=== PATIENT | male | born 1940 | race Caucasian/White ===

== ENCOUNTER 2021-08-15 10:55 | Inpatient (IN) | payer MEDICARE ==
[~2021-08-15] VITALS: Ht 182.9 cm; Wt 92.5 kg
[2021-08-15] MEDS ORDERED: MULT-1136 PO (12:47)
[2021-08-15] MEDS ORDERED: BISA10SU8 RC (12:47)
[2021-08-15] MEDS ORDERED: ACET325C7 PO (12:47)
[2021-08-15] MEDS ORDERED: AMIO200T6 PO (12:47)
[2021-08-15] MEDS ORDERED: FLUT9.9S NSEACH (12:47)
[2021-08-15] MEDS ORDERED: PANT20TA18 PO (12:47)
[2021-08-15] MEDS ORDERED: FERR324T4 PO (12:47)
[2021-08-15] MEDS ORDERED: MAGN400O7 PO (12:47)
[2021-08-15] MEDS ORDERED: GABA300C PO (12:47)
[2021-08-15] MEDS ORDERED: AMLO-250 PO (12:47)
[2021-08-15] MEDS ORDERED: MORP4VIA INJ (12:47)
[2021-08-15] MEDS ORDERED: FURO40TA4 PO (12:47)
[2021-08-15] MEDS ORDERED: ASPI-1238 PO (12:47)
[2021-08-15] MEDS ORDERED: ROSU10TA28 PO (12:47)
[2021-08-15] MEDS ORDERED: DOCU100T2 PO (12:47)
[2021-08-15] MEDS ORDERED: DICL20GE TP (12:47)
[2021-08-15] MEDS ORDERED: ONDA4TAB11 PO (12:47)
[2021-08-15] MEDS ORDERED: POLY17PO6 PO (12:47)
[2021-08-15] MEDS ORDERED: BISA5TAB8 PO (12:47)
[2021-08-15] MEDS ORDERED: OXYC15TA56 PO (12:47)
[2021-08-15] MEDS ORDERED: FINA5TAB6 PO (12:47)
[2021-08-15] MEDS ORDERED: LOSA50TA63 PO (12:47)
[2021-08-15] MEDS ORDERED: NALO0.4D3 IJ (12:47)
[2021-08-15] MEDS ORDERED: DOXA8TAB73 PO (12:47)
[2021-08-15] MEDS ORDERED: TRZ50T PO (12:48)
[2021-08-15] MEDS ORDERED: ASCO100024 PO (12:48)
[2021-08-15] MEDS ORDERED: CHOL10007 PO (12:48)
[2021-08-15] MEDS ORDERED: SPIR25TA5 PO (12:48)
[2021-08-15] MEDS ORDERED: guaiFENesin/CODEINE (ROBITUSSIN AC) 10ML UDC PO PRN (14:30)
[2021-08-15] MEDS ORDERED: MELATONIN 3 MG TABLET PO PRN (14:30)
[2021-08-15] MEDS ORDERED: CALCIUM CARBONATE 500 MG (TUMS) TAB.CHEW PO PRN (14:30)
[2021-08-15] MEDS ORDERED: LACTULOSE SYRUP 10GM/15ML (ENULOSE) 30ML UDC PO PRN (14:30)
[2021-08-15] MEDS ORDERED: LOPERAMIDE 2 MG (IMODIUM) TABLET PO PRN (14:30)
[2021-08-15] MEDS ORDERED: DOCUSATE SODIUM 100 MG (COLACE) CAP PO PRN (14:30)
[2021-08-15] MEDS ORDERED: ALPRAZolam 0.25 MG (XANAX) TAB PO PRN (14:30)
[2021-08-15] MEDS ORDERED: FLEET ENEMA ADULT 1 EA BTL PR PRN (14:30)
[2021-08-15] MEDS ORDERED: diphenhydrAMINE 25 MG TAB (BENADRYL) PO PRN (14:30)
[2021-08-15] MEDS ORDERED: ONDANSETRON 4 MG (ZOFRAN) ORAL DISSOLVE TAB PO PRN ×2 (14:30→15:00)
[2021-08-15] MEDS ORDERED: BISACODYL 10 MG SUPP (DULCOLAX) PR PRN (14:30)
[2021-08-15] MEDS ORDERED: MILK OF MAGNESIA 400 MG/5 ML 30 ML UDC PO PRN (15:00)
[2021-08-15] MEDS ORDERED: PROMETHAZINE INJ 25 MG/ML (PHENERGAN) AMP IM PRN (15:00)
[2021-08-15] MEDS ORDERED: BISACODYL 10 MG SUPP (DULCOLAX) RC PRN (15:00)
[2021-08-15] MEDS ORDERED: PANTOPRAZOLE 20 MG TABLET (PROTONIX) PO PRN (15:00)
[2021-08-15] MEDS ORDERED: traZODone 50 MG (DESYREL) TAB PO PRN (15:00)
[2021-08-15] MEDS ORDERED: polyethylene glycoL POWDER 17 GM (MIRALAX) PACK PO SCH (15:00)
[2021-08-15] MEDS ORDERED: BISACODYL 5 MG (DULCOLAX) TABLET PO PRN (15:00)
[2021-08-15] MEDS ORDERED: OXYCODONE HCL 15 MG PO PRN (15:00)
[2021-08-15] MEDS ORDERED: morphine INJ 10 MG/ML 1ML (SYR OR VIAL) IVP PRN (15:00)
[2021-08-15] MEDS ORDERED: ONDANSETRON 4 MG/2 ML (SDV) Z0FRAN IVP PRN (15:00)
[2021-08-15] MEDS ORDERED: NON-FORMULARY MEDICATION 1 EA EA (Acetaminophen (Tylenol) 650 MG) PO PRN (15:00)
--- NOTE | 2021-08-15 15:00 | PM&R Post Admission Assessment ---
PM&R HP Date of Visit: Aug 15, 2021 Time of Visit: 15:00 History of Present Illness CC: Debility from lumbar spine surgery per Dr Hoang HPI: This is an 80-year-old white male patient of Dr. Pruitt in [place], Dr. Crum Cardiology, and Dr. Ramos oncology who has a past medical history of hepatocellular carcinoma on immunomodulators who presented to inpatient rehab due to slow recovery and severe nausea and vomiting with urinary retention in need of aggressive structured physical therapy in order to return home to independent living. Dr. Londono will be consulted. CC: Nausea and imbalance HPI: 80 yo frail man presents with nausea and imbalance following back surgery on Thursday (08/13) to address a slipped disk (attained in Sep 2020) performed by Dr. Hoang at [facility]. Pt's nausea started 2 days ago. Pt has had one bowel movement since surgery (yesterday). Pt only able to eat jello yesterday, on clear liquid diet now. Pt reports abdominal pain is 4.5-5/10. PMH: Heart attack (1988), AFib (dx 2019), hepatocellular carcinoma (dx Dec 2020), CAD, PAF (once), HTN, HLD, GERD, Carotid dx (40% stenosed) PSH: Appendectomy (1958), CABG (2011), R shoulder replaced (2013), L elbow nerve relocated (2014), cataract removed (2015), eyelid reduction (2016), back surgery for slipped disk (2020) ALL: fenofibrate Home Meds: Active Reported Vitamin D3 (Cholecalciferol (Vitamin D3)) 25 Mcg Capsule 25 Mcg PO DAILY Vitamin C (Ascorbic Acid) 1,000 Mg Tablet 1,000 Mg PO DAILY Trazodone HCl 50 Mg Tablet 50 Mg PO HS PRN Spironolactone 25 Mg Tablet 25 Mg PO DAILY Rosuvastatin Calcium 10 Mg Tablet 10 Mg PO HS Pantoprazole Sodium 20 Mg Tablet.dr 20 Mg PO DAILY PRN Roxicodone (Oxycodone HCl) 15 Mg Tablet 15 Mg PO Q6H PRN Multivitamin 1 Each Tablet 1 Each PO DAILY Losartan Potassium 50 Mg Tablet 50 Mg PO DAILY Neurontin (Gabapentin) 300 Mg Capsule 300 Mg PO TID Furosemide 40 Mg Tablet 40 Mg PO DAILY Flonase Allergy Relief (Fluticasone Propionate) 9.9 Ml [place].susp 2 [place] NSEACH DAILY Finasteride 5 Mg Tablet 5 Mg PO HS Ferrous Sulfate 324 Mg Tablet. 324 Mg PO DAILY Doxazosin Mesylate 8 Mg Tablet 8 Mg PO HS Voltaren Arthritis Pain (Diclofenac Sodium) 20 Gm Gel..gram. 1 Applic TP QID Aspirin EC (Aspirin) 81 Mg Tablet. 81 Mg PO DAILY Amlodipine Besylate 5 Mg Tablet 5 Mg PO DAILY Amiodarone HCl 200 Mg Tablet 200 Mg PO DAILY Miralax (Polyethylene Glycol 3350) 17 Gm Powd.pack 17 Gm PO Q12H Ondansetron Odt (Ondansetron) 4 Mg Tab.rapdis 4 Mg PO Q6H PRN Naloxone HCl 0.4 Mg/1 Ml Syringe 0.25 Ml IJ UD PRN Morphine Sulfate 4 Mg/1 Ml Vial 0.5 Ml INJ Q4H PRN Milk of Magnesia (Magnesium Hydroxide) 400 Mg/5 Ml Oral.susp 30 Ml PO DAILY PRN Docusate Sodium 100 Mg Tablet 100 Mg PO BID Bisacodyl 10 Mg Supp.rect 10 Mg RC DAILY PRN Bisacodyl 5 Mg Tablet.dr 10 Mg PO Q12H PRN Tylenol (Acetaminophen) 325 Mg Capsule 650 Mg PO Q6H PRN SH: Stopped cigarette smoking in 1974 No ETOH use No recretional drug use Lives with , has entirely handicapped home 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, 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) FH: Mother from "heart dx" in her 40's Father from "heart dx" at 92 ROS: No heart palpitations No SOB [place] feverish yesterday Feels cold Nausea and abdominal pain present Exam: Hyperactive bowel sounds Heart-RRR Lungs- wheezy Cap refill <3 sec Post tibial pulse (2/4) bilat No pedal edema Incision site healing well; TAE drain in place with slightly bloody discharge PT/OT had been in for eval Pt identified as being very heavy and difficult to move by his nurse, indicating inability to support himself Imaging: Acute abdominal series- limited view due to brace; gaseous distention small and large bowel diffusely; "nonspecific bowel gas pattern could suggest ileus" Labs: N/A Assessment: Possible ileus Nausea HTN Debility following surgery CAD Hepatocellular carcinoma Hx PAF HLD Hx GERD Plan: Consult surgery for possible ileus Address abdominal pain medically Get labs (CBC w/ diff, CMP) Start scopolamine patch Start IV Reglan 5mg q6, Phenergen IM Clear liquid diet Get an EKG Continue immunosuppressive trt for HCC PAPI RENTERIA Past Pkpbulf-Igounj-Uvlcfo Hx Past Med/Social Hx: Reviewed Nursing Past Med/Soc Hx, Reviewed and Corrections made Patient Social History Marrital Status: Employed/Student: retired Alcohol Use: Denies Use Smoking Status: Never a Smoker Past Medical History Surgeries: Orthopedic Cardiac: Atrial Fibrillation, Coronary Artery Disease, High Cholesterol, Hypertension Gastrointestinal: Gastroesophageal Reflux Musculoskeletal: Chronic Back Pain Cancer: Liver Did You Recieve Any Treatments: Yes What Type of Treatment Did You: Other (immunomodulator) PM&R Allergy/Meds/Data Review Allergies Coded Allergies: fenofibrate (Verified Allergy, Unknown, 08/15/21) Home Medications Scheduled Amiodarone HCl (Amiodarone HCl), 200 MG PO DAILY, (Reported) Amlodipine Besylate (Amlodipine Besylate), 5 MG PO DAILY, (Reported) Ascorbic Acid (Vitamin C), 1,000 MG PO DAILY, (Reported) Aspirin (Aspirin EC), 81 MG PO DAILY, (Reported) Cholecalciferol (Vitamin D3) (Vitamin D3), 25 MCG PO DAILY, (Reported) Diclofenac Sodium (Voltaren Arthritis Pain), 1 APPLIC TP QID, (Reported) Docusate Sodium (Docusate Sodium), 100 MG PO BID, (Reported) Doxazosin Mesylate (Doxazosin Mesylate), 8 MG PO HS, (Reported) Ferrous Sulfate (Ferrous Sulfate), 324 MG PO DAILY, (Reported) Finasteride (Finasteride), 5 MG PO HS, (Reported) Fluticasone Propionate (Flonase Allergy Relief), 2 SPRAY NSEACH DAILY, (Reported) Furosemide (Furosemide), 40 MG PO DAILY, (Reported) Gabapentin (Neurontin), 300 MG PO TID, (Reported) Losartan Potassium (Losartan Potassium), 50 MG PO DAILY, (Reported) Multivitamin (Multivitamin), 1 EACH PO DAILY, (Reported) Polyethylene Glycol 3350 (Miralax), 17 GM PO Q12H, (Reported) Rosuvastatin Calcium (Rosuvastatin Calcium), 10 MG PO HS, (Reported) Spironolactone (Spironolactone), 25 MG PO DAILY, (Reported) Scheduled PRN Acetaminophen (Tylenol), 650 MG PO Q6H PRN for PAIN-MILD (1-4), (Reported) Bisacodyl (Bisacodyl), 10 MG PO Q12H PRN for CONSTIPATION-4TH LINE, (Reported) Bisacodyl (Bisacodyl), 10 MG RC DAILY PRN for CONSTIPATION-4TH LINE, (Reported) Magnesium Hydroxide (Milk of Magnesia), 30 ML PO DAILY PRN for CONSTIPATION-7TH LINE, (Reported) Morphine Sulfate (Morphine Sulfate), 0.5 ML INJ Q4H PRN for PAIN-SEVERE (8-10), (Reported) Naloxone HCl (Naloxone HCl), 0.25 ML IJ UD PRN for NARCOTIC SEDATION/OVERDOSE, (Reported) Ondansetron (Ondansetron Odt), 4 MG PO Q6H PRN for NAUSEA/VOMITING-1ST LINE, (Reported) Oxycodone HCl (Roxicodone), 15 MG PO Q6H PRN for PAIN-SEVERE (8-10), (Reported) Pantoprazole Sodium (Pantoprazole Sodium), 20 MG PO DAILY PRN for HEARTBURN, (Reported) Trazodone HCl (Trazodone HCl), 50 MG PO HS PRN for SLEEP, (Reported) Current Medications Current Medications Reviewed Review of Systems Constitutional: see HPI, malaise, weakness EENTM: no symptoms reported Respiratory: no symptoms reported Cardiovascular: no symptoms reported Gastrointestinal: loss of appetite, nausea, vomiting Genitourinary: other (retention) Musculoskeletal: back pain Skin: no symptoms reported Psychiatric/Neurological: No Symptoms Reported All Other Systems Reviewed Negative Unless Noted: Yes Physical Exam Physical Exam Vital Signs Capillary Refill : Height, Weight, BMI Height: '" Weight: lbs. oz. kg; BMI Method: General Appearance: No Apparent Distress, WD/WN, Chronically ill, Obese, Other (pale) Eyes: Bilateral Eye Normal Inspection, Bilateral Eye PERRL HEENT: PERRL/EOMI, Normal ENT Inspection, Pharynx Normal Neck: Full Range of Motion, Normal Inspection, Non Tender, Supple, Carotid Bruit Respiratory: Chest Non Tender, Lungs Clear, No Accessory Muscle Use, No Res piratory Distress, Decreased Breath Sounds Cardiovascular: Regular Rate, Rhythm, No Edema, No Gallop, No JVD, No Murmur, Normal Peripheral Pulses Gastrointestinal: Normal Bowel Sounds, No Organomegaly, No Pulsatile Mass, Non Tender, Soft Back: Normal Inspection, No CVA Tenderness, No Vertebral Tenderness Extremity: Normal Capillary Refill, Normal Inspection, Normal Range of Motion (limited lower extremities), Non Tender, No Calf Tenderness, No Pedal Edema Neurologic/Psychiatric: Alert, Oriented x3, No Motor/Sensory Deficits, track greaser II- XII Norm as Tested, Abnormal Gait, Depressed Affect, Motor Weakness (lower legs) Skin: Normal Color, Warm/Dry Lymphatic: No Adenopathy PM&R Medical Assessment & Plan REHAB/MEDICAL ASSESSMENT AND PLAN: REHAB IMPAIRMENT GROUP: Lumbar stenosis ETIOLOGIC DIAGNOSIS: Lumbar stenosis The comorbidities that impact the patients function and/or functional outcome by: Hepatocellular carcinoma on immunomodulator, severe postoperative nausea and vomiting, urinary retention, severe debility REHAB PLAN: The patient is being admitted to our comprehensive inpatient rehabilitation facility and can tolerate the intensity of service consisting of at least: 180 minutes of therapy a day, 5 out of 7 days a week Rehab treatment will consist of: PT and OT will focus on regaining function well nausea and vomiting subsides in order to use assistive devices to increase independence in ADLs to return back home with The patient/family has a good understanding of our discharge process and will benefit from an interdisciplinary inpatient rehabilitation program. The patient has potential to make improvement and is in need of at least two of the following multidisciplinary therapies including but not limited to physical, occupational, speech, and prosthetics and orthotics. Additionally the patient will need services from respiratory, nutritional services, wound care, psychology, etc. (Customize this to each patient). Given the patients complex condition and risk of further medical complications, rehabilitation services cannot be safely or effectively provided at a lower level of care such as a care home facility. BARRIERS TO DISCHARGE: Severe debility with nausea and vomiting ESTIMATED LOS: 10 days DISPOSITION: Home RELEVANT CHANGES SINCE PREADMISSION SCREENING: I have compared the patients medical and functional status at the time of the preadmission screening and there are: No changes PROGNOSIS: Fair REHABILITATION GOALS: 1. PT and OT will focus on regaining function well nausea and vomiting subsides in order to use assistive devices to increase independence in ADLs to return back home with All the above goals were reviewed with the patient and he/she is in agreement. By signing this document, I acknowledge that I have personally performed a full physical examination on this patient within 24 hours of admission to this inpatient rehabilitation facility and have determined the patient to be able to tolerate the above course of treatment at an intensive level for a reasonable period of time. I will be completing a detailed individualized Plan of Care for this patient by day #4 of the patients stay based upon the Preadmission Screen, the Post-Admission Evaluation, and the therapy evaluations. Admission Dx/Comorbidities: (1) Spinal stenosis ICD Codes: M48.00 - Spinal stenosis, site unspecified (2) Hepatocellular carcinoma ICD Codes: C22.0 - Liver cell carcinoma (3) Encounter for monitoring immunomodulating therapy ICD Codes: Z51.81 - Encounter for therapeutic drug level monitoring; Z79.899 - Other terminal system operator (current) drug therapy (4) Nausea and vomiting ICD Codes: R11.2 - Nausea with vomiting, unspecified (5) Urinary retention ICD Codes: R33.9 - Retention of urine, unspecified Assessment/Plan Assessment and Plan Assess & Plan/Chief Complaint Assessment: Status post spinal stenosis surgery by Dr. HOANG Hepatocellular carcinoma on immune modulator for Dr. Ramos Severe nausea and vomiting postoperatively Mccormick cath in place Urinary retention Atrial fibrillation CAD Plan: Inpatient rehab protocol Supportive care Gentle IV fluid WARREN FARAH DO Aug 15, 2021 15:00
[2021-08-15] MEDS ORDERED: morphine INJ 4 MG/ML 1 ML (VIAL/SYRINGE) IV PRN (15:30)
[2021-08-15] MEDS ORDERED: SCOPOLAMINE 1.5 MG (TRANSDERM-SCOP) PATCH TD NR (15:30)
--- NOTE | 2021-08-15 15:33 | Consultation-Cardiology ---
HPI-Cardiology Cardiology Consultation: Date of Consultation 08/15/21 Time Seen by a Provider: 15:30 Date of Admission 08-15-21 Attending Physician Pina Arreola DO Admitting Physician Arnold James MD Consulting Physician Mariano Londono MD HPI: Chief Complaint: Cardiac management Mr. Reddy is an 80 yr old male admitted to [facility] from [facility] following back surgery on 08-13-[address] Hoang. He reports his primary computer systems hardware analyst is Dr. Crum whom he sees in [place], [place]. He denies any c/o CP, SOB, palpitations, syncope, near syncope or LE swelling. He is reporting nausea. Review of Systems-Cardiology Review of Systems Constitutional: No chills, No fever, No lightheadedness Eyes: No vision change Ears/Nose/Throat: No epistaxis, No recent hearing loss Respiratory: As described under HPI Cardiovascular: As described under HPI Gastrointestinal: No constipation, No diarrhea; nausea, vomiting Genitourinary: other (urinary catheter in place) Skin: No rash on exposed areas, No ulcerations on exposed areas Psychiatric/Neurological: No anxiety, No depression, No syncope Hematologic: No bleeding abnormalities NBC-Rrfitb-Ucnwft Hx Past Medical History PMH As described under Assessment. Family Medical History Family Medical History: No reported family h/o CAD Allergies and Home Medications Allergies Coded Allergies: fenofibrate (Verified Allergy, Unknown, 08/15/21) Patient Home Medication List Acetaminophen (Tylenol) 325 Mg Capsule, 650 MG PO Q6H PRN for PAIN-MILD (1-4), (Reported) Entered as Reported by: SARAH MONIQUE on 08/15/211246 Last Action: Converted Amiodarone HCl (Amiodarone HCl) 200 Mg Tablet, 200 MG PO DAILY, (Reported) Entered as Reported by: SARAH MONIQUE on 08/15/211246 Last Action: Continued Amlodipine Besylate (Amlodipine Besylate) 5 Mg Tablet, 5 MG PO DAILY, (Reported) Entered as Reported by: SARAH MONIQUE on 08/15/211246 Last Action: Continued Ascorbic Acid (Vitamin C) 1,000 Mg Tablet, 1,000 MG PO DAILY, (Reported) Entered as Reported by: SARAH MONIQUE on 08/15/21 124 Last Action: Held Aspirin (Aspirin EC) 81 Mg Tablet.dr, 81 MG PO DAILY, (Reported) Entered as Reported by: SARAH MONIQUE on 08/15/211246 Last Action: Continued Bisacodyl (Bisacodyl) 5 Mg Tablet.dr, 10 MG PO Q12H PRN for CONSTIPATION-4TH LINE, (Reported) Entered as Reported by: SARAH MONIQUE on 08/15/211246 Last Action: Continued Bisacodyl (Bisacodyl) 10 Mg Supp.rect, 10 MG RC DAILY PRN for CONSTIPATION-4TH LINE, (Reported) Entered as Reported by: SARAH MONIQUE on 08/15/211246 Last Action: Continued Cholecalciferol (Vitamin D3) (Vitamin D3) 25 Mcg Capsule, 25 MCG PO DAILY, (Reported) Entered as Reported by: SARAH MONIQUE on 08/15/211247 Last Action: Held Diclofenac Sodium (Voltaren Arthritis Pain) 20 Gm Gel..gram., 1 APPLIC TP QID, (Reported) Entered as Reported by: SARAH MONIQUE on 08/15/211246 Last Action: Continued Docusate Sodium (Docusate Sodium) 100 Mg Tablet, 100 MG PO BID, (Reported) Entered as Reported by: SARAH MONIQUE on 08/15/211246 Last Action: Held Doxazosin Mesylate (Doxazosin Mesylate) 8 Mg Tablet, 8 MG PO HS, (Reported) Entered as Reported by: SARAH MONIQUE on 08/15/211246 Last Action: Converted Ferrous Sulfate (Ferrous Sulfate) 324 Mg Tablet.dr, 324 MG PO DAILY, (Reported) Entered as Reported by: SARAH MONIQUE on 08/15/211246 Last Action: Held Finasteride (Finasteride) 5 Mg Tablet, 5 MG PO HS, (Reported) Entered as Reported by: SARAH MONIQUE on 08/15/211246 Last Action: Continued Fluticasone Propionate (Flonase Allergy Relief) 9.9 Ml [place].susp, 2 SPRAY NSEACH DAILY, (Reported) Entered as Reported by: SARAH MONIQUE on 08/15/211246 Last Action: Converted Furosemide (Furosemide) 40 Mg Tablet, 40 MG PO DAILY, (Reported) Entered as Reported by: SARAH MONIQUE on 08/15/211246 Last Action: Held Gabapentin (Neurontin) 300 Mg Capsule, 300 MG PO TID, (Reported) Entered as Reported by: SARAH MONIQUE on 08/15/211246 Last Action: Continued Losartan Potassium (Losartan Potassium) 50 Mg Tablet, 50 MG PO DAILY, (Reported) Entered as Reported by: SARAH MONIQUE on 08/15/211246 Last Action: Continued Magnesium Hydroxide (Milk of Magnesia) 400 Mg/5 Ml Oral.susp, 30 ML PO DAILY PRN for CONSTIPATION-7TH LINE, (Reported) Entered as Reported by: SARAH MONIQUE on 08/15/211246 Last Action: Continued Morphine Sulfate (Morphine Sulfate) 4 Mg/1 Ml Vial, 0.5 ML INJ Q4H PRN for PAIN- SEVERE (8-10), (Reported) Entered as Reported by: SARAH MONIQUE on 08/15/211246 Last Action: Held Multivitamin (Multivitamin) 1 Each Tablet, 1 EACH PO DAILY, (Reported) Entered as Reported by: SARAH MONIQUE on 08/15/211246 Last Action: Held Naloxone HCl (Naloxone HCl) 0.4 Mg/1 Ml Syringe, 0.25 ML IJ UD PRN for NARCOTIC SEDATION/OVERDOSE, (Reported) Entered as Reported by: SARAH MONIQUE on 08/15/211246 Last Action: Held Ondansetron (Ondansetron Odt) 4 Mg Tab.rapdis, 4 MG PO Q6H PRN for NAUSEA/VOMITING-1ST LINE, (Reported) Entered as Reported by: SARAH MONIQUE on 08/15/211246 Last Action: Continued Oxycodone HCl (Roxicodone) 15 Mg Tablet, 15 MG PO Q6H PRN for PAIN-SEVERE (8- 10), (Reported) Entered as Reported by: SARAH MONIQUE on 08/15/211246 Last Action: Converted Pantoprazole Sodium (Pantoprazole Sodium) 20 Mg Tablet.dr, 20 MG PO DAILY PRN for HEARTBURN, (Reported) Entered as Reported by: SARAH MONIQUE on 08/15/211246 Last Action: Continued Polyethylene Glycol 3350 (Miralax) 17 Gm Powd.pack, 17 GM PO Q12H, (Reported) Entered as Reported by: SARAH MONIQUE on 08/15/211246 Last Action: Continued Rosuvastatin Calcium (Rosuvastatin Calcium) 10 Mg Tablet, 10 MG PO HS, (Reported) Entered as Reported by: SARAH MONIQUE on 08/15/211246 Last Action: Continued Spironolactone (Spironolactone) 25 Mg Tablet, 25 MG PO DAILY, (Reported) Entered as Reported by: SARAH MONIQUE on 08/15/211247 Last Action: Held Trazodone HCl (Trazodone HCl) 50 Mg Tablet, 50 MG PO HS PRN for SLEEP, (Reported) Entered as Reported by: SARAH MONIQUE on 08/15/211247 Last Action: Continued Physical Exam-Cardiology Physical Exam Vital Signs/I&O 08/16/21 07:49 Temp 37.0 Pulse 74 Resp 24 B/P (MAP) 157/67 (97) Pulse Ox 96 O2 Delivery Nasal Cannula O2 Flow Rate 1.00 Capillary Refill : Constitutional: AAO x 3, well-developed, well-nourished HEENT: PERRL, hearing is well preserved Neck: carotid bruit, carotid pulses are 2 + bilaterally Respiratory: No accessory muscle use, No respiratory distress; chest expansion is symmetric, chest is bilaterally symmetric, lungs clear to auscultation Cardiovascular: regular rate-rhythm, S1 and S2 Gastrointestinal: No tender; soft, hernia (umbilical), audible bowel sounds Genital/Rectal: other (urinary catheter in place) Extremities: no lower extremity edema bilateral Neurologic/Psychiatric: grossly intact (moves all extremities) Skin: jaundice Other comments Dressing in place to back; did not remove; TAE drain in place with sanguineous drainage Data Review Labs Laboratory Tests 08/16/21 05:40: White Blood Count 4.8, Red Blood Count 2.78L, Hemoglobin 8.4L, Hematocrit 25L, Mean Corpuscular Volume 90, Mean Corpuscular Hemoglobin 30, Mean Corpuscular Hemoglobin Concent 34, Red Cell Distribution Width 13.5, Platelet Count 94L, Mean Platelet Volume 8.6L, Immature Granulocyte % (Auto) 1, Neutrophils (%) (Auto) 75, Lymphocytes (%) (Auto) 9L, Monocytes (%) (Auto) 15H, Eosinophils (%) (Auto) 0, Basophils (%) (Auto) 0, Neutrophils # (Auto) 3.7, Lymphocytes # (Auto) 0.4L, Monocytes # (Auto) 0.7, Eosinophils # (Auto) 0.0, Basophils # (Auto) 0.0, Immature Granulocyte # (Auto) 0.0, Percent Immature Platelet Fraction 1.4, Sodium Level 128L, Potassium Level 4.0, Chloride Level 98, Carbon Dioxide Level 23, Anion Gap 7, Blood Urea Nitrogen 15, Creatinine 0.64, Estimat Glomerular Filtration Rate 120, BUN/Creatinine Ratio 23, Glucose Level 109H, Calcium Level 7.8L, Corrected Calcium 8.4L, Total Bilirubin 1.3H, Aspartate Amino Transf (AST/SGOT) 30, Alanine Aminotransferase (ALT/SGPT) 21, Alkaline Phosphatase 43, Total Protein 5.4L, Albumin 3.2 A/P-Cardiology Assessment/Admission Diagnosis Recent back surgery at [facility] in [place], [place] by Dr. [place] on 08-13-21 CAD - H/O coronary stent placement x1 in Oct 2011 at [facility] - H/O CABG at [facility] in Dec 2011 - exact details unknown H/O PAF - reports one episode in 2019 - maintained on Amiodarone and ASA - reports no reoccurrence - managed by Dr. Crum Carotid dz - reports 40% blockage - unsure of exact details HTN - controlled HLD - statin tx - followed by Dr. Guzman Oncology - Liver cancer for which he is receiving immunosuppressive tx - dx in Dec 2020 GERD Nausea - undetermined etiology - management per medical services Discussion and Recomendations Records from [facility] reviewed in depth Continue current medication regimen Request records from Dr. Crum at [facility] Management of nausea per medical services Monitor lab from time to time Further recs will be based on his course We would like to thank Dr. Arreola for this consult RACHEL DAY Aug 15, 2021 15:33
[2021-08-15] MEDS: NS IV 1000 ML 1,000 ML IV SCH (15:58)
[2021-08-15] MEDS: METOCLOPRAMIDE INJ 10 MG/2 ML (REGLAN) IVP SCH ×2 (15:59→21:36)
--- NOTE | 2021-08-15 15:59 | Physical Therapy Evaluation ---
PT Evaluation-General Medical Diagnosis Admission Date Aug 15, 2021 at 14:30 Medical Diagnosis: Lumbar laminectomy Onset Date: Aug 13, 2021 Therapy Diagnosis Therapy Diagnosis: impaired mobility, strength, endurance Precautions Precautions/Isolations: Fall Prevention, Standard Precautions Referral Physician: Pina Arreola DO Reason for Referral: Evaluation/Treatment Medical History Pertinent Medical History: Atrial Fib, CABG, HTN, [place] Reviewed History: Yes Social History Home: Single Level Current Living Status: Spouse Entry Into Home: Level Entry Prior Prior Level of Function SCALE: Activities may be completed with or without assistive devices. 8-Erqaxxbcio-zhhautl completes the activity by him/herself with no assistance from a helper. 5-Set-up or Clean-up Assistance-helper sets up or cleans up; patient completes activity. [place] assists only prior to or following the activity. 4-Supervision or Touching Assistance-helper provides verbal cues and/or touching/steadying and/or contact guard assistance as patient completes activity. Assistance may be provided throughout the activity or intermittently. 3-Partial/Moderate Assistance-helper does LESS THAN HALF the effort. [place] lifts, holds or supports trunk or limbs, but provides less than half the effort. 2-Substantial/Maximal Assistance-helper does MORE THAN HALF the effort. [place] lifts or holds trunk or limbs and provides more than half the effort. 6-Elntrxrgm-sajywt does ALL the effort. Patient does none of the effort to complete the activity. Or, the assistance of 2 or more helpers is required for the patient to complete the activity. If activity was not attempted, code reason: 7-Patient Refused. 9-Not Applicable-not attempted and the patient did not perform the activity before the current illness, exacerbation or injury. 10-Not Attempted due to Environmental Limitations-(lack of equipment, weather restraints, etc.). 88-Not Attempted due to Medical Conditions or Safety Concerns. Bed Mobility: 6 Transfers (B,C,W/C): 6 Gait: 6 Indoor Mobility (Ambulation): Independent SPC PT Evaluation-Current Subjective Patient in bed pre tx, agrees to PT, has 3/10 pain in back. Will be co-treating with OT due to poor patient mobility, strength, endurance, increased pain with activity, coordinate UE and LE with activity, safety and reduce risk of falls. Pt/Family Goals to be independent at home Objective Patient Orientation: Person, Place, Situation back brace ROM/Strength ROM Lower Extremities WNL Strength Lower Extremities LLE (hip flexion 3-/5, knee flexion 3+/5, knee extension 3+/5, dorsiflexion 3+/5), RLE (hip flexion 3-/5, knee flexion 3+/5, knee extension 3+/5, dorsiflexion 3+/5) Sensory Hearing: Functional Sensation Right Lower Extremit: Intact Sensation Left Lower Extremity: Impaired (patient has some numbness on his left foot) Transfers Roll Left & Right (QC): 3 Sit to Lying (QC): 1 Lying to Sitting/Side of Bed(Q: 1 Sit to Stand (QC): 3 Chair/Fgt-yo-Axsvj Xfer(QC): 3 Toilet Transfer (QC): 3 Car Transfer (QC): 88 Patient performs bed mobility with mod assist, supine <-> sit dependent (assist of 2), sit <-> stand mod assist, transfers min assist. Patient is not safe to perform a car transfer at this time due to unsteadiness and pain. Patient needs cues for hand placement and safety. Gait Does the Patient Walk?: Yes Mode of Locomotion: Walk Anticipated Mode of Locomotion: Walk Walk 10 feet (QC): 3 Walk 50 ft with 2 Turns(QC): 88 Walk 150 ft (QC): 88 Walking 10ft/uneven surface-QC: 88 Distance: 10'x3 Gait Assistive Device: FWW Comments/Gait Description Patient can ambulate 10' with a rolling walker with min assist. Patient needs assist with balance, is very unsteady, lists to the left, knees act like they are going to buckle. Wheelchair Training Does the Pt Use a Wheelchair?: Yes Distance: 100'x2 Wheel 50 ft with 2 turns (QC): 3 Wheel 150 ft (QC): 88 Type of Wheelchair: Manual Stairs 1 Step (curb) (QC): 88 4 Steps (QC): 88 12 Steps (QC): 88 Balance Sitting Static: Fair Sitting Dynamic: Fair Standing Static: Poor Standing Dynamic: Poor Picking up an Object (QC): 88 Treatment PT performed bed mobility and transfers, ambulation, WC mobility, standing and positioning during dressing and bathing, OT performed dressing and bathing, brace don/doff training, UE positioning and safety during activity. Assessment/Needs Patient in bed post tx with nurse call, phone, tray, all needs met. Patient has impaired mobility, strength, endurance. Patient needs assist especially during ambulation due to possible knee buckling. Rehab Potential: Fair PT Short Term Goals Short Term Goals Time Frame: Aug 22, 2021 Roll Left & Right: 4 Sit to lyin Lying to sitting on side of be: 3 Sit to stand: 4 Chair/gfd-cs-didso transfer: 4 Walk 10 feet: 4 Walk 50 feet with two turns: 4 PT Nursing Home Goals Labor Relations Analyst Goals PT Labor Relations Analyst Goals Time Frame: Sep 05, 2021 Roll Left & Right (QC): 4 Sit to Lying (QC): 4 Lying-Sitting on Side/Bed(QC): 4 Sit to Stand (QC): 4 Chair/Ipm-sq-Hnare Xfer(QC): 4 Toilet Transfer (QC): 4 Car Transfer (QC): 4 Does the Patient Walk: Yes Walk 10 feet (QC): 4 Walk 50ft with 2 Turns (QC): 4 Walk 150 ft (QC): 4 Walking 10ft on Uneven Surface: 4 1 Step (curb) (QC): 4 4 Steps (QC): 4 12 Steps (QC): 88 Picking up an Object (QC): 88 Wheel 50 feet with 2 turns (QC: 9 Wheel 150 feet: 9 PT Plan Problem List Problem List: Activity Tolerance, Functional Strength, Safety, Balance, Gait, Transfer, Bed Mobility, ROM Treatment/Plan Treatment Plan: Continue Plan of Care Treatment Plan: Bed Mobility, Education, Functional Activity Itzel, Functional Strength, Group Therapy, Gait, Safety, Therapeutic Exercise, Transfers Treatment Duration: Sep 05, 2021 Frequency: At least 5 of 7 days/Wk (IRF) Estimated Hrs Per Day: 1.5 hours per day Patient and/or Family Agrees t: Yes Safety Risks/Education Patient Education: Gait Training, Transfer Techniques, Reviewed Precautions, Correct Positioning, W/C Management, Reviewed Don/Doff Brace, Safety Issues Teaching Recipient: Patient Teaching Methods: Demonstration, Discussion Response to Teaching: Reinforcement Needed Discharge Recommendations Plan Patient will perform bed mobility and transfer training, balance and endurance training, functional strengthening, stair training, gait training, and education, to improve functional mobility and independence at home. Therapy Discharge Recommendati: Scheduled Assistance, Home & Family, Post Acute PT Time/GCodes Time In: 1440 Time Out: 1610 Total Billed Treatment Time: 90 Total Billed Treatment 1 visit EVM 10' FA 80' PT eval from [id number], co-treat from [id number] ANITRA MORALES PT Aug 15, 2021 15:59
--- NOTE | 2021-08-15 16:02 | Occupational Therapy Eval ---
OT Evaluation-General/PLF Medical Diagnosis Admission Date Aug 15, 2021 at 14:30 Medical Diagnosis: Lumbar laminectomy Onset Date: Aug 13, 2021 Therapy Diagnosis Therapy Diagnosis: Impaired adls, strength, balance, safety, endurance Precautions Precautions/Isolations: Fall Prevention, Standard Precautions Comments Spinal precautions. Lifting restriction of 5 lbs. Brace on at all times when OOB. Pt able to shower, dressing must remain on and new dressing donned post shower. Referral Physician: amanda Medical History Pertinent Medical History: Atrial Fib, CABG, HTN, [place] Additional Medical History Cancer (liver), pneumonia, Rt shoulder replacement, Current History Pt direct admit from [facility]. S/P L4-S1, TLIF, PSF with L5-S1 Yusuf laminectomy, and L4-5 decompression. He reports living in a single story home with his . Indep with adls. His performs all IADLs. He states he was using a walker within his home and a cane when out in the community. Reviewed History: Yes Social History Home: Single Level Current Living Status: Spouse Entry Into Home: Level Entry ADL-Prior Level of Function SCALE: Activities may be completed with or without assistive devices. 8-Tjwxuhvzqp-jfxdtzb completes the activity by him/herself with no assistance from a helper. 5-Set-up or Clean-up Assistance-helper sets up or cleans up; patient completes activity. [place] assists only prior to or following the activity. 4-Supervision or Touching Assistance-helper provides verbal cues and/or touching/steadying and/or contact guard assistance as patient completes activity. Assistance may be provided throughout the activity or intermittently. 3-Partial/Moderate Assistance-helper does LESS THAN HALF the effort. [place] lifts, holds or supports trunk or limbs, but provides less than half the effort. 2-Substantial/Maximal Assistance-helper does MORE THAN HALF the effort. [place] lifts or holds trunk or limbs and provides more than half the effort. 2-Gmeexbjvj-gyypad does ALL the effort. Patient does none of the effort to complete the activity. Or, the assistance of 2 or more helpers is required for the patient to complete the activity. If activity was not attempted, code reason: 7-Patient Refused. 9-Not Applicable-not attempted and the patient did not perform the activity before the current illness, exacerbation or injury. 10-Not Attempted due to Environmental Limitations-(lack of equipment, weather restraints, etc.). 88-Not Attempted due to Medical Conditions or Safety Concerns. Self Care: Independent Functional Cognition: Independent DME/Equipment: Bath Chair, Shower Drive Self: Yes OT Current Status Subjective Pt reports pain as 5/10. Rn notified. Agreeable to treatment. Appearance Pt left sitting in chair, all needs within reach at OT departure. Mental Status/Objective Patient Orientation: Person, Place, Situation Attachments: Drains, Mccormick Catheter, IV, Oxygen, Other-See Comments Current Dentures/Partials: No Hand Dominance: Right Upper Extremity ROM RUE with old shoulder replacement; full range. LUE shoulder flex: ~60 degrees AROM, ~125 degerees PROM (to pain tolerance) Elbow-distally: WFL TAE drain. ADL-Treatment Eating (QC): 6 Oral Hygiene (QC): 3 Shower/Bathe Self (QC): 3 (mod) Upper Body Dressing (QC): 3 (min) Lower Body Dressing (QC): 2 On/Off Footwear (QC): 1 Toileting Hygiene (QC): 2 Co-treat with PT secondary to poor activity tolerance, pain, impaired balance and high fall risk. Education on spinal precautions given at start of session. Mod a to roll R and maintain log roll technique. Max a to elevate trunk and bring LEs' off side of bed. Dep to don/doff brace. Pt unable to stand from lower surface. Mod-max a to stand from elevated height. Pt very unsteady on feet, re quires mod a for balance. With distractions and fatigue, balance worsens. Poor management with walker as pt has tendency to push walker too far anteriorly. He was able to propel w/c to/from therapy gym but requires several rest breaks secondary to fatigue. Partial Sponge bath performed at w/c level. Cues to initiate washing certain body parts. Max a to stand. Dep to wash buttocks as pt requires BUE support to maintain balance. LB not addressed. At this time, pt would require assist to wash below knees due to poor flexibility and would benefit from instruction on use of LHS. (for adherence to spinal precautions.) Min a to don shirt as pt needed assist with pulling down around torso. Dep to don/doff socks. Again, pt would benefit from education on use of AE. Pt sat in w/c for grooming tasks, yet if performed at baseline (standing), pt would require balance assist to complete task. Education OT Patient Education: Correct positioning, Energy conservation, Instructions don/doff splint/brace, Modified ADL techniques, Progress toward Goal/Update tx plan, Purpose of tx/functional activities, Reviewed precautions, Rehab process, Safety issues, Transfer techniques, Use of adapted equipment, W/C management Teaching Recipient: Patient Teaching Methods: Demonstration, Discussion Response to Teaching: Verbalize Understanding, Reinforcement Needed OT Short Term Goals Short Term Goals Time Frame: Aug 29, 2021 Eatin Oral hygiene: 5 Toileting hygiene: 3 (min) Shower/bathe self: 3 (min) Upper body dressin Lower body dressin Putting on/taking off footwear: 3 OT Mcc Goals Hl7 Developer Goals Time Frame: Sep 05, 2021 Eating (QC): 6 Oral Hygiene (QC): 6 Toileting Hygiene (QC): 6 Shower/Bathe Self (QC): 4 Upper Body Dressing (QC): 5 Lower Body Dressing (QC): 4 On/Off Footwear (QC): 5 1=Demonstrate adherence to instructed precautions during ADL tasks. 2=Patient will verbalize/demonstrate understanding of assistive devices/modifications for ADL. 3=Patient will improve strength/tolerance for activity to enable patient to perform ADL's. OT Education/Plan Problem List/Assessment Assessment: Decreased Activ Tolerance, Decreased Safety Aware, Decreased UE Strength, Impaired Bed Mobility, Impaired Cognition, Impaired Funct Balance, Impaired Self-Care Skills, Restricted Funct UE ROM Discharge Recommendations Plan/Recommendations: Continue POC Target Placement ongoing assessment. Anticipate Home health with family support. Treatment Plan/Plan of Care Treatment,Training & Education: Yes Patient would benefit from OT for education, treatment and training to promote independence in ADL's, mobility, safety and/or upper extremity function for ADL's. Plan of Care: ADL Retraining, Functional Mobility, Group Exercise/Act as Ind, Orthotic Fitting/Training, UE Funct Exercise/Act, W/C Management Training Treatment Duration: Sep 05, 2021 Frequency: At least 5 of 7 days/Wk (IRF) Estimated Hrs Per Day: 1.5 hours per day Agreement: Yes Rehab Potential: Fair Time/GCodes Start Time: 14:30 Stop Time: 16:10 Total Time Billed (hr/min): 90 Billed Treatment Time 1 visit, EVM (10 min) FA x2 (35 min) ADL x3 (45 min) OT eval ([id number]), PT eval ([id number]), Co-treat ([id number]) Ines Valdivia OT Aug 15, 2021 16:02
[2021-08-15 16:34] VITALS: BP 154/66
[2021-08-15] MEDS: DICLOFENAC 1% GEL 100 GM (VOLTAREN) TUBE TP SCH ×2 (17:00→21:36)
--- NOTE | 2021-08-15 17:13 | Diagnostic Imaging Report ---
INDICATION: Nausea AP view of the chest is obtained with supine and upright views of the abdomen. Examination is somewhat limited due to brace overlying the lower chest and abdomen. Overall heart size and pulmonary vascularity are within normal limits. There is no evidence of pneumothorax or consolidation. There is a right shoulder arthroplasty. Evaluation of alignment at the glenohumeral joint is limited due to positioning. Consideration could be given to dedicated view if indicated. There is gaseous distention of small and large bowel, diffusely. Stool does reach the level of the rectum. No definite pneumoperitoneum is identified. There has been surgical fusion at the lumbosacral level. IMPRESSION: Postoperative findings as described with nonspecific bowel gas pattern which could reflect ileus. No definite acute abnormality is seen. Dictated by: Dictated on workstation # [id number]
[2021-08-15] MEDS ORDERED: FLU QUAD HIGH DOSE 240 MCG/0.7 ML 2021-22 (FLUZONE) IM ONE (17:15)
--- NOTE | 2021-08-15 17:39 | Consultation-Cardiology ---
HPI-Cardiology Cardiology Consultation: Date of Consultation 08/15/21 Time Seen by a Provider: 17:10 Date of Admission Attending Physician Pina Arreola DO Admitting Physician Arnold James MD Consulting Physician SADIA CORDERO MD, MA, FACP, FACC, [facility], CCDS Physician requesting consult: Dr Arreola HPI: Chief Complaint: Cardiac management Mr. Reddy is an 80 yr old male admitted to [facility] from [facility] following back surgery on 08-13-[address] Hoang. He reports his primary canceling machine operator is Dr. Crum whom he sees in [place], [place]. He denies any c/o CP, SOB, palpitations, syncope, near syncope or LE swelling. He is reporting nausea. Review of Systems-Cardiology Review of Systems Constitutional: No chills, No fever, No lightheadedness Eyes: No vision change Ears/Nose/Throat: No epistaxis, No recent hearing loss Respiratory: As described under HPI Cardiovascular: As described under HPI Gastrointestinal: No constipation, No diarrhea; nausea, vomiting Genitourinary: other (urinary catheter in place) Skin: No rash on exposed areas, No ulcerations on exposed areas Psychiatric/Neurological: No anxiety, No depression, No syncope Hematologic: No bleeding abnormalities BKU-Hvkgjb-Ieyjjh Hx Patient Social History Smoking Status: Former Smoker Have you traveled recently?: No Alcohol Use?: No Pt feels they are or have been: No Past Medical History PMH As described under Assessment. Family Medical History Family Medical History: No reported family h/o CAD Allergies and Home Medications Allergies Coded Allergies: fenofibrate (Verified Allergy, Unknown, 08/15/21) Patient Home Medication List Home Medication List Reviewed: Yes Acetaminophen (Tylenol) 325 Mg Capsule, 650 MG PO Q6H PRN for PAIN-MILD (1-4), (Reported) Entered as Reported by: SARAH MONIQUE on 08/15/211246 Last Action: Converted Amiodarone HCl (Amiodarone HCl) 200 Mg Tablet, 200 MG PO DAILY, (Reported) Entered as Reported by: SARAH MONIQUE on 08/15/211246 Last Action: Continued Amlodipine Besylate (Amlodipine Besylate) 5 Mg Tablet, 5 MG PO DAILY, (Reported) Entered as Reported by: SARAH MONIQUE on 08/15/211246 Last Action: Continued Ascorbic Acid (Vitamin C) 1,000 Mg Tablet, 1,000 MG PO DAILY, (Reported) Entered as Reported by: SARAH MONIQUE on 08/15/211247 Last Action: Held Aspirin (Aspirin EC) 81 Mg Tablet.dr, 81 MG PO DAILY, (Reported) Entered as Reported by: SARAH MONIQUE on 08/15/211246 Last Action: Continued Bisacodyl (Bisacodyl) 5 Mg Tablet.dr, 10 MG PO Q12H PRN for CONSTIPATION-4TH LINE, (Reported) Entered as Reported by: SARAH MONIQUE on 08/15/211246 Last Action: Continued Bisacodyl (Bisacodyl) 10 Mg Supp.rect, 10 MG RC DAILY PRN for CONSTIPATION-4TH LINE, (Reported) Entered as Reported by: SARAH MONIQUE on 08/15/211246 Last Action: Continued Cholecalciferol (Vitamin D3) (Vitamin D3) 25 Mcg Capsule, 25 MCG PO DAILY, (Repo rted) Entered as Reported by: SARAH MONIQUE on 08/15/211247 Last Action: Held Diclofenac Sodium (Voltaren Arthritis Pain) 20 Gm Gel..gram., 1 APPLIC TP QID, (Reported) Entered as Reported by: SARAH MONIQUE on 08/15/211246 Last Action: Continued Docusate Sodium (Docusate Sodium) 100 Mg Tablet, 100 MG PO BID, (Reported) Entered as Reported by: SARAH MONIQUE on 08/15/211246 Last Action: Held Doxazosin Mesylate (Doxazosin Mesylate) 8 Mg Tablet, 8 MG PO HS, (Reported) Entered as Reported by: SARAH MONIQUE on 08/15/211246 Last Action: Converted Ferrous Sulfate (Ferrous Sulfate) 324 Mg Tablet.dr, 324 MG PO DAILY, (Reported) Entered as Reported by: SARAH MONIQUE on 08/15/211246 Last Action: Held Finasteride (Finasteride) 5 Mg Tablet, 5 MG PO HS, (Reported) Entered as Reported by: SARAH MONIQUE on 08/15/211246 Last Action: Continued Fluticasone Propionate (Flonase Allergy Relief) 9.9 Ml Pryor.susp, 2 SPRAY NSEACH DAILY, (Reported) Entered as Reported by: SARAH MONIQUE on 08/15/211246 Last Action: Converted Furosemide (Furosemide) 40 Mg Tablet, 40 MG PO DAILY, (Reported) Entered as Reported by: SARAH MONIQUE on 08/15/211246 Last Action: Held Gabapentin (Neurontin) 300 Mg Capsule, 300 MG PO TID, (Reported) Entered as Reported by: SARAH MONIQUE on 08/15/211246 Last Action: Continued Losartan Potassium (Losartan Potassium) 50 Mg Tablet, 50 MG PO DAILY, (Reported) Entered as Reported by: SARAH MONIQUE on 08/15/211246 Last Action: Continued Magnesium Hydroxide (Milk of Magnesia) 400 Mg/5 Ml Oral.susp, 30 ML PO DAILY PRN for CONSTIPATION-7TH LINE, (Reported) Entered as Reported by: SARAH MONIQUE on 08/15/211246 Last Action: Continued Morphine Sulfate (Morphine Sulfate) 4 Mg/1 Ml Vial, 0.5 ML INJ Q4H PRN for PAIN- SEVERE (8-10), (Reported) Entered as Reported by: SARAH MONIQUE on 08/15/211246 Last Action: Held Multivitamin (Multivitamin) 1 Each Tablet, 1 EACH PO DAILY, (Reported) Entered as Reported by: SARAH MONIQUE on 08/15/211246 Last Action: Held Naloxone HCl (Naloxone HCl) 0.4 Mg/1 Ml Syringe, 0.25 ML IJ UD PRN for NARCOTIC SEDATION/OVERDOSE, (Reported) Entered as Reported by: SARAH MONIQUE on 08/15/211246 Last Action: Held Ondansetron (Ondansetron Odt) 4 Mg Tab.rapdis, 4 MG PO Q6H PRN for NAUSEA/VOMITING-1ST LINE, (Reported) Entered as Reported by: SARAH MONIQUE on 08/15/211246 Last Action: Continued Oxycodone HCl (Roxicodone) 15 Mg Tablet, 15 MG PO Q6H PRN for PAIN-SEVERE (8- 10), (Reported) Entered as Reported by: SARAH MONIQUE on 08/15/211246 Last Action: Converted Pantoprazole Sodium (Pantoprazole Sodium) 20 Mg Tablet.dr, 20 MG PO DAILY PRN for HEARTBURN, (Reported) Entered as Reported by: SARAH MONIQUE on 08/15/211246 Last Action: Continued Polyethylene Glycol 3350 (Miralax) 17 Gm Powd.pack, 17 GM PO Q12H, (Reported) Entered as Reported by: SARAH MONIQUE on 08/15/211246 Last Action: Continued Rosuvastatin Calcium (Rosuvastatin Calcium) 10 Mg Tablet, 10 MG PO HS, (Reported) Entered as Reported by: SARAH MONIQUE on 08/15/211246 Last Action: Continued Spironolactone (Spironolactone) 25 Mg Tablet, 25 MG PO DAILY, (Reported) Entered as Reported by: SARAH MONIQUE on 08/15/211247 Last Action: Held Trazodone HCl (Trazodone HCl) 50 Mg Tablet, 50 MG PO HS PRN for SLEEP, (Reported) Entered as Reported by: SARAH MONIQUE on 08/15/211247 Last Action: Continued Physical Exam-Cardiology Physical Exam Vital Signs/I&O 08/15/21 16:34 Temp 37.4 Pulse 77 Resp 18 B/P (MAP) 154/66 (95) Pulse Ox 96 O2 Delivery Room Air Capillary Refill : Constitutional: AAO x 3, well-developed, well-nourished HEENT: PERRL, hearing is well preserved Neck: carotid bruit, carotid pulses are 2 + bilaterally Respiratory: No accessory muscle use, No respiratory distress; chest expansion is symmetric, chest is bilaterally symmetric, lungs clear to auscultation Cardiovascular: regular rate-rhythm, S1 and S2 Gastrointestinal: No tender; soft, hernia (umbilical), audible bowel sounds Genital/Rectal: other (urinary catheter in place) Extremities: no lower extremity edema bilateral Neurologic/Psychiatric: grossly intact (moves all extremities) Skin: jaundice A/P-Cardiology Assessment/Admission Diagnosis Recent back surgery at [facility] in [place], [place] by Dr. [place] on 08-13-21 CAD - H/O coronary stent placement x1 in Oct 2011 at [facility] - H/O CABG at [facility] in Dec 2011 - exact details unknown H/O PAF - reports one episode in 2019 - maintained on Amiodarone and ASA - reports no reoccurrence - managed by Dr. Radames Mandel dz - reports 40% blockage - unsure of exact details HTN - controlled HLD - statin tx - followed by Dr. Guzman Oncology - Liver cancer for which he is receiving immunosuppressive tx - dx in Dec 2020 GERD Nausea - undetermined etiology - management per medical services Discussion and Recomendations Records from [facility] reviewed in depth Continue current medication regimen Request records from Dr. Crum at [facility] Management of nausea per medical services Monitor lab from time to time Further recs will be based on his course We would like to thank Dr. Arreola for this consult SADIA CORDERO MD FACP FAC CCDS Aug 15, 2021 17:39
--- NOTE | 2021-08-15 17:43 | Progress Note ---
PAPI RENTERIA 08/15/21 1743: Progress Note CC: Nausea and imbalance HPI: 80 yo frail man presents with nausea and imbalance following back surgery on Thursday (08/13) to address a slipped disk (attained in Sep 2020) performed by Dr. Hoang at [facility]. Pt's nausea started 2 days ago. Pt has had one bowel movement since surgery (yesterday). Pt only able to eat jello yesterday, on clear liquid diet now. Pt reports abdominal pain is 4.5-5/10. PMH: Heart attack (1988), AFib (dx 2019), hepatocellular carcinoma (dx Dec 2020), CAD, PAF (once), HTN, HLD, GERD, Carotid dx (40% stenosed) PSH: Appendectomy (1958), CABG (2011), R shoulder replaced (2013), L elbow nerve relocated (2014), cataract removed (2015), eyelid reduction (2016), back surgery for slipped disk (2020) ALL: fenofibrate Home Meds: Active Reported Vitamin D3 (Cholecalciferol (Vitamin D3)) 25 Mcg Capsule 25 Mcg PO DAILY Vitamin C (Ascorbic Acid) 1,000 Mg Tablet 1,000 Mg PO DAILY Trazodone HCl 50 Mg Tablet 50 Mg PO HS PRN Spironolactone 25 Mg Tablet 25 Mg PO DAILY Rosuvastatin Calcium 10 Mg Tablet 10 Mg PO HS Pantoprazole Sodium 20 Mg Tablet.dr 20 Mg PO DAILY PRN Roxicodone (Oxycodone HCl) 15 Mg Tablet 15 Mg PO Q6H PRN Multivitamin 1 Each Tablet 1 Each PO DAILY Losartan Potassium 50 Mg Tablet 50 Mg PO DAILY Neurontin (Gabapentin) 300 Mg Capsule 300 Mg PO TID Furosemide 40 Mg Tablet 40 Mg PO DAILY Flonase Allergy Relief (Fluticasone Propionate) 9.9 Ml [place].susp 2 [place] NSEACH DAILY Finasteride 5 Mg Tablet 5 Mg PO HS Ferrous Sulfate 324 Mg Tablet. 324 Mg PO DAILY Doxazosin Mesylate 8 Mg Tablet 8 Mg PO HS Voltaren Arthritis Pain (Diclofenac Sodium) 20 Gm Gel..gram. 1 Applic TP QID Aspirin EC (Aspirin) 81 Mg Tablet. 81 Mg PO DAILY Amlodipine Besylate 5 Mg Tablet 5 Mg PO DAILY Amiodarone HCl 200 Mg Tablet 200 Mg PO DAILY Miralax (Polyethylene Glycol 3350) 17 Gm Powd.pack 17 Gm PO Q12H Ondansetron Odt (Ondansetron) 4 Mg Tab.rapdis 4 Mg PO Q6H PRN Naloxone HCl 0.4 Mg/1 Ml Syringe 0.25 Ml IJ UD PRN Morphine Sulfate 4 Mg/1 Ml Vial 0.5 Ml INJ Q4H PRN Milk of Magnesia (Magnesium Hydroxide) 400 Mg/5 Ml Oral.susp 30 Ml PO DAILY PRN Docusate Sodium 100 Mg Tablet 100 Mg PO BID Bisacodyl 10 Mg Supp.rect 10 Mg RC DAILY PRN Bisacodyl 5 Mg Tablet.dr 10 Mg PO Q12H PRN Tylenol (Acetaminophen) 325 Mg Capsule 650 Mg PO Q6H PRN SH: Stopped cigarette smoking in 1974 No ETOH use No recretional drug use Lives with , has entirely handicapped home 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, [employer]) FH: Mother from "heart dx" in her 40's Father from "heart dx" at 92 ROS: No heart palpitations No SOB Sheldon feverish yesterday Feels cold Nausea and abdominal pain present Exam: Hyperactive bowel sounds Heart-RRR Lungs- wheezy Cap refill <3 sec Post tibial pulse (2/4) bilat No pedal edema Incision site healing well; TAE drain in place with slightly bloody discharge PT/OT had been in for eval Pt identified as being very heavy and difficult to move by his nurse, indicating inability to support himself Imaging: Acute abdominal series- limited view due to brace; gaseous distention small and large bowel diffusely; "nonspecific bowel gas pattern could suggest ileus" Labs: N/A Assessment: Possible ileus Nausea HTN Debility following surgery CAD Hepatocellular carcinoma Hx PAF HLD Hx GERD Plan: Consult surgery for possible ileus Address abdominal pain medically Get labs (CBC w/ diff, CMP) Start scopolamine patch Start IV Reglan 5mg q6, Phenergen IM Clear liquid diet Get an EKG Continue immunosuppressive trt for HCC PINA FARAH DO 08/15/212039: Supervisory-Addendum Brief Verification & Attestation Participated in pt care: history, MDM, physical Personally performed: exam, history, MDM, supervision of care Care discussed with: Medical Student Procedures: n/a Results interpretation: Verified all documentation Verification and Attestation of Medical Student E/M Service A medical student performed and documented this service in my presence. I reviewed and verified all information documented by the medical student and made modifications to such information, when appropriate. I personally performed the physical exam and medical decision making. Pina Farah, Aug 15, 2021,20:40 PAPI RENTERIA Aug 15, 2021 17:43 PINA FARAH DO Aug 15, 2021 20:40
[2021-08-15 20:00] VITALS: BP 133/63
[2021-08-15] MEDS ORDERED: NON-FORMULARY MEDICATION 1 EA EA (Doxazosin Mesylate 8 MG) PO SCH (21:00)
[2021-08-15] MEDS: polyethylene glycoL POWDER 17 GM (MIRALAX) PACK PO SCH (21:06)
[2021-08-15] MEDS: ROSUVASTATIN 10 MG (CRESTOR) TABLET PO SCH (21:35)
[2021-08-15] MEDS: doxAzosin 4 MG (CARDURA) TAB PO SCH (21:35)
[2021-08-15] MEDS: GABAPENTIN 300 MG (NEURONTIN) CAP PO SCH (21:35)
[2021-08-15] MEDS: SENNA W/DOCUSATE (SENOKOT S) TABLET PO SCH (21:35)
[2021-08-15] MEDS: FINASTERIDE (PROSCAR) 5 MG TAB PO SCH (21:36)
[2021-08-15] MEDS: DOCUSATE SODIUM 100 MG (COLACE) CAP PO SCH (21:36)
[2021-08-16] MEDS: METOCLOPRAMIDE INJ 10 MG/2 ML (REGLAN) IVP SCH ×4 (03:19→21:12)
[2021-08-16 05:45] LABS: EOSINOPHILS % (AUTO) 0 % (0-10)
[2021-08-16 05:47] LABS: BASOPHILS % (AUTO) 0 % (0-10); HEMATOCRIT 25 % (40-54); HEMOGLOBIN 8.4 g/dL (13.3-17.7); LYMPHOCYTES # (AUTO) 0.4 10^3/uL (1.0-4.0); LYMPHOCYTES % (AUTO) 9 % (12-44); MEAN CORPUSCULAR HEMOGLOBIN 30 pg (25-34); MEAN CORPUSCULAR HGB CONC 34 g/dL (32-36); MEAN CORPUSCULAR VOLUME 90 fL (80-99); MEAN PLATELET VOLUME 8.6 fL (9.0-12.2); MONOCYTES # (AUTO) 0.7 10^3/uL (0.0-1.0); MONOCYTES % (AUTO) 15 % (0-12); NEUTROPHILS # (AUTO) 3.7 10^3/uL (1.8-7.8); NEUTROPHILS % (AUTO) 75 % (42-75); PLATELET COUNT 94 10^3/uL (130-400); WHITE BLOOD COUNT 4.8 10^3/uL (4.3-11.0)
[2021-08-16 06:00] LABS: ALBUMIN 3.2 GM/DL (3.2-4.5)
[2021-08-16 06:02] LABS: CALCIUM 7.8 MG/DL (8.5-10.1)
[2021-08-16 06:03] LABS: TOTAL PROTEIN 5.4 GM/DL (6.4-8.2)
[2021-08-16 06:05] LABS: BILIRUBIN,TOTAL 1.3 MG/DL (0.1-1.0)
[2021-08-16 06:06] LABS: CREATININE SERUM 0.64 MG/DL (0.60-1.30)
[2021-08-16 07:49] VITALS: BP 157/67
[2021-08-16] MEDS: NS IV 1000 ML 1,000 ML IV SCH (08:00)
--- NOTE | 2021-08-16 08:15 | PM&R Progress Note ---
Subjective HPI/CC On Admission Date Seen by Provider: Aug 16, 2021 Time Seen by Provider: 05:45 Subjective/Events-last exam 08/16/2021: Patient settling in Still nauseated Dr. Tse will be consulted Abdominal x-ray reviewed Hyponatremia noted at 128 Hemoglobin 8.4 Review of Systems Gastrointestinal: Nausea, Vomiting Musculoskeletal: back pain Objective Exam Vital Signs Vital Signs Date Time Temp Pulse Resp B/P (MAP) Pulse Ox O2 Delivery O2 Flow Rate FiO2 08/16/21 15:22 98 Nasal Cannula 2.00 08/16/21 13:27 78 20 08/16/21 07:49 37.0 157/67 (97) Capillary Refill : General Appearance: No Apparent Distress, WD/WN, Chronically ill, Obese, Other (pale) HEENT: PERRL/EOMI, Normal ENT Inspection, Pharynx Normal Neck: Full Range of Motion, Normal Inspection, Non Tender, Supple, Carotid Bruit Respiratory: Chest Non Tender, Lungs Clear, No Accessory Muscle Use, No Respiratory Distress, Decreased Breath Sounds Cardiovascular: Regular Rate, Rhythm, No Edema, No Gallop, No JVD, No Murmur, Normal Peripheral Pulses Gastrointestinal: Normal Bowel Sounds, No Organomegaly, No Pulsatile Mass, Non Tender, Soft Back: Normal Inspection, No CVA Tenderness, No Vertebral Tenderness Extremity: Normal Capillary Refill, Normal Inspection, Normal Range of Motion (limited lower extremities), Non Tender, No Calf Tenderness, No Pedal Edema Neurologic/Psychiatric: Alert, Oriented x3, No Motor/Sensory Deficits, concrete spreader II- XII Norm as Tested, Abnormal Gait, Depressed Affect, Motor Weakness (lower legs) Skin: Normal Color, Warm/Dry Lymphatic: No Adenopathy Results/Procedures Lab Laboratory Tests 08/16/21 05:40 Patient resulted labs reviewed. FIM Transfers Therapy Code Descriptions/Definitions Functional [place] Measure: 0=Not Assessed/NA 4=Minimal Assistance 1=Total Assistance 5=Supervision or Setup 2=Maximal Assistance 6=Modified [place] 3=Moderate Assistance 7=Complete IndependenceSCALE: Activities may be completed with or without assistive devices. 3-Vvlrdkbqnn-ctvultl completes the activity by him/herself with no assistance from a helper. 5-Set-up or Clean-up Assistance-helper sets up or cleans up; patient completes activity. Cosby assists only prior to or following the activity. 4-Supervision or Touching Assistance-helper provides verbal cues and/or t ouching/steadying and/or contact guard assistance as patient completes activity. Assistance may be provided throughout the activity or intermittently. 3-Partial/Moderate Assistance-helper does LESS THAN HALF the effort. Cosby lifts, holds or supports trunk or limbs, but provides less than half the effort. 2-Substantial/Maximal Assistance-helper does MORE THAN HALF the effort. Cosby lifts or holds trunk or limbs and provides more than half the effort. 2-Jjaglcbug-shweez does ALL the effort. Patient does none of the effort to complete the activity. Or, the assistance of 2 or more helpers is required for the patient to complete the activity. If activity was not attempted, code reason: 7-Patient Refused. 9-Not Applicable-not attempted and the patient did not perform the activity before the current illness, exacerbation or injury. 10-Not Attempted due to Environmental Limitations-(lack of equipment, weather restraints, etc.). 88-Not Attempted due to Medical Conditions or Safety Concerns. Roll Left to Right (QC): 3 Sit to Lying (QC): 1 Sit to Stand (QC): 3 Chair/Yay-wn-Dexfq Xfer(QC): 3 Car Transfer (QC): 88 Gait Training Does the Patient Walk?: Yes Walk 10 feet (QC): 3 Walk 50 ft with 2 Turns(QC): 88 Walk 150 ft (QC): 88 Walking 10ft/uneven surface-QC: 88 Gait Assistive Device: FWW Wheelchair Training Does the Pt Use a Wheelchair?: Yes Distance: 100'x2 Wheel 50 ft with 2 turns (QC): 3 Wheel 150 ft (QC): 88 Type of Wheelchair: Manual Stair Training 1 Step (curb) (QC): 88 4 Steps (QC): 88 12 Steps (QC): 88 Balance Picking up an Object (QC): 88 ADL-Treatment Eating (QC): 6 Oral Hygiene (QC): 3 Shower/Bathe Self (QC): 3 (mod) Upper Body Dressing (QC): 3 (min) Lower Body Dressing (QC): 2 On/Off Footwear (QC): 1 Toileting Hygiene (QC): 2 Assessment/Plan Assessment and Plan Assess & Plan/Chief Complaint Assessment: Status post spinal stenosis surgery by Dr. 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 Ramos Severe nausea and vomiting postoperatively Mccormick cath in place Urinary retention Atrial fibrillation CAD Plan: Inpatient rehab protocol Supportive care Gentle IV fluid 08/16/2021: Supportive care Gentle IV fluid Pain control (1) Spinal stenosis (2) Hepatocellular carcinoma (3) Encounter for monitoring immunomodulating therapy (4) Nausea and vomiting (5) Urinary retention WARREN FARAH DO Aug 16, 2021 08:15
[2021-08-16] MEDS ORDERED: NON-FORMULARY MEDICATION 1 EA EA (Fluticasone Propionate (Flonase Allergy Relief) 2 SPRAY) NSEACH SCH (09:00)
[2021-08-16] MEDS: SENNA W/DOCUSATE (SENOKOT S) TABLET PO SCH ×2 (09:05→21:12)
[2021-08-16] MEDS: polyethylene glycoL POWDER 17 GM (MIRALAX) PACK PO SCH ×2 (09:05→21:13)
[2021-08-16] MEDS: LOSARTAN 50 MG (COZAAR) TAB PO SCH (09:06)
[2021-08-16] MEDS: ASPIRIN E.C. 81 MG (ECOTRIN) TAB PO SCH (09:06)
[2021-08-16] MEDS: AMIODARONE 200 MG (CORDARONE) TAB PO SCH (09:06)
[2021-08-16] MEDS: amLODIPine 5 MG (NORVASC) TAB PO SCH (09:07)
[2021-08-16] MEDS: GABAPENTIN 300 MG (NEURONTIN) CAP PO SCH ×3 (09:07→21:11)
[2021-08-16] MEDS: DOCUSATE SODIUM 100 MG (COLACE) CAP PO SCH ×2 (09:07→21:12)
--- NOTE | 2021-08-16 09:45 | Consultation - Surgery ---
ONI MAJOR 08/16/21 0945: History of Present Illness History of Present Illness Patient Consulted On(bonnie/time) 08/16/21 09:40 Time Seen by Provider: 09:00 History of Present Illness An 80yo M had back surgery on 08/[address] Hoang and presents with Nausea that is controlled on scopolamine. He is on a clear liquid diet as he had only one bowel movement since his surgery. He notes that he had achy abdominal pain yesterday and that it is improved since yesterday, but still exists upon exertion. He mentions that his abdominal pain is not bothering him and that his back pain is severe. He is passing gas and he is currently on senna and miralax. Allergies and Home Medications Allergies Coded Allergies: fenofibrate (Verified Allergy, Unknown, 08/15/21) Patient Home Medication List Acetaminophen (Tylenol) 325 Mg Capsule, 650 MG PO Q6H PRN for PAIN-MILD (1-4), (Reported) Entered as Reported by: SARAH MONIQUE on 08/15/211246 Last Action: Converted Amiodarone HCl (Amiodarone HCl) 200 Mg Tablet, 200 MG PO DAILY, (Reported) Entered as Reported by: SARAH MONIQUE on 08/15/211246 Last Action: Continued Amlodipine Besylate (Amlodipine Besylate) 5 Mg Tablet, 5 MG PO DAILY, (Reported) Entered as Reported by: SARAH MONIQUE on 08/15/211246 Last Action: Continued Ascorbic Acid (Vitamin C) 1,000 Mg Tablet, 1,000 MG PO DAILY, (Reported) Entered as Reported by: SARAH MONIQUE on 08/15/211247 Last Action: Held Aspirin (Aspirin EC) 81 Mg Tablet.dr, 81 MG PO DAILY, (Reported) Entered as Reported by: SARAH MONIQUE on 08/15/211246 Last Action: Continued Bisacodyl (Bisacodyl) 5 Mg Tablet.dr, 10 MG PO Q12H PRN for CONSTIPATION-4TH LINE, (Reported) Entered as Reported by: SARAH MONIQUE on 08/15/211246 Last Action: Continued Bisacodyl (Bisacodyl) 10 Mg Supp.rect, 10 MG RC DAILY PRN for CONSTIPATION-4TH LINE, (Reported) Entered as Reported by: SARAH MONIQUE on 08/15/211246 Last Action: Continued Cholecalciferol (Vitamin D3) (Vitamin D3) 25 Mcg Capsule, 25 MCG PO DAILY, (Reported) Entered as Reported by: SARAH MONIQUE on 08/15/211247 Last Action: Held Diclofenac Sodium (Voltaren Arthritis Pain) 20 Gm Gel..gram., 1 APPLIC TP QID, (Reported) Entered as Reported by: SARAH MONIQUE on 08/15/211246 Last Action: Continued Docusate Sodium (Docusate Sodium) 100 Mg Tablet, 100 MG PO BID, (Reported) Entered as Reported by: SARAH MONIQUE on 08/15/211246 Last Action: Held Doxazosin Mesylate (Doxazosin Mesylate) 8 Mg Tablet, 8 MG PO HS, (Reported) Entered as Reported by: SARAH MONIQUE on 08/15/211246 Last Action: Converted Ferrous Sulfate (Ferrous Sulfate) 324 Mg Tablet.dr, 324 MG PO DAILY, (Reported) Entered as Reported by: SARAH MONIQUE on 08/15/211246 Last Action: Held Finasteride (Finasteride) 5 Mg Tablet, 5 MG PO HS, (Reported) Entered as Reported by: SARAH MONIQUE on 08/15/211246 Last Action: Continued Fluticasone Propionate (Flonase Allergy Relief) 9.9 Ml Alvarado.susp, 2 SPRAY NSEACH DAILY, (Reported) Entered as Reported by: SARAH MONIQUE on 08/15/211246 Last Action: Converted Furosemide (Furosemide) 40 Mg Tablet, 40 MG PO DAILY, (Reported) Entered as Reported by: SARAH MONIQUE on 08/15/211246 Last Action: Held Gabapentin (Neurontin) 300 Mg Capsule, 300 MG PO TID, (Reported) Entered as Reported by: SARAH MONIQUE on 08/15/211246 Last Action: Continued Losartan Potassium (Losartan Potassium) 50 Mg Tablet, 50 MG PO DAILY, (Reported) Entered as Reported by: SARAH MONIQUE on 08/15/211246 Last Action: Continued Magnesium Hydroxide (Milk of Magnesia) 400 Mg/5 Ml Oral.susp, 30 ML PO DAILY PRN for CONSTIPATION-7TH LINE, (Reported) Entered as Reported by: SARAH MONIQUE on 08/15/211246 Last Action: Continued Morphine Sulfate (Morphine Sulfate) 4 Mg/1 Ml Vial, 0.5 ML INJ Q4H PRN for PAIN- SEVERE (8-10), (Reported) Entered as Reported by: ASRAH MONIQUE on 08/15/211246 Last Action: Held Multivitamin (Multivitamin) 1 Each Tablet, 1 EACH PO DAILY, (Reported) Entered as Reported by: SARAH MONIQUE on 08/15/211246 Last Action: Held Naloxone HCl (Naloxone HCl) 0.4 Mg/1 Ml Syringe, 0.25 ML IJ UD PRN for NARCOTIC SEDATION/OVERDOSE, (Reported) Entered as Reported by: SARAH MONIQUE on 08/15/211246 Last Action: Held Ondansetron (Ondansetron Odt) 4 Mg Tab.rapdis, 4 MG PO Q6H PRN for NAUSEA/VOMITING-1ST LINE, (Reported) Entered as Reported by: SARAH MONIQUE on 08/15/211246 Last Action: Continued Oxycodone HCl (Roxicodone) 15 Mg Tablet, 15 MG PO Q6H PRN for PAIN-SEVERE (8- 10), (Reported) Entered as Reported by: SARAH MONIQUE on 08/15/211246 Last Action: Converted Pantoprazole Sodium (Pantoprazole Sodium) 20 Mg Tablet.dr, 20 MG PO DAILY PRN for HEARTBURN, (Reported) Entered as Reported by: SARAH MONIQUE on 08/15/211246 Last Action: Continued Polyethylene Glycol 3350 (Miralax) 17 Gm Powd.pack, 17 GM PO Q12H, (Reported) Entered as Reported by: SARAH MONIQUE on 08/15/211246 Last Action: Continued Rosuvastatin Calcium (Rosuvastatin Calcium) 10 Mg Tablet, 10 MG PO HS, (Reported) Entered as Reported by: SARAH MONIQUE on 08/15/211246 Last Action: Continued Spironolactone (Spironolactone) 25 Mg Tablet, 25 MG PO DAILY, (Reported) Entered as Reported by: SARAH MONIQUE on 08/15/211247 Last Action: Held Trazodone HCl (Trazodone HCl) 50 Mg Tablet, 50 MG PO HS PRN for SLEEP, (Reported) Entered as Reported by: SARAH MONIQUE on 08/15/21 2768 Last Action: Continued Past Joomssf-Onvquv-Lmobki Hx Patient Social History Smoking Status: Former Smoker (stopped smoking in 1974) Alcohol Use?: No Have you traveled recently?: No Surgeries Surgeries: Appendectomy, CABG, Ear Surgery, Joint Replacement (right shoulder), Orthopedic Cardiovascular Cardiac Disorders: Atrial Fibrillation, Coronary Artery Disease, High Cholesterol, Hypertension Gastrointestinal Gastrointestinal Disorders: Gastroesophageal Reflux Musculoskeletal Musculoskeletal Disorders: Chronic Back Pain Cancer Cancer: Liver Family Medical History Significant Family History: Other Conditions/Hx (mother and father from heart disease ) Review of Systems-General Constitutional: dizziness; No fever EENTM: hearing loss (hearing aid, but can hear well without it) Respiratory: cough; No dyspnea on exertion, No short of breath Cardiovascular: No chest pain, No edema, No palpitations Gastrointestinal: abdominal pain (achy pain around umbilicus upon excertion ), constipation; No diarrhea; nausea; No vomiting Genitourinary: no symptoms reported (catheter in place) Musculoskeletal: back pain Psychiatric/Neurological: Denies Anxiety, Denies Depressed Physical Exam-General Problems Physical Exam Vital Signs Vital Signs - First Documented 08/15/21 08/15/21 15:00 16:34 Temp 37.4 Pulse 77 Resp 18 B/P (MAP) 154/66 (95) Pulse Ox 95 O2 Delivery Nasal Cannula O2 Flow Rate 2.00 Capillary Refill : General Appearance: WD/WN, no apparent distress HEENT: PERRL/EOMI; No photophobia, No tonsillar exudate Neck: full range of motion, normal inspection Respiratory: chest non-tender, no respiratory distress, no accessory muscle use, decreased breath sounds Cardiovascular: regular rate, rhythm, no edema, other (high BP) Gastrointestinal: non tender, distended; No rebound Rectal: deferred Back: decreased range of motion, vertebral tenderness Neurologic/Psychiatric: hanger off II-XII nml as tested, alert, normal mood/affect, oriented x 3 Data Review Labs Laboratory Tests 08/16/21 05:40: White Blood Count 4.8, Red Blood Count 2.78L, Hemoglobin 8.4L, Hematocrit 25L, Mean Corpuscular Volume 90, Mean Corpuscular Hemoglobin 30, Mean Corpuscular Hemoglobin Concent 34, Red Cell Distribution Width 13.5, Platelet Count 94L, Mean Platelet Volume 8.6L, Immature Granulocyte % (Auto) 1, Neutrophils (%) (Auto) 75, Lymphocytes (%) (Auto) 9L, Monocytes (%) (Auto) 15H, Eosinophils (%) (Auto) 0, Basophils (%) (Auto) 0, Neutrophils # (Auto) 3.7, Lymphocytes # (Auto) 0.4L, Monocytes # (Auto) 0.7, Eosinophils # (Auto) 0.0, Basophils # (Auto) 0.0, Immature Granulocyte # (Auto) 0.0, Percent Immature Platelet Fraction 1.4, Sodium Level 128L, Potassium Level 4.0, Chloride Level 98, Carbon Dioxide Level 23, Anion Gap 7, Blood Urea Nitrogen 15, Creatinine 0.64, Estimat Glomerular Filtration Rate 120, BUN/Creatinine Ratio 23, Glucose Level 109H, Calcium Level 7.8L, Corrected Calcium 8.4L, Total Bilirubin 1.3H, Aspartate Amino Transf (AST/SGOT) 30, Alanine Aminotransferase (ALT/SGPT) 21, Alkaline Phosphatase 43, Total Protein 5.4L, Albumin 3.2 Assessment/Plan Assessment/Plan Assessment/Plan Assessment: Status post spinal stenosis surgery by Dr. HOANG and will receive PT and OT Hepatocellular carcinoma on immune modulator for Dr. Ramos Severe nausea and vomiting postoperatively that is well controlled on scopolamine Ileus: one bowel movement since back surgery on 08/13 so he will continue to receive senna and miralax, not concerned because he has passed gas and a previous bowel movement Urinary retention is treated with doxazosin Atrial fibrillation and CAD will be monitored by cardiology DEXTER SERRATO DO 08/16/212201: History of Present Illness History of Present Illness Date Seen by Provider: Aug 16, 2021 History of Present Illness Consult requested by Dr. Arreola for possible ileus. Patient is 80-year-old male who had back surgery on August [address] HOANG. Patient states that he has been having some nausea and vomiting. He states that he is now tolerating some clears. He states that he is not having abdominal pain at this time his pain is in his back where he had surgery. Patient states he is passing flatus. He had a bowel movement yesterday. He had abdominal x- ray showing possible ileus. Patient no other complaints at this time. Denies any nausea vomiting fever sweats chills shortness of breath or chest pain. Allergies and Home Medications Allergies Coded Allergies: fenofibrate (Verified Allergy, Unknown, 08/15/21) Patient Home Medication List Home Medication List Reviewed: Yes Acetaminophen (Tylenol) 325 Mg Capsule, 650 MG PO Q6H PRN for PAIN-MILD (1-4), (Reported) Entered as Reported by: SARAH MONIQUE on 08/15/211246 Last Action: Converted Amiodarone HCl (Amiodarone HCl) 200 Mg Tablet, 200 MG PO DAILY, (Reported) Entered as Reported by: SARAH MONIQUE on 08/15/211246 Last Action: Continued Amlodipine Besylate (Amlodipine Besylate) 5 Mg Tablet, 5 MG PO DAILY, (Reported) Entered as Reported by: SARAH MONIQUE on 08/15/211246 Last Action: Continued Ascorbic Acid (Vitamin C) 1,000 Mg Tablet, 1,000 MG PO DAILY, (Reported) Entered as Reported by: SARAH MONIQUE on 08/15/211247 Last Action: Held Aspirin (Aspirin EC) 81 Mg Tablet.dr, 81 MG PO DAILY, (Reported) Entered as Reported by: SARAH MONIQUE on 08/15/211246 Last Action: Continued Bisacodyl (Bisacodyl) 5 Mg Tablet.dr, 10 MG PO Q12H PRN for CONSTIPATION-4TH LINE, (Reported) Entered as Reported by: SARAH MONIQUE on 08/15/211246 Last Action: Continued Bisacodyl (Bisacodyl) 10 Mg Supp.rect, 10 MG RC DAILY PRN for CONSTIPATION-4TH LINE, (Reported) Entered as Reported by: SARAH MONIQUE on 08/15/211246 Last Action: Continued Cholecalciferol (Vitamin D3) (Vitamin D3) 25 Mcg Capsule, 25 MCG PO DAILY, (Reported) Entered as Reported by: SARAH MONIQUE on 08/15/211247 Last Action: Held Diclofenac Sodium (Voltaren Arthritis Pain) 20 Gm Gel..gram., 1 APPLIC TP QID, (Reported) Entered as Reported by: SARAH MONIQUE on 08/15/211246 Last Action: Continued Docusate Sodium (Docusate Sodium) 100 Mg Tablet, 100 MG PO BID, (Reported) Entered as Reported by: SARAH MONIQUE on 08/15/211246 Last Action: Held Doxazosin Mesylate (Doxazosin Mesylate) 8 Mg Tablet, 8 MG PO HS, (Reported) Entered as Reported by: SARAH MONIQUE on 08/15/211246 Last Action: Converted Ferrous Sulfate (Ferrous Sulfate) 324 Mg Tablet.dr, 324 MG PO DAILY, (Reported) Entered as Reported by: SARAH MONIQUE on 08/15/211246 Last Action: Held Finasteride (Finasteride) 5 Mg Tablet, 5 MG PO HS, (Reported) Entered as Reported by: SARAH MONIQUE on 08/15/211246 Last Action: Continued Fluticasone Propionate (Flonase Allergy Relief) 9.9 Ml Alvarado.susp, 2 SPRAY NSE ACH DAILY, (Reported) Entered as Reported by: SARAH MONIQUE on 08/15/211246 Last Action: Converted Furosemide (Furosemide) 40 Mg Tablet, 40 MG PO DAILY, (Reported) Entered as Reported by: SARAH OMNIQUE on 08/15/211246 Last Action: Held Gabapentin (Neurontin) 300 Mg Capsule, 300 MG PO TID, (Reported) Entered as Reported by: SARAH MONIQUE on 08/15/211246 Last Action: Continued Losartan Potassium (Losartan Potassium) 50 Mg Tablet, 50 MG PO DAILY, (Reported) Entered as Reported by: SARAH MONIQUE on 08/15/211246 Last Action: Continued Magnesium Hydroxide (Milk of Magnesia) 400 Mg/5 Ml Oral.susp, 30 ML PO DAILY PRN for CONSTIPATION-7TH LINE, (Reported) Entered as Reported by: SARAH MONIQUE on 08/15/211246 Last Action: Continued Morphine Sulfate (Morphine Sulfate) 4 Mg/1 Ml Vial, 0.5 ML INJ Q4H PRN for PAIN- SEVERE (8-10), (Reported) Entered as Reported by: SARAH MONIQUE on 08/15/211246 Last Action: Held Multivitamin (Multivitamin) 1 Each Tablet, 1 EACH PO DAILY, (Reported) Entered as Reported by: SARAH MONIQUE on 08/15/211246 Last Action: Held Naloxone HCl (Naloxone HCl) 0.4 Mg/1 Ml Syringe, 0.25 ML IJ UD PRN for NARCOTIC SEDATION/OVERDOSE, (Reported) Entered as Reported by: SARAH MONIQUE on 08/15/211246 Last Action: Held Ondansetron (Ondansetron Odt) 4 Mg Tab.rapdis, 4 MG PO Q6H PRN for NAUSEA/VOMITING-1ST LINE, (Reported) Entered as Reported by: SARAH MONIQUE on 08/15/211246 Last Action: Continued Oxycodone HCl (Roxicodone) 15 Mg Tablet, 15 MG PO Q6H PRN for PAIN-SEVERE (8- 10), (Reported) Entered as Reported by: SARAH OMNIQUE on 08/15/211246 Last Action: Converted Pantoprazole Sodium (Pantoprazole Sodium) 20 Mg Tablet.dr, 20 MG PO DAILY PRN for HEARTBURN, (Reported) Entered as Reported by: SARAH MONIQUE on 08/15/211246 Last Action: Continued Polyethylene Glycol 3350 (Miralax) 17 Gm Powd.pack, 17 GM PO Q12H, (Reported) Entered as Reported by: SARAH MONIQUE on 08/15/211246 Last Action: Continued Rosuvastatin Calcium (Rosuvastatin Calcium) 10 Mg Tablet, 10 MG PO HS, (Reported) Entered as Reported by: SARAH MONIQUE on 08/15/211246 Last Action: Continued Spironolactone (Spironolactone) 25 Mg Tablet, 25 MG PO DAILY, (Reported) Entered as Reported by: SARAH MONIQUE on 08/15/211247 Last Action: Held Trazodone HCl (Trazodone HCl) 50 Mg Tablet, 50 MG PO HS PRN for SLEEP, (Reported) Entered as Reported by: SARAH MONIQUE on 08/15/211247 Last Action: Continued Past Foflcvw-Fidmtb-Pvxqgb Hx Reviewed Nursing Assessment Reviewed/Agree w Nursing PMH: Yes Family Medical History Significant Family History: No Pertinent Family Hx Review of Systems-General Constitutional: No diaphoresis, No fever EENTM: No blurred vision, No double vision Respiratory: No cough, No short of breath Cardiovascular: No chest pain, No edema, No palpitations Gastrointestinal: No abdominal pain, No diarrhea; nausea, vomiting Genitourinary: No decreased output, No discharge Musculoskeletal: back pain Psychiatric/Neurological: Denies Anxiety, Denies Depressed, Denies Emotional Problems All Other Systems Reviewed Negative Unless Noted: Yes (Negative excepted noted.) Physical Exam-General Problems Physical Exam General Appearance: WD/WN, no apparent distress HEENT: PERRL/EOMI, normal ENT inspection Neck: full range of motion, supple Respiratory: chest non-tender, no respiratory distress, no accessory muscle use Cardiovascular: regular rate, rhythm, no edema Gastrointestinal: non tender, soft; No distended, No guarding, No rebound Rectal: deferred Back: decreased range of motion, vertebral tenderness Extremities: non-tender, no pedal edema, no calf tenderness Neurologic/Psychiatric: alert, normal mood/affect, oriented x 3 Skin: normal color, warm/dry Lymphatic: no adenopathy Assessment/Plan Assessment/Plan Assessment/Plan Nausea and vomiting Possible ileus demonstrated by x-ray Status post back surgery performed on August [address] HOANG. Hepatocellular carcinoma Urinary retention Patient on clear liquids at this time. Would continue on clear liquids until nausea and vomiting resolved. If feeling better would advance diet tomorrow. Patient to try and limit narcotic use because this could be also causing his symptoms. Patient had bowel movement yesterday is passing flatus at this time therefore I think his symptoms will improve with conservative measures. Would keep on bowel regimen. Urinary retention Mccormick in place. Patient understands and agrees with plan along with his family at bedside. Supervisory-Addendum Brief Verification & Attestation Participated in pt care: history, MDM, physical Personally performed: exam, history, MDM, supervision of care Care discussed with: Medical Student Procedures: n/a Results interpretation: Verified all documentation Verification and Attestation of Medical Student E/M Service A medical student performed and documented this service in my presence. I reviewed and verified all information documented by the medical student and made modifications to such information, when appropriate. I personally performed the physical exam and medical decision making. Dexter Serrato, Aug 16, 2021,22:06 ONI MAJOR Aug 16, 2021 09:45 DEXTER SERRATO DO Aug 16, 2021 22:02
--- NOTE | 2021-08-16 09:46 | Diagnostic Imaging Report ---
INDICATION: Ileus KUB 9:41 AM Comparison with previous day again shows gaseous distention of the GI tract. There are postsurgical changes in the lumbosacral spine with degenerative changes noted throughout the lumbar spine. IMPRESSION: Unremarkable bowel gas pattern although a mild ileus cannot be excluded. Dictated by: Dictated on workstation # [id number]
[2021-08-16] MEDS: DICLOFENAC 1% GEL 100 GM (VOLTAREN) TUBE TP SCH ×4 (09:49→21:13)
[2021-08-16] MEDS: FLUTICASONE NASAL SPRAY (FLONASE) 16 GM BTL NS SCH (09:49)
--- NOTE | 2021-08-16 12:01 | Physical Therapy Daily Note ---
PT Daily Note-Current Subjective Patient in recliner pre tx, agrees to PT, has 3/10 pain in back. Will be co- treating with OT due to poor patient mobility, strength, endurance, coordinate UE and LE during activity, safety and reduce risk of falls. Appearance Patient in recliner post tx with nurse call, phone, tray, all needs met. Mental Status Patient Orientation: Person, Place, Situation Attachments: Drains, Mccormick Catheter back brace Transfers SCALE: Activities may be completed with or without assistive devices. 0-Sxcigncztg-ihkaqcg completes the activity by him/herself with no assistance from a helper. 5-Set-up or Clean-up Assistance-helper sets up or cleans up; patient completes activity. [place] assists only prior to or following the activity. 4-Supervision or Touching Assistance-helper provides verbal cues and/or touching/steadying and/or contact guard assistance as patient completes activity. Assistance may be provided throughout the activity or intermittently. 3-Partial/Moderate Assistance-helper does LESS THAN HALF the effort. [place] lifts, holds or supports trunk or limbs, but provides less than half the effort. 2-Substantial/Maximal Assistance-helper does MORE THAN HALF the effort. [place] lifts or holds trunk or limbs and provides more than half the effort. 7-Hkyiteius-libymw does ALL the effort. Patient does none of the effort to complete the activity. Or, the assistance of 2 or more helpers is required for the patient to complete the activity. If activity was not attempted, code reason: 7-Patient Refused. 9-Not Applicable-not attempted and the patient did not perform the activity before the current illness, exacerbation or injury. 10-Not Attempted due to Environmental Limitations-(lack of equipment, weather restraints, etc.). 88-Not Attempted due to Medical Conditions or Safety Concerns. Sit to Stand (QC): 3 Chair/Raa-lv-Qtwhn Xfer(QC): 3 Patient stands from recliner with mod assist, ambulates to the restroom with 2 person guarding and WC follow as much as we can in the room. Patient is extremely unsteady, no knee buckling but it seems it could happen at any moment, get to restroom and patient turns to sit on shower bench and knees buckle and he has to be lowered down and backward about 5-6 inches to the shower bench. He can scoot back from there. Patient then turns the correct way on the shower bench, stands using the grab rails (min assist) and starts undressing with OT assist. Patient showers, has to stand a couple of times for cleaning (min assist), when done he dresses partway, stands and transfers to WC, is taken out of shower and then stands again to complete dressing, ADL's at sink, then is wheeled to recliner and transfers to recliner with mod assist. Gait Training Distance: 10' Walk 10 feet (QC): 2 Gait Assistive Device: FWW very unsteady, leans to the left, knee buckling Treatments PT performed transfers, ambulation, standing and positioning and safety during bathing and dressing and ADL's, OT performed bathing, dressing, ADL's, assisted with transfers and ambulation. Assessment Current Status: Poor Progress I cannot emphasize how unsteady patient is during ambulation. It should not be attempted by nursing and should only be done with physical therapy. PT Short Term Goals Short Term Goals Time Frame: Aug 22, 2021 Roll Left & Right: 4 Sit to lyin Lying to sitting on side of be: 3 Sit to stand: 4 Chair/pav-jj-pabwg transfer: 4 Walk 10 feet: 4 Walk 50 feet with two turns: 4 PT Mcc Goals Mcc Goals PT Retail Support Manager Goals Time Frame: Sep 05, 2021 Roll Left & Right (QC): 4 Sit to Lying (QC): 4 Lying-Sitting on Side/Bed(QC): 4 Sit to Stand (QC): 4 Chair/Ucw-nj-Fdici Xfer(QC): 4 Toilet Transfer (QC): 4 Car Transfer (QC): 4 Does the Patient Walk: Yes Walk 10 feet (QC): 4 Walk 50ft with 2 Turns (QC): 4 Walk 150 ft (QC): 4 Walking 10ft on Uneven Surface: 4 1 Step (curb) (QC): 4 4 Steps (QC): 4 12 Steps (QC): 88 Picking up an Object (QC): 88 Wheel 50 feet with 2 turns (QC: 9 Wheel 150 feet: 9 PT Plan Problem List Problem List: Activity Tolerance, Functional Strength, Safety, Balance, Gait, Transfer, Bed Mobility, ROM Treatment/Plan Treatment Plan: Continue Plan of Care Treatment Plan: Bed Mobility, Education, Functional Activity Itzel, Functional Strength, Group Therapy, Gait, Safety, Therapeutic Exercise, Transfers Treatment Duration: Sep 05, 2021 Frequency: At least 5 of 7 days/Wk (IRF) Estimated Hrs Per Day: 1.5 hours per day Patient and/or Family Agrees t: Yes Safety Risks/Education Patient Education: Gait Training, Transfer Techniques, Reviewed Precautions, Correct Positioning, Reviewed Don/Doff Brace, Safety Issues Teaching Recipient: Patient Teaching Methods: Demonstration, Discussion Response to Teaching: Reinforcement Needed Time/GCodes Time In: 1100 Time Out: 1200 Total Billed Treatment Time: 60 Total Billed Treatment 1 visit FA 60' co-treated for 60' ANITRA MORALES PT Aug 16, 2021 12:00
--- NOTE | 2021-08-16 12:05 | Occupational Ther Daily Note ---
OT Current Status-Daily Note Subjective Pt was seated in chair upon OT/PT arrival. Pt stated he was ready for a shower. Mental Status/Objective Patient Orientation: Person, Situation Attachments: Drains, Mccormick Catheter, IV, Oxygen O2 - 2L w/ nasal canula at rest and during tx session. ADL-Treatment Therapy Code Descriptions/Definitions Functional [place] Measure: 0=Not Assessed/NA 4=Minimal Assistance 1=Total Assistance 5=Supervision or Setup 2=Maximal Assistance 6=Modified [place] 3=Moderate Assistance 7=Complete IndependenceSCALE: Activities may be completed with or without assistive devices. 8-Ecdzynxfto-tfxzqht completes the activity by him/herself with no assistance from a helper. 5-Set-up or Clean-up Assistance-helper sets up or cleans up; patient completes activity. [place] assists only prior to or following the activity. 4-Supervision or Touching Assistance-helper provides verbal cues and/or touching/steadying and/or contact guard assistance as patient completes activity. Assistance may be provided throughout the activity or intermittently. 3-Partial/Moderate Assistance-helper does LESS THAN HALF the effort. [place] lifts, holds or supports trunk or limbs, but provides less than half the effort. 2-Substantial/Maximal Assistance-helper does MORE THAN HALF the effort. [place] lifts or holds trunk or limbs and provides more than half the effort. 0-Nobqdusjm-sbqqsj does ALL the effort. Patient does none of the effort to complete the activity. Or, the assistance of 2 or more helpers is required for the patient to complete the activity. If activity was not attempted, code reason: 7-Patient Refused. 9-Not Applicable-not attempted and the patient did not perform the activity before the current illness, exacerbation or injury. 10-Not Attempted due to Environmental Limitations-(lack of equipment, weather restraints, etc.). 88-Not Attempted due to Medical Conditions or Safety Concerns. Shower/Bathe Self (QC): 3 (Pt was Mod assist when standing to wash backside and clean eros-area, long handled sponge utilized during task. ) Upper Body Dressing (QC): 3 (Pt required touch assist to pull backside of shirt down. Total assist donning/doffing back brace.) Lower Body Dressing (QC): 1 (total assistance required) On/Off Footwear: 1 (total assistance required) Other Treatment OT/PT cotreat due to skill of 2 clinicians required which a cardiac rehabilitation specialist could not perform in order to coordinate Ue/LEs, decrease fall risk, and due to pt's limitations in pain, mobility, transfers, and activity tolerance. OT focused on UE placement, ADLs, and cues for sequencing and safety. PT focused on LE placement, transfers, mobility, and standing tolerance. Pt was seated in chair upon OT/PT arrival. Pt stated he was ready for a shower. Pt stood from chair (mod A), then ambulated to restroom with assist x2 and w/c follow. Pt transferre to FL, requireing assistance x2 to lower safely to FL due to knees buckling and assistance 5-6 inches back to shower chair. Pt performed doffing clothing, shower, and donning clothing, see above QC's. During shower, pt able to stand with min A using GBs. Pt transferred from shower bench to w/c. pt combed/dried hair, min A with back of head.. Pt transferred from w/c to recliner. Post tx session, pt was seated in chair, call light within reach, all needs met. Education OT Patient Education: Correct positioning, Energy conservation, Modified ADL techniques, Progress toward Goal/Update tx plan, Purpose of tx/functional activities, Reviewed precautions, Safety issues, Transfer techniques, Use of adapted equipment, W/C management Teaching Recipient: Patient Teaching Methods: Demonstration, Discussion Response to Teaching: Verbalize Understanding, Return Demonstration OT Short Term Goals Short Term Goals Time Frame: Aug 29, 2021 Eatin Oral hygiene: 5 Toileting hygiene: 3 (min) Shower/bathe self: 3 (min) Upper body dressin Lower body dressin Putting on/taking off footwear: 3 OT Baked Goods Stock Clerk Goals Baked Goods Stock Clerk Goals Time Frame: Sep 05, 2021 Eating (QC): 6 Oral Hygiene (QC): 6 Toileting Hygiene (QC): 6 Shower/Bathe Self (QC): 4 Upper Body Dressing (QC): 5 Lower Body Dressing (QC): 4 On/Off Footwear (QC): 5 1=Demonstrate adherence to instructed precautions during ADL tasks. 2=Patient will verbalize/demonstrate understanding of assistive devices/modifications for ADL. 3=Patient will improve strength/tolerance for activity to enable patient to perform ADL's. OT Education/Plan Problem List/Assessment Assessment: Decreased Activ Tolerance, Decreased Safety Aware, Decreased UE Strength, Dependent Transfers, Impaired Bed Mobility, Impaired Coordination, Impaired Funct Balance, Impaired I ADL's, Impaired Self-Care Skills Discharge Recommendations Plan/Recommendations: Continue POC Treatment Plan/Plan of Care Patient would benefit from OT for education, treatment and training to promote independence in ADL's, mobility, safety and/or upper extremity function for ADL's. Plan of Care: ADL Retraining, Functional Mobility, Group Exercise/Act as Ind, Orthotic Fitting/Training, UE Funct Exercise/Act, W/C Management Training Treatment Duration: Sep 05, 2021 Frequency: At least 5 of 7 days/Wk (IRF) Estimated Hrs Per Day: 1.5 hours per day Agreement: Yes Rehab Potential: Fair Time/GCodes Start Time: 11:00 Stop Time: 12:00 Total Time Billed (hr/min): 60 Billed Treatment Time 1, ADL 4 ELENA GALLARDO OT Aug 16, 2021 12:05
--- NOTE | 2021-08-16 12:10 | Progress Note - Cardiology ---
Cardiology SOAP Progress Note Subjective: Sitting up in recliner at the bedside Continued c/o nausea No c/o CP or SOB or palpitations Objective: I&O/Vital Signs 08/16/21 07:49 Temp 37.0 Pulse 74 Resp 24 B/P (MAP) 157/67 (97) Pulse Ox 96 O2 Delivery Nasal Cannula O2 Flow Rate 1.00 Constitutional: AAO x 3, well-developed, well-nourished Respiratory: No accessory muscle use, No respiratory distress; chest expansion is symmetric, chest is bilaterally symmetric, lungs clear to auscultation Cardiovascular: regular rate-rhythm, S1 and S2 Gastrointestional: No tender; soft, hernia (umbilical), audible bowel sounds Genital/Rectal: other (urinary catheter in place) Extremities: no lower extremity edema bilateral Neurologic/Psychiatric: grossly intact (moves all extremities) Skin: jaundice Results/Procedures: Labs Laboratory Tests 08/16/21 05:40: White Blood Count 4.8, Red Blood Count 2.78L, Hemoglobin 8.4L, Hematocrit 25L, Mean Corpuscular Volume 90, Mean Corpuscular Hemoglobin 30, Mean Corpuscular Hemoglobin Concent 34, Red Cell Distribution Width 13.5, Platelet Count 94L, Mean Platelet Volume 8.6L, Immature Granulocyte % (Auto) 1, Neutrophils (%) (Auto) 75, Lymphocytes (%) (Auto) 9L, Monocytes (%) (Auto) 15H, Eosinophils (%) (Auto) 0, Basophils (%) (Auto) 0, Neutrophils # (Auto) 3.7, Lymphocytes # (Auto) 0.4L, Monocytes # (Auto) 0.7, Eosinophils # (Auto) 0.0, Basophils # (Auto) 0.0, Immature Granulocyte # (Auto) 0.0, Percent Immature Platelet Fraction 1.4, Sodium Level 128L, Potassium Level 4.0, Chloride Level 98, Carbon Dioxide Level 23, Anion Gap 7, Blood Urea Nitrogen 15, Creatinine 0.64, Estimat Glomerular Filtration Rate 120, BUN/Creatinine Ratio 23, Glucose Level 109H, Calcium Level 7.8L, Corrected Calcium 8.4L, Total Bilirubin 1.3H, Aspartate Amino Transf (AST/SGOT) 30, Alanine Aminotransferase (ALT/SGPT) 21, Alkaline Phosphatase 43, Total Protein 5.4L, Albumin 3.2 Laboratory Tests 08/16/21 05:40 Procedures NAME: [facility] REC#: [id number] PT STATUS: ADM IN : 1940 PHYSICIAN: WARREN FARAH DO ADMIT DATE: 08/15/21/[facility] Signed Date of Exam:08/16/21 ABDOMEN/KUB 1VIEW INDICATION: Ileus KUB 9:41 AM Comparison with previous day again shows gaseous distention of the GI tract. There are postsurgical changes in the lumbosacral spine with degenerative changes noted throughout the lumbar spine. IMPRESSION: Unremarkable bowel gas pattern although a mild ileus cannot be excluded. Dictated by: Dictated on workstation # [id number] Dict: 08/16/21 0943 Trans: 08/16/21 1016 CVB [id number] Interpreted by: ZHANE JUNG MD Electronically signed by: ZHANE JUNG MD 08/16/21 1016 A/P: Assessment: Recent back surgery at [facility] in [place], [place] by Dr. Canada on 08-13-21 CAD - H/O coronary stent placement x1 in Oct 2011 at [facility] - H/O CABG at [facility] in Dec 2011 - exact details unknown H/O PAF - reports one episode in 2019 - maintained on Amiodarone and ASA - reports no reoccurrence - managed by Dr. Crum Carotid dz - reports 40% blockage - unsure of exact details HTN - controlled HLD - statin tx - followed by Dr. Guzman Oncology - Liver cancer for which he is receiving immunosuppressive tx - dx in Dec 2020 GERD Nausea - undetermined etiology - management per medical services Plan: Possible developing ileus - management per Dr. Farah Continue current medication regimen Request records from Dr. Crum at [facility] - have not received Management of nausea per medical services Monitor lab from time to time RACHEL DAY Aug 16, 2021 12:10
--- NOTE | 2021-08-16 12:50 | IRF PAI BIMS ---
BIMS BIMS IRF LORA BIMS: IRF LORA BIMS Response (Comments) Value Expression of Ideas and Wants (Verbal/Non Verbal) Without Difficulty Understanding Verbal Content Usually Understands Should Brief Interview for Mental Status be Conducted Yes 1 Repitition of Three Words Two 2 Year Correct (score 3) Month Accurate Within 5 Days (score 2) Day Incorrect or No Answer (score 0) Recalls Socks Yes, No Cue Required 2 Recalls Blue Yes, After Cueing (Color) 1 Recalls Bed No, Could Not Recall 0 Total 6 Notes: 08/23 total score (added in scores for year/month/day) ELENA GALLARDO OT Aug 16, 2021 12:50
--- NOTE | 2021-08-16 13:23 | Occupational Ther Daily Note ---
OT Current Status-Daily Note Subjective Pt was seated in chair upon OT arrival. Pt was in the room during tx session. Pt agreed to tx session. Mental Status/Objective Patient Orientation: Person, Place, Situation Attachments: Mccormick Catheter, IV, Oxygen O2 - 2L w/ nasal canula at rest and during tx session. ADL-Treatment Therapy Code Descriptions/Definitions Functional [place] Measure: 0=Not Assessed/NA 4=Minimal Assistance 1=Total Assistance 5=Supervision or Setup 2=Maximal Assistance 6=Modified [place] 3=Moderate Assistance 7=Complete IndependenceSCALE: Activities may be completed with or without assistive devices. 5-Ahdyycgfyg-emhtbfn completes the activity by him/herself with no assistance from a helper. 5-Set-up or Clean-up Assistance-helper sets up or cleans up; patient completes activity. [place] assists only prior to or following the activity. 4-Supervision or Touching Assistance-helper provides verbal cues and/or touching/steadying and/or contact guard assistance as patient completes activity. Assistance may be provided throughout the activity or intermittently. 3-Partial/Moderate Assistance-helper does LESS THAN HALF the effort. [place] lifts, holds or supports trunk or limbs, but provides less than half the effort. 2-Substantial/Maximal Assistance-helper does MORE THAN HALF the effort. [place] lifts or holds trunk or limbs and provides more than half the effort. 0-Niwivqstc-lqrqhx does ALL the effort. Patient does none of the effort to complete the activity. Or, the assistance of 2 or more helpers is required for the patient to complete the activity. If activity was not attempted, code reason: 7-Patient Refused. 9-Not Applicable-not attempted and the patient did not perform the activity before the current illness, exacerbation or injury. 10-Not Attempted due to Environmental Limitations-(lack of equipment, weather restraints, etc.). 88-Not Attempted due to Medical Conditions or Safety Concerns. Other Treatment Pt was seated in chair upon OT arrival. Pt was in the room during tx session. Pt agreed to tx session. Pt participated while seated in card activity utilizing bedside tray w/ 1lb weighted wrist weights on BUE. Pt had to organize cards by suit then by face, switching deck of cards in hands, to support FM coordination, cognition, and finger/hand manipulation for ADLs. OT provided skilled demonstration, VC, and touch assist to switch cards into opposite hand. Pt then participated while seated in BUE exercises, w/ 1lb weighted wrist weights x 12 reps in the following ex: elbow extension, elbow flexion, shoulder horizontal abduction, OT had to encourage pt to stay on task to complete reps. Post tx session, pt was seated in chair, call light within reach, and all needs met. Education OT Patient Education: Correct positioning, Progress toward Goal/Update tx plan, Purpose of tx/functional activities Teaching Recipient: Patient Teaching Methods: Demonstration, Discussion Response to Teaching: Verbalize Understanding, Return Demonstration OT Short Term Goals Short Term Goals Time Frame: Aug 29, 2021 Eatin Oral hygiene: 5 Toileting hygiene: 3 (min) Shower/bathe self: 3 (min) Upper body dressin Lower body dressin Putting on/taking off footwear: 3 OT Inbound Sales Representative Goals Assisted Goals Time Frame: Sep 05, 2021 Eating (QC): 6 Oral Hygiene (QC): 6 Toileting Hygiene (QC): 6 Shower/Bathe Self (QC): 4 Upper Body Dressing (QC): 5 Lower Body Dressing (QC): 4 On/Off Footwear (QC): 5 1=Demonstrate adherence to instructed precautions during ADL tasks. 2=Patient will verbalize/demonstrate understanding of assistive devices/bonny fications for ADL. 3=Patient will improve strength/tolerance for activity to enable patient to perform ADL's. OT Education/Plan Problem List/Assessment Assessment: Decreased Activ Tolerance, Decreased Safety Aware, Decreased UE Strength, Dependent Transfers, Impaired Cognition, Impaired Coordination, Impaired Funct Balance, Impaired I ADL's, Impaired Self-Care Skills, Restricted Funct UE ROM Discharge Recommendations Plan/Recommendations: Continue POC Treatment Plan/Plan of Care Patient would benefit from OT for education, treatment and training to promote independence in ADL's, mobility, safety and/or upper extremity function for ADL's. Plan of Care: ADL Retraining, Functional Mobility, Group Exercise/Act as Ind, Orthotic Fitting/Training, UE Funct Exercise/Act, W/C Management Training Treatment Duration: Sep 05, 2021 Frequency: At least 5 of 7 days/Wk (IRF) Estimated Hrs Per Day: 1.5 hours per day Agreement: Yes Rehab Potential: Fair Time/GCodes Start Time: 12:45 Stop Time: 13:15 Total Time Billed (hr/min): 30 Billed Treatment Time 1 Visit, FA (20'), EX (10') ELENA GALLARDO OT Aug 16, 2021 13:23
--- NOTE | 2021-08-16 15:13 | Physical Therapy Daily Note ---
PT Daily Note-Current Subjective Patient in recliner pre tx, agrees to PT, has unrated low back pain. Appearance Patient in bed post tx with nurse call, phone, tray, all needs met. Mental Status Patient Orientation: Person, Place, Situation Attachments: Oxygen, Drains back brace Transfers SCALE: Activities may be completed with or without assistive devices. 1-Tulirulowd-zzuoiku completes the activity by him/herself with no assistance from a helper. 5-Set-up or Clean-up Assistance-helper sets up or cleans up; patient completes activity. [place] assists only prior to or following the activity. 4-Supervision or Touching Assistance-helper provides verbal cues and/or touching/steadying and/or contact guard assistance as patient completes act ivity. Assistance may be provided throughout the activity or intermittently. 3-Partial/Moderate Assistance-helper does LESS THAN HALF the effort. [place] lifts, holds or supports trunk or limbs, but provides less than half the effort. 2-Substantial/Maximal Assistance-helper does MORE THAN HALF the effort. [place] lifts or holds trunk or limbs and provides more than half the effort. 6-Lzkaruewp-bqitqq does ALL the effort. Patient does none of the effort to complete the activity. Or, the assistance of 2 or more helpers is required for the patient to complete the activity. If activity was not attempted, code reason: 7-Patient Refused. 9-Not Applicable-not attempted and the patient did not perform the activity before the current illness, exacerbation or injury. 10-Not Attempted due to Environmental Limitations-(lack of equipment, weather restraints, etc.). 88-Not Attempted due to Medical Conditions or Safety Concerns. Roll Left & Right (QC): 3 Sit to Lying (QC): 1 Sit to Stand (QC): 3 Chair/Nib-le-Hrsix Xfer(QC): 3 Initially patient had a lot of difficulty standing from the recliner, almost max assist to stand and he didn't seem to be able to straighten his knees and was extremely unsteady, this improved somewhat during the treatment. Gait Training Distance: 6'x3 Gait Persons Needed: 1 Gait Assistive Device: Parallel Bars min assist for sit to stand, he was able to take steps himself but very slow and antalgic, he was ready to sit after ambulating just 6' each time Exercises Seated Therapy Exercises: Ankle pumps, Long arc quads, Hip flexion, Hip abd/add (with ball and RTB) Treatments bed mobility and transfers, ambulation, WC mobility, LE ROM Assessment Current Status: Poor Progress Patient seems to be declining with sit <-> stand PT Short Term Goals Short Term Goals Time Frame: Aug 22, 2021 Roll Left & Right: 4 Sit to lyin Lying to sitting on side of be: 3 Sit to stand: 4 Chair/tju-ux-jgyso transfer: 4 Walk 10 feet: 4 Walk 50 feet with two turns: 4 PT Route Service Representative Goals Intermediate Goals PT Route Service Representative Goals Time Frame: Sep 05, 2021 Roll Left & Right (QC): 4 Sit to Lying (QC): 4 Lying-Sitting on Side/Bed(QC): 4 Sit to Stand (QC): 4 Chair/Krj-ll-Qknxu Xfer(QC): 4 Toilet Transfer (QC): 4 Car Transfer (QC): 4 Does the Patient Walk: Yes Walk 10 feet (QC): 4 Walk 50ft with 2 Turns (QC): 4 Walk 150 ft (QC): 4 Walking 10ft on Uneven Surface: 4 1 Step (curb) (QC): 4 4 Steps (QC): 4 12 Steps (QC): 88 Picking up an Object (QC): 88 Wheel 50 feet with 2 turns (QC: 9 Wheel 150 feet: 9 PT Plan Problem List Problem List: Activity Tolerance, Functional Strength, Safety, Balance, Gait, Transfer, Bed Mobility, ROM Treatment/Plan Treatment Plan: Continue Plan of Care Treatment Plan: Bed Mobility, Education, Functional Activity Itzel, Functional Strength, Group Therapy, Gait, Safety, Therapeutic Exercise, Transfers Treatment Duration: Sep 05, 2021 Frequency: At least 5 of 7 days/Wk (IRF) Estimated Hrs Per Day: 1.5 hours per day Patient and/or Family Agrees t: Yes Safety Risks/Education Patient Education: Gait Training, Transfer Techniques, Reviewed Precautions, Correct Positioning, W/C Management, Reviewed Don/Doff Brace, Safety Issues Teaching Recipient: Patient Teaching Methods: Demonstration, Discussion Response to Teaching: Reinforcement Needed Time/GCodes Time In: 1430 Time Out: 1500 Total Billed Treatment Time: 30 Total Billed Treatment 1 visit EX 10' FA 20' ANITRA MORALES PT Aug 16, 2021 15:13
--- NOTE | 2021-08-16 16:22 | Progress Note - Cardiology ---
Cardiology SOAP Progress Note Subjective: No cp or palp or syncope or shortness of breath No n/v/d Gen malaise and weakness present Objective: I&O/Vital Signs 08/16/21 08/16/21 08/16/21 08/16/21 07:49 09:07 13:27 15:22 Temp 37.0 Pulse 74 78 Resp 24 20 B/P (MAP) 157/67 (97) Pulse Ox 96 98 98 O2 Delivery Nasal Cannula Nasal Cannula Nasal Cannula Nasal Cannula O2 Flow Rate 1.00 2.00 2.00 2.00 Constitutional: AAO x 3, well-developed, well-nourished Respiratory: No accessory muscle use, No respiratory distress; chest expansion is symmetric, chest is bilaterally symmetric, lungs clear to auscultation Cardiovascular: regular rate-rhythm, S1 and S2 Gastrointestional: No tender; soft, hernia (umbilical), audible bowel sounds Genital/Rectal: other (urinary catheter in place) Extremities: no lower extremity edema bilateral Neurologic/Psychiatric: grossly intact (moves all extremities) Skin: jaundice Results/Procedures: Labs Laboratory Tests 08/16/21 05:40: White Blood Count 4.8, Red Blood Count 2.78L, Hemoglobin 8.4L, Hematocrit 25L, Mean Corpuscular Volume 90, Mean Corpuscular Hemoglobin 30, Mean Corpuscular Hemoglobin Concent 34, Red Cell Distribution Width 13.5, Platelet Count 94L, Mean Platelet Volume 8.6L, Immature Granulocyte % (Auto) 1, Neutrophils (%) (Auto) 75, Lymphocytes (%) (Auto) 9L, Monocytes (%) (Auto) 15H, Eosinophils (%) (Auto) 0, Basophils (%) (Auto) 0, Neutrophils # (Auto) 3.7, Lymphocytes # (Auto) 0.4L, Monocytes # (Auto) 0.7, Eosinophils # (Auto) 0.0, Basophils # (Auto) 0.0, Immature Granulocyte # (Auto) 0.0, Percent Immature Platelet Fraction 1.4, Sodium Level 128L, Potassium Level 4.0, Chloride Level 98, Carbon Dioxide Level 23, Anion Gap 7, Blood Urea Nitrogen 15, Creatinine 0.64, Estimat Glomerular Filtration Rate 120, BUN/Creatinine Ratio 23, Glucose Level 109H, Calcium Level 7.8L, Corrected Calcium 8.4L, Total Bilirubin 1.3H, Aspartate Amino Transf (AST/SGOT) 30, Alanine Aminotransferase (ALT/SGPT) 21, Alkaline Phosphatase 43, Total Protein 5.4L, Albumin 3.2 Laboratory Tests 08/16/21 05:40 A/P: Assessment: Recent back surgery at [facility] in [place], [place] by Dr. Canada on 08-13-21 CAD - H/O coronary stent placement x1 in Oct [address] [facility] - H/O CABG at [facility] in Dec 2011 - exact details unknown H/O PAF - reports one episode in 2019 - maintained on Amiodarone and ASA - reports no reoccurrence - managed by Dr. Crum Carotid dz - reports 40% blockage - unsure of exact details HTN - controlled HLD - statin tx - followed by Dr. Guzman Oncology - Liver cancer for which he is receiving immunosuppressive tx - dx in Dec 2020 GERD Nausea - undetermined etiology - management per medical services Plan: Possible developing ileus - management per Dr. Arreola Continue current medication regimen Request records from Dr. Crum at [facility] - have not received Management of nausea per medical services Monitor lab from time to time SADIA CORDERO MD FACP FAC CCDS Aug 16, 2021 16:22
[2021-08-16 19:54] VITALS: BP 146/65
[2021-08-16] MEDS: doxAzosin 4 MG (CARDURA) TAB PO SCH (21:11)
[2021-08-16] MEDS: FINASTERIDE (PROSCAR) 5 MG TAB PO SCH (21:12)
[2021-08-16] MEDS: ROSUVASTATIN 10 MG (CRESTOR) TABLET PO SCH (21:12)
[2021-08-17] MEDS: NS IV 1000 ML 1,000 ML IV SCH (03:20)
[2021-08-17] MEDS: METOCLOPRAMIDE INJ 10 MG/2 ML (REGLAN) IVP SCH ×4 (04:51→21:13)
--- NOTE | 2021-08-17 05:56 | PM&R Progress Note ---
Subjective HPI/CC On Admission Date Seen by Provider: Aug 17, 2021 Time Seen by Provider: 05:34 Subjective/Events-last exam 08/17/2021: Patient dramatically improved Bowel movement occurred No distention of abdomen Advancing diet Hep locking IV fluid Discontinue the catheter 08/16/2021: Patient settling in Still nauseated Dr. Tse will be consulted Abdominal x-ray reviewed Hyponatremia noted at 128 Hemoglobin 8.4 Review of Systems General: Fatigue, Malaise Musculoskeletal: back pain Neurological: Weakness, Numbness Objective Exam Vital Signs Vital Signs Date Time Temp Pulse Resp B/P (MAP) Pulse Ox O2 Delivery O2 Flow Rate FiO2 08/17/21 09:00 Nasal Cannula 1.00 08/17/21 07:30 36.7 71 20 152/72 (98) 97 Capillary Refill : General Appearance: No Apparent Distress, WD/WN, Chronically ill, Obese, Other (pale) HEENT: PERRL/EOMI, Normal ENT Inspection, Pharynx Normal Neck: Full Range of Motion, Normal Inspection, Non Tender, Supple, Carotid Bruit Respiratory: Chest Non Tender, Lungs Clear, No Accessory Muscle Use, No Respiratory Distress, Decreased Breath Sounds Cardiovascular: Regular Rate, Rhythm, No Edema, No Gallop, No JVD, No Murmur, Normal Peripheral Pulses Gastrointestinal: Normal Bowel Sounds, No Organomegaly, No Pulsatile Mass, Non Tender, Soft Back: Normal Inspection, No CVA Tenderness, No Vertebral Tenderness Extremity: Normal Capillary Refill, Normal Inspection, Normal Range of Motion (limited lower extremities), Non Tender, No Calf Tenderness, No Pedal Edema Neurologic/Psychiatric: Alert, Oriented x3, No Motor/Sensory Deficits, grape cutter II- XII Norm as Tested, Abnormal Gait, Depressed Affect, Motor Weakness (lower legs) Skin: Normal Color, Warm/Dry Lymphatic: No Adenopathy Results/Procedures Lab Patient resulted labs reviewed. FIM Transfers Therapy Code Descriptions/Definitions Functional [place] Measure: 0=Not Assessed/NA 4=Minimal Assistance 1=Total Assistance 5=Supervision or Setup 2=Maximal Assistance 6=Modified [place] 3=Moderate Assistance 7=Complete IndependenceSCALE: Activities may be completed with or without assistive devices. 2-Tzpqguoeke-hejmkjo completes the activity by him/herself with no assistance from a helper. 5-Set-up or Clean-up Assistance-helper sets up or cleans up; patient completes activity. [place] assists only prior to or following the activity. 4-Supervision or Touching Assistance-helper provides verbal cues and/or touching/steadying and/or contact guard assistance as patient completes activity. Assistance may be provided throughout the activity or intermittently. 3-Partial/Moderate Assistance-helper does LESS THAN HALF the effort. [place] lifts, holds or supports trunk or limbs, but provides less than half the effort. 2-Substantial/Maximal Assistance-helper does MORE THAN HALF the effort. [place] lifts or holds trunk or limbs and provides more than half the effort. 4-Acqucfcjy-djezrd does ALL the effort. Patient does none of the effort to co mplete the activity. Or, the assistance of 2 or more helpers is required for the patient to complete the activity. If activity was not attempted, code reason: 7-Patient Refused. 9-Not Applicable-not attempted and the patient did not perform the activity before the current illness, exacerbation or injury. 10-Not Attempted due to Environmental Limitations-(lack of equipment, weather restraints, etc.). 88-Not Attempted due to Medical Conditions or Safety Concerns. Roll Left to Right (QC): 3 Sit to Lying (QC): 1 Sit to Stand (QC): 3 Chair/Fmm-ys-Xeocc Xfer(QC): 3 Car Transfer (QC): 88 Gait Training Does the Patient Walk?: Yes Distance: 6'x3 Walk 10 feet (QC): 2 Walk 50 ft with 2 Turns(QC): 88 Walk 150 ft (QC): 88 Walking 10ft/uneven surface-QC: 88 Gait Persons Needed: 1 Gait Assistive Device: Parallel Bars Wheelchair Training Does the Pt Use a Wheelchair?: Yes Distance: 100'x2 Wheel 50 ft with 2 turns (QC): 3 Wheel 150 ft (QC): 88 Type of Wheelchair: Manual Stair Training 1 Step (curb) (QC): 88 4 Steps (QC): 88 12 Steps (QC): 88 Balance Picking up an Object (QC): 88 ADL-Treatment Eating (QC): 6 Oral Hygiene (QC): 3 Shower/Bathe Self (QC): 3 (Pt was Mod assist when standing to wash backside and clean eros-area, long handled sponge utilized during task. ) Upper Body Dressing (QC): 3 (Pt required touch assist to pull backside of shirt down. Total assist donning/doffing back brace.) Lower Body Dressing (QC): 1 (total assistance required) On/Off Footwear (QC): 1 (total assistance required) Toileting Hygiene (QC): 2 Assessment/Plan Assessment and Plan Assess & Plan/Chief Complaint Assessment: Status post spinal stenosis surgery by Dr. 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 Ramos Severe nausea and vomiting postoperatively Mccormick cath in place Urinary retention Atrial fibrillation CAD Plan: Inpatient rehab protocol Supportive care Gentle IV fluid 08/16/2021: Supportive care Gentle IV fluid Pain control 08/17/2021: Supportive care DC cath Hep-Lock IV fluid (1) Spinal stenosis (2) Hepatocellular carcinoma (3) Encounter for monitoring immunomodulating therapy (4) Nausea and vomiting (5) Urinary retention WARREN FARAH DO Aug 17, 2021 05:56
--- NOTE | 2021-08-17 05:57 | Individualized Plan of Care ---
Individualized Plan of Care Rehab Nursing IPOC Order Admission Date Aug 15, 2021 at 14:30 Current Orders Orders Admission Order(Inpt,Obs,Sdc) (08/15/21 14:16) Vital Signs: Per Unit Policy ( ,,00 (08/15/21 14:16) Jaskaran Hendricks (08/15/21 14:16) Sequential Compression Device .admit (08/15/21 14:16) Bread Slicer Machine-Inpt Rehab Con (08/15/21 14:16) Rehab Nursing Orders-Ipoc (08/15/21 14:16) Physical Therapy Rehab Orders (08/15/21 14:16) Occupational Therapy Rehab Ord (08/15/21 14:16) Speech Therapy Rehab Orders (08/15/21 14:16) Cbc With Automated Diff (08/16/21 06:00) Comprehensive Metabolic Panel (08/16/21 06:00) Precautions (Aru) (08/15/21 14:16) Rehab-Intensity Of Therapy (08/15/21 14:16) Initiate Admission Nursing Pro .admission (08/15/21 14:16) Alprazolam Tablet (Xanax Tablet) (08/15/21 14:30) Calcium Carbonate Chew Tablet (Antacid C (08/15/21 14:30) Diphenhydramine Tablet (Benadryl Tablet) (08/15/21 14:30) Docusate Sodium Capsule (Colace Capsule) (08/15/21 21:00) Docusate Sodium Capsule (Colace Capsule) (08/15/21 14:30) Bisacodyl Suppository (Dulcolax Supposit (08/15/21 14:30) Lactulose Oral Solution (Enulose Oral So (08/15/21 14:30) Na Phos/Na Biphos Enema (Fleet Enema Evert (08/15/21 14:30) Guaifenesin/Codeine Syrup (Robitussin Ac (08/15/21 14:30) Loperamide Tablet (Imodium Tablet) (08/15/21 14:30) Melatonin Tablet (Melatonin Tablet) (08/15/21 14:30) Polyethylene Glycol Powder Pkt (Miralax (08/15/21 21:00) Ondansetron Oral Dissolve Tab (Zofran (08/15/21 14:30) Senna S Tablet (Senokot S Tablet) (08/15/21 21:00) Code/Resuscitation (08/15/21 14:16) Initiate Admission Nursing Pro .admission (08/15/21 14:16) Admission Arrival Bed Request (08/15/21 14:33) Nursing Communication (Order) (08/15/21 14:41) Scopolamine Patch (Transderm-Scop Patch) (08/15/21 15:30) Amiodarone Tablet (Cordarone Tablet) (08/16/21 09:00) Amlodipine Tablet (Norvasc Tablet) (08/16/21 09:00) Aspirin Enteric Coated Tablet (Ecotrin T (08/16/21 09:00) Bisacodyl Tablet (Dulcolax Tablet) (08/15/21 15:00) Bisacodyl Suppository (Dulcolax Supposit (08/15/21 15:00) Diclofenac 1% Gel (Voltaren 1% Gel) (08/15/21 17:00) Finasteride Tablet (Proscar Tablet) (08/15/21 21:00) Gabapentin Capsule/Tablet (Neurontin Cap (08/15/21 21:00) Losartan Tablet (Cozaar Tablet) (08/16/21 09:00) Magnesium Hydroxide Oral Susp (Mom Oral (08/15/21 15:00) Ondansetron Oral Dissolve Tab (Zofran (08/15/21 15:00) Pantoprazole Tablet (Protonix Tablet) (08/15/21 15:00) Polyethylene Glycol Powder Pkt (Miralax (08/15/21 15:00) Rosuvastatin Tablet (Crestor Tablet) (08/15/21 21:00) Trazodone Tablet (Desyrel Tablet) (08/15/21 15:00) (Nf) Acetaminophen (Tylenol) (08/15/21 15:00) (Nf) Doxazosin Mesylate (08/15/21 21:00) (Nf) Fluticasone Propionate (Flonase All (08/16/21 09:00) (Nf) Oxycodone Hcl (Roxicodone) (08/15/21 15:00) Clear Liquid (08/15/21 Lunch) Metoclopramide Injection (Reglan Injecti (08/15/21 16:00) Promethazine Injection (Phenergan Injec (08/15/21 15:00) Ondansetron Injection (Zofran Injectio (08/15/21 15:00) Ns Iv 1000 Ml (Sodium Chloride 0.9%) (08/15/21 15:00) Ekg Tracing (08/15/21 14:54) Acute Abd Series (08/15/21 14:54) Consult Cardiology (08/15/21 14:54) Morphine Injection (Morphine Injection (08/15/21 15:00) Morphine Injection (Morphine Injection (08/15/21 15:30) Patch Removal (Patch Removal) (08/18/21 15:30) Acetaminophen Tablet/Caplet (Tylenol T (08/15/21 15:30) Doxazosin Tablet (Cardura Tablet) (08/15/21 21:00) Oxycodone Immediate Rel Tablet (Oxyir Ta (08/15/21 15:30) Fluticasone Nasal Alba (Flonase Nasal S (08/16/21 09:00) Patient Visit (08/15/21 ) Pt Eval Moderate Complexity (08/15/21 ) Functional Activities, Ea 15 (08/15/21 ) Flu Quad High Dose [id number] (Fluzone Hi (08/15/21 17:15) Oxycodone Immediate Rel Tablet (Oxyir Ta (08/16/21 09:30) Consult General Surgery (08/16/21 05:39) Abdomen/Kub 1view (08/16/21 07:00) Patient Visit (08/16/21 ) Functional Activities, Ea 15 (08/16/21 ) Exercise Therap, Ea 15 Min (08/16/21 ) Incentive Spirometry (Nursing) Q2H (08/16/21 18:50) Incentive Spirometry Initial (08/16/21 18:50) Incentive Spirometry (Nursing) Q2H (08/16/21 18:50) Sodium Chloride Flush (Catheter Flush Sy (08/17/21 14:00) Dys1 Pureed (08/17/21 Lunch) Patient Visit (08/17/21 ) Gait Training, Ea 15 Min (08/17/21 ) Functional Activities, Ea 15 (08/17/21 ) Catheter(Urinary) Discontinue (08/17/21 12:43) Rehab Nursing Orders: Ongoing Assess. of Cognitive Status, Ongoing Assess. of Function Status, Bladder Management, Bladder Scan, Bladder Training, Bowel Management, Bowel Training, Disease Management & Educaiton, DVT Prophylaxis, Fall Prevention, Fluid/Electrolyte/Nutrition Mgmt, Infection Prevention, Medication Management & Education, Management of Risks & Complications, Management of Skin Intergrity, Nutrition Management, Pain Management, Patient/Family Support, Safety Management Intensity of Therapy to be met Patient to be seen: Min.3h per day/5 of 7d PT IPOC Problem List: Activity Tolerance, Functional Strength, Safety, Balance, Gait, Transfer, Bed Mobility, ROM Treatment Plan: Continue Plan of Care Bed Mobility, Education, Functional Activity Itzel, Functional Strength, Group Therapy, Gait, Safety, Therapeutic Exercise, Transfers Treatment Duration: Sep 05, 2021 Frequency: At least 5 of 7 days/Wk (IRF) Estimated Hrs Per Day: 1.5 hours per day OT IPOC Problems: Decreased Activ Tolerance, Decreased Safety Aware, Decreased UE Strength, Dependent Transfers, Impaired Cognition, Impaired Coordination, Impaired Funct Balance, Impaired I ADL's, Impaired Self-Care Skills, Restricted Funct UE ROM OT Treatment, Training and Edu: Yes Plan of Care: ADL Retraining, Functional Mobility, Group Exercise/Act as Ind, Orthotic Fitting/Training, UE Funct Exercise/Act, W/C Management Training Treatment Duration: Sep 05, 2021 Frequency: At least 5 of 7 days/Wk (IRF) Estimated Hrs Per Day: 1.[address] IPOC Speech Therapy Treatment Plan: Discontinue ST Treatment Duration: Aug 16, 2021 Frequency: Modified Program (IRF) Estimated Hrs Per Day: Other Bread Slicer Machine/Case Mgmt Bread Slicer Machine/Case Managemen: Discharge Planning Dietitian/Division Road Supervisor Dietitian/Division Road Supervisor to monitor nutritional status and make changes and/or recommendations as needed and work with speech pathology on dietary upgrades as the occur. Physician IPOC Medical Issues being managed closely and that require the 24 hour availability of a physician: Recent complicated spine surgery with resultant postop ileus and urinary retention with severe debility will require close monitoring for falls and other decompensation Medical Issues: Bowel/Bladder Function, DVT Prophylaxis, Falls Precautions, Fluid/Electrolyte/Nutrition Balance, Infection Protection, Pain Management, Swallowing Precautions, Wound Care Brief Synthesis of Preadmission Screen, Post-Admission Evaluation, and Therapy Evaluations: PT and OT will focus on regaining function of lower extremities with the use of assistive devices for ambulation and increase ADLs in order to return back to independent living Medical Prognosis: Good Anticipated Length of Stay: 10 days WARREN FARAH DO Aug 17, 2021 05:56
[2021-08-17 07:30] VITALS: BP 152/72
--- NOTE | 2021-08-17 07:51 | Progress Note - Surgery ---
ONI MAJOR 08/17/21 0751: Subjective Time Seen by a Provider: 07:15 Subjective/Events-last exam Pt is doing a lot better, he had one soft bowel movement today early in the morning and is passing gas. Since his surgery from 08/13/21 he has had two bowel movements and has been passing gas consistently. He still reports achy abdominal pain with movement that has been there prior to his surgery. Review of Systems Pulmonary: No Dyspnea Cardiovascular: No: Chest Pain, Palpitations Gastrointestinal: Nausea (controlled on meds), Abdominal Pain (achy pain on movement ); No: Vomiting Neurological: No: Change in speech, Confusion Objective Exam Vital Signs Date Time Temp Pulse Resp B/P (MAP) Pulse Ox O2 Delivery O2 Flow Rate FiO2 08/17/21 07:30 36.7 71 20 152/72 (98) 97 Nasal Cannula 1.00 08/16/21 21:30 95 Nasal Cannula 2.00 08/16/21 19:54 36.8 74 16 146/65 (92) 95 08/16/21 15:22 98 Nasal Cannula 2.00 08/16/21 15:10 36.9 08/16/21 13:27 36.8 78 20 98 Nasal Cannula 2.00 08/16/21 09:07 Nasal Cannula 2.00 08/16/21 07:49 37.0 74 24 157/67 (97) 96 Nasal Cannula 1.00 I & O 08/17/21 06:59 Intake Total 3080 ml Output Total 1415 ml Balance 1665 ml Capillary Refill : General Appearance: No Apparent Distress, WD/WN, Chronically ill, Obese, Other (pale) HEENT: PERRL/EOMI, Normal ENT Inspection, Pharynx Normal Neck: Full Range of Motion, Normal Inspection, Non Tender, Supple, Carotid Bruit Respiratory: Chest Non Tender, Lungs Clear, No Accessory Muscle Use, No Respiratory Distress, Decreased Breath Sounds Cardiovascular: Regular Rate, Rhythm, No Edema, No Gallop, No JVD, No Murmur, Normal Peripheral Pulses Gastrointestinal: non tender, soft; No distended, No guarding, No rebound Extremity: Normal Capillary Refill, Normal Inspection, Normal Range of Motion (limited lower extremities), Non Tender, No Calf Tenderness, No Pedal Edema Neurologic/Psychiatric: Alert, Oriented x3, No Motor/Sensory Deficits, accountant property II- XII Norm as Tested, Abnormal Gait, Depressed Affect, Motor Weakness (lower legs) Skin: Normal Color, Warm/Dry Lymphatic: No Adenopathy Assessment/Plan Assessment/Plan Assessment/Plan Nausea and vomiting Possible ileus demonstrated by x-ray Status post back surgery performed on August [address] RAMACHANDRAN. Hepatocellular carcinoma Urinary retention Patient on clear liquids at this time. Would continue on clear liquids until nausea and vomiting resolved. If feeling better would advance diet tomorrow. Patient to try and limit narcotic use because this could be also causing his symptoms. Patient had bowel movement on 08/15 and another one today morning, he is passing flatus at this time therefore I think his symptoms will improve with conservative measures. Would keep on bowel regimen. Urinary retention Mccormick in place. Patient understands and agrees with plan along with his family at bedside. RICH SERRATO DO 08/17/21 1312: Subjective Subjective/Events-last exam Patient had bowel movement this morning. Patient passing flatus. Patient no abdominal pain. Patient having slight nausea but no more emesis. Patient no other new complaints. Denies fever sweats chills shortness of breath or chest pain. Objective Exam General Appearance: No Apparent Distress, WD/WN, Obese HEENT: PERRL/EOMI, Normal ENT Inspection Neck: Normal Inspection, Non Tender Respiratory: Chest Non Tender, No Accessory Muscle Use, No Respiratory Distress Cardiovascular: Regular Rate, Rhythm, No JVD Gastrointestinal: non tender, soft, no organomegaly Extremity: Normal Inspection, Normal Range of Motion (limited lower extremities), Non Tender Neurologic/Psychiatric: Alert, Oriented x3 Skin: Normal Color, Warm/Dry Lymphatic: No Adenopathy Assessment/Plan Assessment/Plan Assessment/Plan Nausea and vomiting Possible ileus demonstrated by x-ray Status post back surgery performed on August [address] RAMACHANDRAN. Hepatocellular carcinoma Urinary retention Patient on clear liquids at this time. Patient wanting diet advance will advance diet and see if he tolerates. Urinary retention Mccormick in place. Patient understands and agrees with plan. Will sign off call if needed Supervisory-Addendum Brief Verification & Attestation Participated in pt care: history, MDM, physical Personally performed: exam, history, MDM, supervision of care Care discussed with: Medical Student Procedures: n/a Results interpretation: Verified all documentation Verification and Attestation of Medical Student E/M Service A medical student performed and documented this service in my presence. I reviewed and verified all information documented by the medical student and made modifications to such information, when appropriate. I personally performed the physical exam and medical decision making. Rich Serrato, Aug 17, 2021,13:08 ONI MAJOR Aug 17, 2021 07:51 RICH SERRATO DO Aug 17, 2021 13:12
[2021-08-17] MEDS: AMIODARONE 200 MG (CORDARONE) TAB PO SCH (08:43)
[2021-08-17] MEDS: ASPIRIN E.C. 81 MG (ECOTRIN) TAB PO SCH (08:43)
[2021-08-17] MEDS: polyethylene glycoL POWDER 17 GM (MIRALAX) PACK PO SCH ×2 (08:43→20:07)
[2021-08-17] MEDS: DOCUSATE SODIUM 100 MG (COLACE) CAP PO SCH ×2 (08:43→20:07)
[2021-08-17] MEDS: amLODIPine 5 MG (NORVASC) TAB PO SCH (08:43)
[2021-08-17] MEDS: SENNA W/DOCUSATE (SENOKOT S) TABLET PO SCH ×2 (08:43→20:07)
[2021-08-17] MEDS: LOSARTAN 50 MG (COZAAR) TAB PO SCH (08:43)
[2021-08-17] MEDS: GABAPENTIN 300 MG (NEURONTIN) CAP PO SCH ×3 (08:43→21:12)
[2021-08-17] MEDS: FLUTICASONE NASAL SPRAY (FLONASE) 16 GM BTL NS SCH (08:50)
[2021-08-17] MEDS: DICLOFENAC 1% GEL 100 GM (VOLTAREN) TUBE TP SCH ×4 (08:51→21:13)
--- NOTE | 2021-08-17 14:31 | Physical Therapy Daily Note ---
PT Daily Note-Current Subjective Pt agreeable to therapy. He indicates that starting yesterday his ambulation is improving. Transfers SCALE: Activities may be completed with or without assistive devices. 2-Jkraiejwna-iwiawby completes the activity by him/herself with no assistance from a helper. 5-Set-up or Clean-up Assistance-helper sets up or cleans up; patient completes activity. [place] assists only prior to or following the activity. 4-Supervision or Touching Assistance-helper provides verbal cues and/or touching/steadying and/or contact guard assistance as patient completes activity. Assistance may be provided throughout the activity or intermittently. 3-Partial/Moderate Assistance-helper does LESS THAN HALF the effort. [place] lifts, holds or supports trunk or limbs, but provides less than half the effort. 2-Substantial/Maximal Assistance-helper does MORE THAN HALF the effort. [place] lifts or holds trunk or limbs and provides more than half the effort. 2-Sdggdpckl-whlljk does ALL the effort. Patient does none of the effort to complete the activity. Or, the assistance of 2 or more helpers is required for the patient to complete the activity. If activity was not attempted, code reason: 7-Patient Refused. 9-Not Applicable-not attempted and the patient did not perform the activity before the current illness, exacerbation or injury. 10-Not Attempted due to Environmental Limitations-(lack of equipment, weather restraints, etc.). 88-Not Attempted due to Medical Conditions or Safety Concerns. Transfers with Moderate assist bed to standing at walker. Assist for lumbar brace. Gait Training Gait Assistive Device: Parallel Bars Ambulate 15 rounds in the parallel bars with CGA and oxygen at 3 L/min. Assessment Ambulation distance and stability improved this session. Continue to advance gait and transfer training to promote d/c to home. PT Short Term Goals Short Term Goals Time Frame: Aug 22, 2021 Roll Left & Right: 4 Sit to lyin Lying to sitting on side of be: 3 Sit to stand: 4 Chair/jmc-ht-bvdli transfer: 4 Walk 10 feet: 4 Walk 50 feet with two turns: 4 PT Residential Goals Residential Goals PT Kitchen Assistant Goals Time Frame: Sep 05, 2021 Roll Left & Right (QC): 4 Sit to Lying (QC): 4 Lying-Sitting on Side/Bed(QC): 4 Sit to Stand (QC): 4 Chair/Brb-vz-Zhouz Xfer(QC): 4 Toilet Transfer (QC): 4 Car Transfer (QC): 4 Does the Patient Walk: Yes Walk 10 feet (QC): 4 Walk 50ft with 2 Turns (QC): 4 Walk 150 ft (QC): 4 Walking 10ft on Uneven Surface: 4 1 Step (curb) (QC): 4 4 Steps (QC): 4 12 Steps (QC): 88 Picking up an Object (QC): 88 Wheel 50 feet with 2 turns (QC: 9 Wheel 150 feet: 9 PT Plan Treatment/Plan Treatment Plan: Continue Plan of Care Treatment Plan: Bed Mobility, Education, Functional Activity Itzel, Functional Strength, Group Therapy, Gait, Safety, Therapeutic Exercise, Transfers Treatment Duration: Sep 05, 2021 Frequency: At least 5 of 7 days/Wk (IRF) Estimated Hrs Per Day: 1.5 hours per day Patient and/or Family Agrees t: Yes Time/GCodes Time In: 1115 Time Out: 1140 Total Billed Treatment Time: 25 Total Billed Treatment visit, gait 15 min, FA 10 min JOHNNIE ANAND PT Aug 17, 2021 14:31
[2021-08-17] MEDS: CATHETER FLUSH 10 ML SYR IV SCH ×2 (14:36→21:13)
[2021-08-17 19:56] VITALS: BP 173/75
[2021-08-17] MEDS: ROSUVASTATIN 10 MG (CRESTOR) TABLET PO SCH (21:12)
[2021-08-17] MEDS: doxAzosin 4 MG (CARDURA) TAB PO SCH (21:12)
[2021-08-17] MEDS: FINASTERIDE (PROSCAR) 5 MG TAB PO SCH (21:13)
[2021-08-18] MEDS: CATHETER FLUSH 10 ML SYR IV SCH ×3 (03:25→21:42)
[2021-08-18] MEDS: METOCLOPRAMIDE INJ 10 MG/2 ML (REGLAN) IVP SCH ×4 (03:26→21:42)
--- NOTE | 2021-08-18 06:14 | PM&R Progress Note ---
Subjective HPI/CC On Admission Date Seen by Provider: Aug 18, 2021 Time Seen by Provider: 06:20 Subjective/Events-last exam 08/18/2021: Patient doing really well Patient still needing to work on areas in order to remain independent Pain is controlled 08/17/2021: Patient dramatically improved Bowel movement occurred No distention of abdomen Advancing diet Hep locking IV fluid Discontinue the catheter 08/16/2021: Patient settling in Still nauseated Dr. Tse will be consulted Abdominal x-ray reviewed Hyponatremia noted at 128 Hemoglobin 8.4 Review of Systems Musculoskeletal: back pain Neurological: Weakness Objective Exam Vital Signs Vital Signs Date Time Temp Pulse Resp B/P (MAP) Pulse Ox O2 Delivery O2 Flow Rate FiO2 08/18/21 09:43 Nasal Cannula 1.00 08/18/21 07:29 36.6 80 18 152/68 (96) 99 Capillary Refill : General Appearance: No Apparent Distress, WD/WN, Chronically ill, Obese, Other (pale) HEENT: PERRL/EOMI, Normal ENT Inspection, Pharynx Normal Neck: Full Range of Motion, Normal Inspection, Non Tender, Supple, Carotid Bruit Respiratory: Chest Non Tender, Lungs Clear, No Accessory Muscle Use, No Respiratory Distress, Decreased Breath Sounds Cardiovascular: Regular Rate, Rhythm, No Edema, No Gallop, No JVD, No Murmur, Normal Peripheral Pulses Gastrointestinal: Normal Bowel Sounds, No Organomegaly, No Pulsatile Mass, Non Tender, Soft Back: Normal Inspection, No CVA Tenderness, No Vertebral Tenderness Extremity: Normal Capillary Refill, Normal Inspection, Normal Range of Motion (limited lower extremities), Non Tender, No Calf Tenderness, No Pedal Edema Neurologic/Psychiatric: Alert, Oriented x3, No Motor/Sensory Deficits, 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 FIM Transfers Therapy Code Descriptions/Definitions Functional [place] Measure: 0=Not Assessed/NA 4=Minimal Assistance 1=Total Assistance 5=Supervision or Setup 2=Maximal Assistance 6=Modified [place] 3=Moderate Assistance 7=Complete IndependenceSCALE: Activities may be completed with or without assistive devices. 3-Xmuztlyyew-hhsepqp completes the activity by him/herself with no assistance from a helper. 5-Set-up or Clean-up Assistance-helper sets up or cleans up; patient completes activity. [place] assists only prior to or following the activity. 4-Supervision or Touching Assistance-helper provides verbal cues and/or touching/steadying and/or contact guard assistance as patient completes activity. Assistance may be provided throughout the activity or intermittently. 3-Partial/Moderate Assistance-helper does LESS THAN HALF the effort. [place] lifts, holds or supports trunk or limbs, but provides less than half the effort. 2-Substantial/Maximal Assistance-helper does MORE THAN HALF the effort. [place] lifts or holds trunk or limbs and provides more than half the effort. 6-Pdiquittc-gpuagu does ALL the effort. Patient does none of the effort to complete the activity. Or, the assistance of 2 or more helpers is required for the patient to complete the activity. If activity was not attempted, code reason: 7-Patient Refused. 9-Not Applicable-not attempted and the patient did not perform the activity before the current illness, exacerbation or injury. 10-Not Attempted due to Environmental Limitations-(lack of equipment, weather restraints, etc.). 88-Not Attempted due to Medical Conditions or Safety Concerns. Roll Left to Right (QC): 3 Sit to Lying (QC): 1 Sit to Stand (QC): 3 Chair/Xyw-py-Fbdhw Xfer(QC): 3 Car Transfer (QC): 88 Gait Training Does the Patient Walk?: Yes Distance: 6'x3 Walk 10 feet (QC): 2 Walk 50 ft with 2 Turns(QC): 88 Walk 150 ft (QC): 88 Walking 10ft/uneven surface-QC: 88 Gait Persons Needed: 1 Gait Assistive Device: Parallel Bars Wheelchair Training Does the Pt Use a Wheelchair?: Yes Distance: 100'x2 Wheel 50 ft with 2 turns (QC): 3 Wheel 150 ft (QC): 88 Type of Wheelchair: Manual Stair Training 1 Step (curb) (QC): 88 4 Steps (QC): 88 12 Steps (QC): 88 Balance Picking up an Object (QC): 88 ADL-Treatment Eating (QC): 6 Oral Hygiene (QC): 3 Shower/Bathe Self (QC): 3 (Pt was Mod assist when standing to wash backside and clean eros-area, long handled sponge utilized during task. ) Upper Body Dressing (QC): 3 (Pt required touch assist to pull backside of shirt down. Total assist donning/doffing back brace.) Lower Body Dressing (QC): 1 (total assistance required) On/Off Footwear (QC): 1 (total assistance required) Toileting Hygiene (QC): 2 Assessment/Plan Assessment and Plan Assess & Plan/Chief Complaint Assessment: Status post spinal stenosis surgery by Dr. 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 Ramos Severe nausea and vomiting postoperatively Mccormick cath in place Urinary retention Atrial fibrillation CAD Plan: Inpatient rehab protocol Supportive care Gentle IV fluid 08/16/2021: Supportive care Gentle IV fluid Pain control 08/17/2021: Supportive care DC cath Hep-Lock IV fluid 08/18/2021: Incontinence management Monitor closely (1) Spinal stenosis (2) Hepatocellular carcinoma (3) Encounter for monitoring immunomodulating therapy (4) Nausea and vomiting (5) Urinary retention WARREN FARAH DO Aug 18, 2021 06:14
[2021-08-18 07:29] VITALS: BP 152/68
[2021-08-18] MEDS: GABAPENTIN 300 MG (NEURONTIN) CAP PO SCH ×3 (08:39→21:43)
[2021-08-18] MEDS: amLODIPine 5 MG (NORVASC) TAB PO SCH (08:39)
[2021-08-18] MEDS: AMIODARONE 200 MG (CORDARONE) TAB PO SCH (08:39)
[2021-08-18] MEDS: ACETAMINOPHEN 325 MG TABLET PO PRN ×2 (08:39→15:50)
[2021-08-18] MEDS: LOSARTAN 50 MG (COZAAR) TAB PO SCH (08:39)
[2021-08-18] MEDS: ASPIRIN E.C. 81 MG (ECOTRIN) TAB PO SCH (08:39)
[2021-08-18] MEDS: FLUTICASONE NASAL SPRAY (FLONASE) 16 GM BTL NS SCH (08:41)
[2021-08-18] MEDS: SENNA W/DOCUSATE (SENOKOT S) TABLET PO SCH ×2 (08:42→21:00)
[2021-08-18] MEDS: DICLOFENAC 1% GEL 100 GM (VOLTAREN) TUBE TP SCH ×4 (08:42→21:51)
[2021-08-18] MEDS: DOCUSATE SODIUM 100 MG (COLACE) CAP PO SCH ×2 (08:42→21:43)
[2021-08-18] MEDS: polyethylene glycoL POWDER 17 GM (MIRALAX) PACK PO SCH ×2 (08:42→21:00)
[2021-08-18] MEDS ORDERED: SCOPOLAMINE PATCH REMOVAL TP SCH (15:30)
[2021-08-18 20:00] VITALS: BP 165/77
[2021-08-18] MEDS: doxAzosin 4 MG (CARDURA) TAB PO SCH (21:42)
[2021-08-18] MEDS: ROSUVASTATIN 10 MG (CRESTOR) TABLET PO SCH (21:42)
[2021-08-18] MEDS: FINASTERIDE (PROSCAR) 5 MG TAB PO SCH (21:43)
[2021-08-19] MEDS: METOCLOPRAMIDE INJ 10 MG/2 ML (REGLAN) IVP SCH ×4 (04:50→22:16)
[2021-08-19] MEDS: CATHETER FLUSH 10 ML SYR IV SCH ×3 (04:51→22:04)
[2021-08-19 06:13] LABS: BASOPHILS % (AUTO) 0 % (0-10); EOSINOPHILS # (AUTO) 0.2 10^3/uL (0.0-0.3); EOSINOPHILS % (AUTO) 4 % (0-10); HEMATOCRIT 26 % (40-54); HEMOGLOBIN 8.7 g/dL (13.3-17.7); LYMPHOCYTES # (AUTO) 0.8 10^3/uL (1.0-4.0); LYMPHOCYTES % (AUTO) 17 % (12-44); MEAN CORPUSCULAR HEMOGLOBIN 30 pg (25-34); MEAN CORPUSCULAR HGB CONC 34 g/dL (32-36); MEAN CORPUSCULAR VOLUME 90 fL (80-99); MEAN PLATELET VOLUME 9.1 fL (9.0-12.2); MONOCYTES # (AUTO) 0.6 10^3/uL (0.0-1.0); MONOCYTES % (AUTO) 12 % (0-12); NEUTROPHILS % (AUTO) 64 % (42-75); PLATELET COUNT 147 10^3/uL (130-400); WHITE BLOOD COUNT 4.6 10^3/uL (4.3-11.0)
[2021-08-19 06:55] LABS: ALBUMIN 3.6 GM/DL (3.2-4.5); POTASSIUM 3.5 MMOL/L (3.6-5.0)
[2021-08-19 06:56] LABS: CALCIUM 8.5 MG/DL (8.5-10.1)
[2021-08-19 06:57] LABS: TOTAL PROTEIN 6.1 GM/DL (6.4-8.2)
[2021-08-19 06:59] LABS: BILIRUBIN,TOTAL 0.9 MG/DL (0.1-1.0)
[2021-08-19 07:01] LABS: CREATININE SERUM 0.61 MG/DL (0.60-1.30)
[2021-08-19] MEDS: SENNA W/DOCUSATE (SENOKOT S) TABLET PO SCH ×2 (08:16→22:01)
[2021-08-19] MEDS: ASPIRIN E.C. 81 MG (ECOTRIN) TAB PO SCH (08:16)
[2021-08-19] MEDS: DOCUSATE SODIUM 100 MG (COLACE) CAP PO SCH ×2 (08:16→22:00)
[2021-08-19] MEDS: LOSARTAN 50 MG (COZAAR) TAB PO SCH (08:16)
[2021-08-19] MEDS: amLODIPine 5 MG (NORVASC) TAB PO SCH (08:16)
[2021-08-19] MEDS: GABAPENTIN 300 MG (NEURONTIN) CAP PO SCH ×3 (08:16→22:01)
[2021-08-19] MEDS: AMIODARONE 200 MG (CORDARONE) TAB PO SCH (08:17)
[2021-08-19] MEDS: polyethylene glycoL POWDER 17 GM (MIRALAX) PACK PO SCH ×2 (08:17→22:09)
[2021-08-19] MEDS: FLUTICASONE NASAL SPRAY (FLONASE) 16 GM BTL NS SCH (08:19)
[2021-08-19] MEDS: DICLOFENAC 1% GEL 100 GM (VOLTAREN) TUBE TP SCH ×4 (08:21→22:04)
[2021-08-19 08:22] VITALS: BP 169/76
[2021-08-19] MEDS ORDERED: KCL 20 MEQ TAB (K-DUR) PO ONE (10:15)
--- NOTE | 2021-08-19 10:57 | PM&R Progress Note ---
Subjective HPI/CC On Admission Date Seen by Provider: Aug 19, 2021 Time Seen by Provider: 09:00 Subjective/Events-last exam 08/19/2021: Patient doing well Wants home health at [facility] Elevated blood pressure noted started hydralazine 25 twice daily Bowels moved yesterday Advancing diet Incontinent of bowel and bladder at times No pain is reported 08/18/2021: Patient doing really well Patient still needing to work on areas in order to remain independent Pain is controlled 08/17/2021: Patient dramatically improved Bowel movement occurred No distention of abdomen Advancing diet Hep locking IV fluid Discontinue the catheter 08/16/2021: Patient settling in Still nauseated Dr. Tse will be consulted Abdominal x-ray reviewed Hyponatremia noted at 128 Hemoglobin 8.4 Review of Systems General: Fatigue, Malaise Musculoskeletal: back pain Objective Exam Vital Signs Vital Signs Date Time Temp Pulse Resp B/P (MAP) Pulse Ox O2 Delivery O2 Flow Rate FiO2 08/19/21 21:00 Room Air 08/19/21 19:43 36.9 69 16 154/71 (98) 97 08/19/21 08:22 1.00 Capillary Refill : General Appearance: No Apparent Distress, WD/WN, Chronically ill, Obese, Other (pale) HEENT: PERRL/EOMI, Normal ENT Inspection, Pharynx Normal Neck: Full Range of Motion, Normal Inspection, Non Tender, Supple, Carotid Bruit Respiratory: Chest Non Tender, Lungs Clear, No Accessory Muscle Use, No Respiratory Distress, Decreased Breath Sounds Cardiovascular: Regular Rate, Rhythm, No Edema, No Gallop, No JVD, No Murmur, Normal Peripheral Pulses Gastrointestinal: Normal Bowel Sounds, No Organomegaly, No Pulsatile Mass, Non Tender, Soft Back: Normal Inspection, No CVA Tenderness, No Vertebral Tenderness Extremity: Normal Capillary Refill, Normal Inspection, Normal Range of Motion (limited lower extremities), Non Tender, No Calf Tenderness, No Pedal Edema Neurologic/Psychiatric: Alert, Oriented x3, No Motor/Sensory Deficits, 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 FIM Transfers Therapy Code Descriptions/Definitions Functional [place] Measure: 0=Not Assessed/NA 4=Minimal Assistance 1=Total Assistance 5=Supervision or Setup 2=Maximal Assistance 6=Modified [place] 3=Moderate Assistance 7=Complete IndependenceSCALE: Activities may be completed with or without assistive devices. 1-Vfwuixlnzp-hvgqhhj completes the activity by him/herself with no assistance from a helper. 5-Set-up or Clean-up Assistance-helper sets up or cleans up; patient completes activity. [place] assists only prior to or following the activity. 4-Supervision or Touching Assistance-helper provides verbal cues and/or touching/steadying and/or contact guard assistance as patient completes activity. Assistance may be provided throughout the activity or intermittently. 3-Partial/Moderate Assistance-helper does LESS THAN HALF the effort. [place] lifts, holds or supports trunk or limbs, but provides less than half the effort. 2-Substantial/Maximal Assistance-helper does MORE THAN HALF the effort. [place] lifts or holds trunk or limbs and provides more than half the effort. 1-Bozkectwb-jchppl does ALL the effort. Patient does none of the effort to complete the activity. Or, the assistance of 2 or more helpers is required for the patient to complete the activity. If activity was not attempted, code reason: 7-Patient Refused. 9-Not Applicable-not attempted and the patient did not perform the activity before the current illness, exacerbation or injury. 10-Not Attempted due to Environmental Limitations-(lack of equipment, weather restraints, etc.). 88-Not Attempted due to Medical Conditions or Safety Concerns. Roll Left to Right (QC): 3 Sit to Lying (QC): 1 Sit to Stand (QC): 3 Chair/Gsy-aj-Bshcl Xfer(QC): 3 Car Transfer (QC): 88 Gait Training Does the Patient Walk?: Yes Distance: 6'x3 Walk 10 feet (QC): 2 Walk 50 ft with 2 Turns(QC): 88 Walk 150 ft (QC): 88 Walking 10ft/uneven surface-QC: 88 Gait Persons Needed: 1 Gait Assistive Device: Parallel Bars Wheelchair Training Does the Pt Use a Wheelchair?: Yes Distance: 100'x2 Wheel 50 ft with 2 turns (QC): 3 Wheel 150 ft (QC): 88 Type of Wheelchair: Manual Stair Training 1 Step (curb) (QC): 88 4 Steps (QC): 88 12 Steps (QC): 88 Balance Picking up an Object (QC): 88 ADL-Treatment Eating (QC): 6 Oral Hygiene (QC): 3 Shower/Bathe Self (QC): 3 (Pt was Mod assist when standing to wash backside and clean eros-area, long handled sponge utilized during task. ) Upper Body Dressing (QC): 3 (Pt required touch assist to pull backside of shirt down. Total assist donning/doffing back brace.) Lower Body Dressing (QC): 1 (total assistance required) On/Off Footwear (QC): 1 (total assistance required) Toileting Hygiene (QC): 2 Assessment/Plan Assessment and Plan Assess & Plan/Chief Complaint Assessment: Status post spinal stenosis surgery by Dr. 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 Ramos Severe nausea and vomiting postoperatively Mccormick cath in place Urinary retention Atrial fibrillation CAD Plan: Inpatient rehab protocol Supportive care Gentle IV fluid 08/16/2021: Supportive care Gentle IV fluid Pain control 08/17/2021: Supportive care DC cath Hep-Lock IV fluid 08/18/2021: Incontinence management Monitor closely 08/19/2021: Supportive care Aggressive rehab (1) Spinal stenosis (2) Hepatocellular carcinoma (3) Encounter for monitoring immunomodulating therapy (4) Nausea and vomiting (5) Urinary retention WARREN FARAH DO Aug 19, 2021 10:57
--- NOTE | 2021-08-19 11:34 | Occupational Ther Daily Note ---
OT Current Status-Daily Note Subjective Pt was alert, laying in bed when therapy entered. Pt agreed to therapy and taking shower. No c/o pain reported. Mental Status/Objective Patient Orientation: Person, Place, Time, Situation Attachments: Drains, IV ADL-Treatment Pt transferred from supine to EOB with supervision. Pt transferred from EOB to FWW with CGA. Pt was able to don/doff back brace. Pt ambulated to bathroom using FWW with CGA and transferred to toilet with CGA. Pt ambulated to shower bench using FWW with CGA and verbal cues for correct steps of entering shower. Pt doffed UB and LB using dressing stick dressing with supervision. Pt cleansed and rinsed UB, chest and abdomen with supervision and required CGA for LB while using long handled sponge. Pt stood with SBA to cleanse eros area and buttocks with SBA. Pt transferred from shower bench to w/c with CGA. After set up, pt was able to don UB dressing. Pt was able to thread BLB and hike LB dressing with CGA using figure 4 technique. After set up, pt was able to don socks and shoes. Pt then completed oral hygiene while sitting in w/c at sink independently. Therapy Code Descriptions/Definitions Functional [place] Measure: 0=Not Assessed/NA 4=Minimal Assistance 1=Total Assistance 5=Supervision or Setup 2=Maximal Assistance 6=Modified [place] 3=Moderate Assistance 7=Complete IndependenceSCALE: Activities may be completed with or without assistive devices. 8-Uiucgpqlnc-hzapotg completes the activity by him/herself with no assistance from a helper. 5-Set-up or Clean-up Assistance-helper sets up or cleans up; patient completes activity. [place] assists only prior to or following the activity. 4-Supervision or Touching Assistance-helper provides verbal cues and/or touching/steadying and/or contact guard assistance as patient completes activity . Assistance may be provided throughout the activity or intermittently. 3-Partial/Moderate Assistance-helper does LESS THAN HALF the effort. [place] lifts, holds or supports trunk or limbs, but provides less than half the effort. 2-Substantial/Maximal Assistance-helper does MORE THAN HALF the effort. [place] lifts or holds trunk or limbs and provides more than half the effort. 0-Niyyqfjcr-oxuayd does ALL the effort. Patient does none of the effort to complete the activity. Or, the assistance of 2 or more helpers is required for the patient to complete the activity. If activity was not attempted, code reason: 7-Patient Refused. 9-Not Applicable-not attempted and the patient did not perform the activity before the current illness, exacerbation or injury. 10-Not Attempted due to Environmental Limitations-(lack of equipment, weather restraints, etc.). 88-Not Attempted due to Medical Conditions or Safety Concerns. Eating (QC): 6 (using clinical judgement) Oral Hygiene (QC): 6 Shower/Bathe Self (QC): 4 (SBA) Upper Body Dressing (QC): 5 Lower Body Dressing (QC): 4 (CGA) On/Off Footwear: 5 Toileting Hygiene (QC): 4 (CGA) Toilet Transfer (QC): 4 (CGA) Education OT Patient Education: Correct positioning, Instructions don/doff splint/brace Teaching Recipient: Patient Teaching Methods: Demonstration, Discussion Response to Teaching: Verbalize Understanding, Return Demonstration OT Short Term Goals Short Term Goals Time Frame: Aug 29, 2021 Eatin Oral hygiene: 5 Toileting hygiene: 3 (min) Shower/bathe self: 3 (min) Upper body dressin Lower body dressin Putting on/taking off footwear: 3 OT Service Plumber Goals Service Plumber Goals Time Frame: Sep 05, 2021 Eating (QC): 6 Oral Hygiene (QC): 6 Toileting Hygiene (QC): 6 Shower/Bathe Self (QC): 4 Upper Body Dressing (QC): 5 Lower Body Dressing (QC): 4 On/Off Footwear (QC): 5 1=Demonstrate adherence to instructed precautions during ADL tasks. 2=Patient will verbalize/demonstrate understanding of assistive devices/modifications for ADL. 3=Patient will improve strength/tolerance for activity to enable patient to perform ADL's. OT Education/Plan Problem List/Assessment Assessment: Impaired Self-Care Skills Discharge Recommendations Plan/Recommendations: Continue POC Treatment Plan/Plan of Care Patient would benefit from OT for education, treatment and training to promote independence in ADL's, mobility, safety and/or upper extremity function for ADL's. Plan of Care: ADL Retraining, Functional Mobility, Group Exercise/Act as Ind, Orthotic Fitting/Training, UE Funct Exercise/Act, W/C Management Training Treatment Duration: Sep 05, 2021 Frequency: At least 5 of 7 days/Wk (IRF) Estimated Hrs Per Day: 1.5 hours per day Agreement: Yes Rehab Potential: Fair Time/GCodes Start Time: 10:00 Stop Time: 11:00 Total Time Billed (hr/min): 60 Billed Treatment Time 1 visit-ADL 4 (60 mins) MARTIN GASTELUM Aug 19, 2021 11:34
[2021-08-19] MEDS: hydrALAZINE (APRESOLINE) 25 MG TAB PO SCH ×2 (11:45→22:01)
[2021-08-19] MEDS: ACETAMINOPHEN 325 MG TABLET PO PRN (11:50)
[2021-08-19 11:51] VITALS: BP 161/73
--- NOTE | 2021-08-19 11:52 | Physical Therapy Daily Note ---
PT Daily Note-Current Subjective Patient in WC at bedside pre tx, agrees to PT, has 5/10 pain. Appearance Patient in WC at bedside post tx with nurse call, phone, tray, all needs met. Has 6/10 back pain, nurse notified. Mental Status Patient Orientation: Person, Place, Situation back brace Transfers SCALE: Activities may be completed with or without assistive devices. 5-Iovvcwtyqd-aznzqtg completes the activity by him/herself with no assistance from a helper. 5-Set-up or Clean-up Assistance-helper sets up or cleans up; patient completes activity. [place] assists only prior to or following the activity. 4-Supervision or Touching Assistance-helper provides verbal cues and/or touching/steadying and/or contact guard assistance as patient completes activity. Assistance may be provided throughout the activity or intermittently. 3-Partial/Moderate Assistance-helper does LESS THAN HALF the effort. [place] lifts, holds or supports trunk or limbs, but provides less than half the effort. 2-Substantial/Maximal Assistance-helper does MORE THAN HALF the effort. [place] lifts or holds trunk or limbs and provides more than half the effort. 4-Tffmdlhfa-eacaif does ALL the effort. Patient does none of the effort to complete the activity. Or, the assistance of 2 or more helpers is required for the patient to complete the activity. If activity was not attempted, code reason: 7-Patient Refused. 9-Not Applicable-not attempted and the patient did not perform the activity before the current illness, exacerbation or injury. 10-Not Attempted due to Environmental Limitations-(lack of equipment, weather restraints, etc.). 88-Not Attempted due to Medical Conditions or Safety Concerns. Sit to Stand (QC): 4 Chair/[place] Xfer(QC): 4 CGA Gait Training Distance: 20', 100'x2 Walk 10 feet (QC): 4 Walk 50 ft with 2 Turns(QC): 4 Gait Persons Needed: 1 Gait Assistive Device: FWW WC follow, slow ambulation, more steady than last week, no knee buckling Wheelchair Training Does the Pt Use a Wheelchair?: Yes Wheel 50 ft with 2 turns (QC): 4 Wheel 150 ft (QC): 4 Type of Wheelchair: Manual 150'x2 SBA Exercises Standing: Hip Abduction, Heel/toe raises, Marching, Mini squats Standing Reps: 15 NuStep Minutes: 15 NuStep Workload: 5 Treatments WC mobility, ambulation, functional strengthening Assessment Current Status: Fair Progress improved LE strength, balance, and ambulation PT Short Term Goals Short Term Goals Time Frame: Aug 22, 2021 Roll Left & Right: 4 Sit to lyin Lying to sitting on side of be: 3 Sit to stand: 4 Chair/zkt-bo-rxfdx transfer: 4 Walk 10 feet: 4 Walk 50 feet with two turns: 4 PT Mcfp Goals Post Acute Care Registered Nurse Goals PT Post Acute Care Registered Nurse Goals Time Frame: Sep 05, 2021 Roll Left & Right (QC): 4 Sit to Lying (QC): 4 Lying-Sitting on Side/Bed(QC): 4 Sit to Stand (QC): 4 Chair/Ebp-ds-Cjzgl Xfer(QC): 4 Toilet Transfer (QC): 4 Car Transfer (QC): 4 Does the Patient Walk: Yes Walk 10 feet (QC): 4 Walk 50ft with 2 Turns (QC): 4 Walk 150 ft (QC): 4 Walking 10ft on Uneven Surface: 4 1 Step (curb) (QC): 4 4 Steps (QC): 4 12 Steps (QC): 88 Picking up an Object (QC): 88 Wheel 50 feet with 2 turns (QC: 9 Wheel 150 feet: 9 PT Plan Problem List Problem List: Activity Tolerance, Functional Strength, Safety, Balance, Gait, Transfer, Bed Mobility, ROM Treatment/Plan Treatment Plan: Continue Plan of Care Treatment Plan: Bed Mobility, Education, Functional Activity [place], Functional Strength, Group Therapy, Gait, Safety, Therapeutic Exercise, Transfers Treatment Duration: Sep 05, 2021 Frequency: At least 5 of 7 days/Wk (IRF) Estimated Hrs Per Day: 1.5 hours per day Patient and/or Family Agrees t: Yes Safety Risks/Education Patient Education: Gait Training, Transfer Techniques, Correct Positioning, Safety Issues Teaching Recipient: Patient Teaching Methods: Demonstration, Discussion Response to Teaching: Reinforcement Needed Time/GCodes Time In: 1100 Time Out: 1200 Total Billed Treatment Time: 60 Total Billed Treatment 1 visit EX 30' FA 30' ANITRA MORALES PT Aug 19, 2021 11:52
--- NOTE | 2021-08-19 13:43 | Occupational Ther Daily Note ---
OT Current Status-Daily Note Subjective Pt alert, eating lunch when therapy entered. Pt agreed to therapy. No c/o pain reported. Mental Status/Objective Patient Orientation: Person, Place, Time, Situation Attachments: Drains, IV ADL-Treatment Pt wheeled self to bathroom in w/c. Pt transferred from w/c to toilet with SBA. Pt sit-stand from toilet using grab bars to hike LB dressing with supervision. Therapy Code Descriptions/Definitions Functional [place] Measure: 0=Not Assessed/NA 4=Minimal Assistance 1=Total Assistance 5=Supervision or Setup 2=Maximal Assistance 6=Modified [place] 3=Moderate Assistance 7=Complete IndependenceSCALE: Activities may be completed with or without assistive devices. 4-Bbksvsynbh-cbgrrdn completes the activity by him/herself with no assistance from a helper. 5-Set-up or Clean-up Assistance-helper sets up or cleans up; patient completes activity. [place] assists only prior to or following the activity. 4-Supervision or Touching Assistance-helper provides verbal cues and/or touching/steadying and/or contact guard assistance as patient completes activity. Assistance may be provided throughout the activity or intermittently. 3-Partial/Moderate Assistance-helper does LESS THAN HALF the effort. [place] lifts, holds or supports trunk or limbs, but provides less than half the effort. 2-Substantial/Maximal Assistance-helper does MORE THAN HALF the effort. [place] lifts or holds trunk or limbs and provides more than half the effort. 3-Jeasmcmgf-pixrxf does ALL the effort. Patient does none of the effort to complete the activity. Or, the assistance of 2 or more helpers is required for the patient to complete the activity. If activity was not attempted, code reason: 7-Patient Refused. 9-Not Applicable-not attempted and the patient did not perform the activity befo re the current illness, exacerbation or injury. 10-Not Attempted due to Environmental Limitations-(lack of equipment, weather re straints, etc.). 88-Not Attempted due to Medical Conditions or Safety Concerns. Toilet Transfer (QC): 4 (SBA) Other Treatment Skilled instruction required for correct technique during theraband exercises. Pt completed 2 sets x10 of yellow theraband exercises while seated in w/c to increase B UE ROM for improved independence with ADLs such as LB/UB dressing and bathing. Pt required demonstration of exercise and was able to return demonstration independently. Pt transferred from w/c to EOB with SBA. Pt required min A from EOB-supine to swing legs onto bed. After therapy, pt laying in bed. Call light in reach and all needs met. Education OT Patient Education: Exercise program, Home exercise program, Instructions don/doff splint/brace Teaching Recipient: Patient Teaching Methods: Demonstration, Handout, Discussion Response to Teaching: Verbalize Understanding, Return Demonstration OT Short Term Goals Short Term Goals Time Frame: Aug 29, 2021 Eatin Oral hygiene: 5 Toileting hygiene: 3 (min) Shower/bathe self: 3 (min) Upper body dressin Lower body dressin Putting on/taking off footwear: 3 OT Senior Living Goals Senior Living Goals Time Frame: Sep 05, 2021 Eating (QC): 6 Oral Hygiene (QC): 6 Toileting Hygiene (QC): 6 Shower/Bathe Self (QC): 4 Upper Body Dressing (QC): 5 Lower Body Dressing (QC): 4 On/Off Footwear (QC): 5 1=Demonstrate adherence to instructed precautions during ADL tasks. 2=Patient will verbalize/demonstrate understanding of assistive devices/modifications for ADL. 3=Patient will improve strength/tolerance for activity to enable patient to perform ADL's. OT Education/Plan Problem List/Assessment Assessment: Impaired Self-Care Skills Discharge Recommendations Plan/Recommendations: Continue POC Treatment Plan/Plan of Care Patient would benefit from OT for education, treatment and training to promote independence in ADL's, mobility, safety and/or upper extremity function for ADL's. Plan of Care: ADL Retraining, Functional Mobility, Group Exercise/Act as Ind, Orthotic Fitting/Training, UE Funct Exercise/Act, W/C Management Training Treatment Duration: Sep 05, 2021 Frequency: At least 5 of 7 days/Wk (IRF) Estimated Hrs Per Day: 1.5 hours per day Agreement: Yes Rehab Potential: Fair Time/GCodes Start Time: 13:00 Stop Time: 13:30 Total Time Billed (hr/min): 30 Billed Treatment Time 1 visit- ADL 1 (12 mins) EX 1 (18 mins) 30 mins MARTIN GASTELUM Aug 19, 2021 13:43
--- NOTE | 2021-08-19 14:28 | Physical Therapy Daily Note ---
PT Daily Note-Current Subjective Patient in bed pre tx, agrees to PT, has 5/10 pain in back. Appearance Patient in bed post tx with nurse call, phone, tray, all needs met. Mental Status Patient Orientation: Person, Place, Situation back brace Transfers SCALE: Activities may be completed with or without assistive devices. 0-Pzddgjwqbi-axkegve completes the activity by him/herself with no assistance from a helper. 5-Set-up or Clean-up Assistance-helper sets up or cleans up; patient completes activity. [place] assists only prior to or following the activity. 4-Supervision or Touching Assistance-helper provides verbal cues and/or touchi ng/steadying and/or contact guard assistance as patient completes activity. Assistance may be provided throughout the activity or intermittently. 3-Partial/Moderate Assistance-helper does LESS THAN HALF the effort. [place] lifts, holds or supports trunk or limbs, but provides less than half the effort. 2-Substantial/Maximal Assistance-helper does MORE THAN HALF the effort. [place] lifts or holds trunk or limbs and provides more than half the effort. 9-Dooymfjor-lpjlbx does ALL the effort. Patient does none of the effort to complete the activity. Or, the assistance of 2 or more helpers is required for the patient to complete the activity. If activity was not attempted, code reason: 7-Patient Refused. 9-Not Applicable-not attempted and the patient did not perform the activity before the current illness, exacerbation or injury. 10-Not Attempted due to Environmental Limitations-(lack of equipment, weather restraints, etc.). 88-Not Attempted due to Medical Conditions or Safety Concerns. Roll Left & Right (QC): 4 Sit to Lying (QC): 3 (mod assist) Lying to Sitting/Side of Bed(Q: 3 (mod assist) Sit to Stand (QC): 4 Chair/Lit[place] Xfer(QC): 4 Gait Training Distance: 120'x2 Walk 10 feet (QC): 4 Walk 50 ft with 2 Turns(QC): 4 Gait Persons Needed: 1 Gait Assistive Device: FWW close guarding but no LOB, slow ambulation, antalgic Exercises Seated Therapy Exercises: Ankle pumps, Hip flexion, Hip abd/add (with ball and RTB) LAQ alternating for 5 min Treatments LE exercise, bed mobility and transfers, ambulation Assessment Current Status: Fair Progress good progress with ambulation but needs quite a bit of assist to get into and out of bed PT Short Term Goals Short Term Goals Time Frame: Aug 22, 2021 Roll Left & Right: 4 Sit to lyin Lying to sitting on side of be: 3 Sit to stand: 4 Chair/wva-pn-tlowj transfer: 4 Walk 10 feet: 4 Walk 50 feet with two turns: 4 PT Emergency Dept Tech Goals Halfway Goals PT Halfway Goals Time Frame: Sep 05, 2021 Roll Left & Right (QC): 4 Sit to Lying (QC): 4 Lying-Sitting on Side/Bed(QC): 4 Sit to Stand (QC): 4 Chair/Pqs-tj-Eysee Xfer(QC): 4 Toilet Transfer (QC): 4 Car Transfer (QC): 4 Does the Patient Walk: Yes Walk 10 feet (QC): 4 Walk 50ft with 2 Turns (QC): 4 Walk 150 ft (QC): 4 Walking 10ft on Uneven Surface: 4 1 Step (curb) (QC): 4 4 Steps (QC): 4 12 Steps (QC): 88 Picking up an Object (QC): 88 Wheel 50 feet with 2 turns (QC: 9 Wheel 150 feet: 9 PT Plan Problem List Problem List: Activity Tolerance, Functional Strength, Safety, Balance, Gait, Transfer, Bed Mobility, ROM Treatment/Plan Treatment Plan: Continue Plan of Care Treatment Plan: Bed Mobility, Education, Functional Activity Itzel, Functional Strength, Group Therapy, Gait, Safety, Therapeutic Exercise, Transfers Treatment Duration: Sep 05, 2021 Frequency: At least 5 of 7 days/Wk (IRF) Estimated Hrs Per Day: 1.5 hours per day Patient and/or Family Agrees t: Yes Safety Risks/Education Patient Education: Gait Training, Transfer Techniques, Reviewed Precautions, Correct Positioning, Reviewed Don/Doff Brace, Safety Issues Teaching Recipient: Patient Teaching Methods: Demonstration, Discussion Response to Teaching: Reinforcement Needed Time/GCodes Time In: 1400 Time Out: 1430 Total Billed Treatment Time: 30 Total Billed Treatment 1 visit GT 15' EX 15' ANITRA MORALES PT Aug 19, 2021 14:28
[2021-08-19 19:43] VITALS: BP 154/71
[2021-08-19] MEDS: ROSUVASTATIN 10 MG (CRESTOR) TABLET PO SCH (22:00)
[2021-08-19] MEDS: doxAzosin 4 MG (CARDURA) TAB PO SCH (22:00)
[2021-08-19] MEDS: FINASTERIDE (PROSCAR) 5 MG TAB PO SCH (22:02)
[2021-08-19] MEDS: HYDROCORTISONE 2.5% CREAM (ANUSOL-HC) 30 GM TOP SCH (22:03)
[2021-08-20] MEDS: METOCLOPRAMIDE INJ 10 MG/2 ML (REGLAN) IVP SCH ×2 (04:09→11:16)
[2021-08-20] MEDS: ACETAMINOPHEN 325 MG TABLET PO PRN ×2 (04:09→13:08)
[2021-08-20] MEDS: CATHETER FLUSH 10 ML SYR IV SCH ×3 (04:10→20:26)
[2021-08-20] MEDS: KCL 20 MEQ TAB (K-DUR) PO SCH (06:39)
[2021-08-20 09:18] VITALS: BP 159/74
[2021-08-20] MEDS: AMIODARONE 200 MG (CORDARONE) TAB PO SCH (09:20)
[2021-08-20] MEDS: GABAPENTIN 300 MG (NEURONTIN) CAP PO SCH ×3 (09:20→20:26)
[2021-08-20] MEDS: hydrALAZINE (APRESOLINE) 25 MG TAB PO SCH ×2 (09:20→20:26)
[2021-08-20] MEDS: amLODIPine 5 MG (NORVASC) TAB PO SCH (09:20)
[2021-08-20] MEDS: LOSARTAN 50 MG (COZAAR) TAB PO SCH (09:20)
[2021-08-20] MEDS: ASPIRIN E.C. 81 MG (ECOTRIN) TAB PO SCH (09:20)
[2021-08-20] MEDS: DICLOFENAC 1% GEL 100 GM (VOLTAREN) TUBE TP SCH ×4 (09:33→20:27)
[2021-08-20] MEDS: polyethylene glycoL POWDER 17 GM (MIRALAX) PACK PO SCH ×2 (09:34→19:49)
[2021-08-20] MEDS: FLUTICASONE NASAL SPRAY (FLONASE) 16 GM BTL NS SCH (09:34)
[2021-08-20] MEDS: SENNA W/DOCUSATE (SENOKOT S) TABLET PO SCH ×2 (09:39→20:25)
[2021-08-20] MEDS: DOCUSATE SODIUM 100 MG (COLACE) CAP PO SCH ×2 (09:39→20:25)
--- NOTE | 2021-08-20 10:54 | Occupational Ther Daily Note ---
OT Current Status-Daily Note Subjective Pt alert, laying in bed when therapy entered. Pt agreed to therapy. No c/o pain reported. Mental Status/Objective Patient Orientation: Person, Place, Time, Situation Attachments: Drains, IV ADL-Treatment Therapy Code Descriptions/Definitions Functional [place] Measure: 0=Not Assessed/NA 4=Minimal Assistance 1=Total Assistance 5=Supervision or Setup 2=Maximal Assistance 6=Modified [place] 3=Moderate Assistance 7=Complete IndependenceSCALE: Activities may be completed with or without assistive devices. 6-Kguabowcgz-nfgoalm completes the activity by him/herself with no assistance from a helper. 5-Set-up or Clean-up Assistance-helper sets up or cleans up; patient completes activity. [place] assists only prior to or following the activity. 4-Supervision or Touching Assistance-helper provides verbal cues and/or touching/steadying and/or contact guard assistance as patient completes activit y. Assistance may be provided throughout the activity or intermittently. 3-Partial/Moderate Assistance-helper does LESS THAN HALF the effort. [place] lifts, holds or supports trunk or limbs, but provides less than half the effort. 2-Substantial/Maximal Assistance-helper does MORE THAN HALF the effort. [place] lifts or holds trunk or limbs and provides more than half the effort. 7-Dwhadxmat-shaewl does ALL the effort. Patient does none of the effort to complete the activity. Or, the assistance of 2 or more helpers is required for the patient to complete the activity. If activity was not attempted, code reason: 7-Patient Refused. 9-Not Applicable-not attempted and the patient did not perform the activity before the current illness, exacerbation or injury. 10-Not Attempted due to Environmental Limitations-(lack of equipment, weather restraints, etc.). 88-Not Attempted due to Medical Conditions or Safety Concerns. Eating (QC): 6 (Per clincal judgment ) Oral Hygiene (QC): 6 (Pt completed oral hygiene independently while sitting in w/c at sink. ) Bathing Location: L Arm, R Arm, L Upper Leg, R Upper Leg, L Lower Leg (including foot), R Lower Leg (including foot), Chest, Abdomen, Buttocks, Pe rineal Area Shower/Bathe Self (QC): 6 (Pt was able to complete shower independently. He required shower bench, long handled sponge, and hand held shower.) Upper Body Dressing (QC): 6 (Pt able to don/doff UB dressing independently.) Lower Body Dressing (QC): 6 (Pt able to thread B LUE into briefs and LB dressing using figure four technique. Sit-stand to FWW to hike LB dressing indpendently. ) On/Off Footwear: 6 (Pt able to don/doff footwear independently while sitting in w/c.) Toileting Hygiene (QC): 6 (Per clincal judgement. ) Toilet Transfer (QC): 6 (Per clincal judgment. ) Pt required several reminders for when to don back brace. Pt was able to retrieve clothing from closet using FWW. After therapy, pt sitting in chair. All needs met and call light in reach. Education OT Patient Education: Instructions don/doff splint/brace Teaching Recipient: Patient Teaching Methods: Discussion Response to Teaching: Verbalize Understanding, Return Demonstration OT Short Term Goals Short Term Goals Time Frame: Aug 29, 2021 Eatin Oral hygiene: 5 Toileting hygiene: 3 (min) Shower/bathe self: 3 (min) Upper body dressin Lower body dressin Putting on/taking off footwear: 3 OT Ice Maker Goals [facility] Goals Time Frame: Sep 05, 2021 Eating (QC): 6 (Met) Oral Hygiene (QC): 6 (Met) Toileting Hygiene (QC): 6 (Met) Shower/Bathe Self (QC): 4 (Met) Upper Body Dressing (QC): 5 (Met) Lower Body Dressing (QC): 4 (Met) On/Off Footwear (QC): 5 (Met) 1=Demonstrate adherence to instructed precautions during ADL tasks. 2=Patient will verbalize/demonstrate understanding of assistive devices/modifications for ADL. 3=Patient will improve strength/tolerance for activity to enable patient to perform ADL's. OT Education/Plan Problem List/Assessment Assessment: Impaired Self-Care Skills Discharge Recommendations Plan/Recommendations: Continue POC Treatment Plan/Plan of Care Patient would benefit from OT for education, treatment and training to promote independence in ADL's, mobility, safety and/or upper extremity function for ADL's. Plan of Care: ADL Retraining, Functional Mobility, Group Exercise/Act as Ind, Orthotic Fitting/Training, UE Funct Exercise/Act, W/C Management Training Treatment Duration: Sep 05, 2021 Frequency: At least 5 of 7 days/Wk (IRF) Estimated Hrs Per Day: 1.5 hours per day Agreement: Yes Rehab Potential: Fair Time/GCodes Start Time: 10:00 Stop Time: 11:00 Total Time Billed (hr/min): 60 Billed Treatment Time 1 visit- ADL 4 (60mins) MARTIN GASTELUM Aug 20, 2021 10:54
--- NOTE | 2021-08-20 11:49 | Physical Therapy Daily Note ---
PT Daily Note-Current Subjective Patient in recliner pre tx, agrees to PT, has 5/10 low back pain, states he has already had pain meds. Appearance Patient in recliner post tx with nurse call, phone, tray, all needs met. Mental Status Patient Orientation: Person, Place, Situation back brace Transfers SCALE: Activities may be completed with or without assistive devices. 0-Ophxwcmswq-fgqpwlp completes the activity by him/herself with no assistance from a helper. 5-Set-up or Clean-up Assistance-helper sets up or cleans up; patient completes activity. [place] assists only prior to or following the activity. 4-Supervision or Touching Assistance-helper provides verbal cues and/or touching/steadying and/or contact guard assistance as patient completes activity. Assistance may be provided throughout the activity or intermittently. 3-Partial/Moderate Assistance-helper does LESS THAN HALF the effort. [place] lifts, holds or supports trunk or limbs, but provides less than half the effort. 2-Substantial/Maximal Assistance-helper does MORE THAN HALF the effort. [place] lifts or holds trunk or limbs and provides more than half the effort. 6-Vfgcwnpzx-rqppcm does ALL the effort. Patient does none of the effort to complete the activity. Or, the assistance of 2 or more helpers is required for the patient to complete the activity. If activity was not attempted, code reason: 7-Patient Refused. 9-Not Applicable-not attempted and the patient did not perform the activity before the current illness, exacerbation or injury. 10-Not Attempted due to Environmental Limitations-(lack of equipment, weather restraints, etc.). 88-Not Attempted due to Medical Conditions or Safety Concerns. Roll Left & Right (QC): 6 Sit to Lying (QC): 3 Lying to Sitting/Side of Bed(Q: 3 Sit to Stand (QC): 4 Chair/Ogd-ed-Larvu Xfer(QC): 4 Toilet Transfer (QC): 4 Car Transfer (QC): 4 Patient performs rolling with independence, supine <-> sit min assist, sit <-> stand and transfers SBA, car transfer SBA. Occasional cues for positioning and safety. Gait Training Distance: 150'x2 Walk 10 feet (QC): 4 Walk 50 ft with 2 Turns(QC): 4 Walk 150 ft (QC): 4 Walking 10ft/uneven surface-QC: 4 Gait Persons Needed: 1 Gait Assistive Device: FWW Patient can ambulate 150' with a rolling walker with SBA (including 50' with at least 2 turns of 90 degrees but needs CGA for 10' over an uneven surface). Patient ambulates slowly, leans to the left with fatigue, increasing low back pain. Wheelchair Training Wheel 50 ft with 2 turns (QC): 9 Wheel 150 ft (QC): 9 Stair Training Stair Training: Handrails/: 2 handrails #of Steps: 4 1 Step (curb) (QC): 4 4 Steps (QC): 4 12 Steps (QC): 88 Stairs: Pattern: Step to Patient can go up and down 4 steps using 2 handrails with CGA, cues for foot placement and safety Balance Picking up an Object (QC): 88 Exercises NuStep Minutes: 15 NuStep Workload: 5 Treatments bed mobility and transfers, ambulation, stair training, gait training, and LE strengthening Assessment Current Status: Fair Progress Improving general mobility. still needs some assist for supine <-> sit. PT Short Term Goals Short Term Goals Time Frame: Aug 22, 2021 Roll Left & Right: 4 Sit to lyin Lying to sitting on side of be: 3 Sit to stand: 4 Chair/wto-qq-uhvzc transfer: 4 Walk 10 feet: 4 Walk 50 feet with two turns: 4 PT [employer] Bro[employer] Goals Custodial Goals PT Custodial Goals Time Frame: Sep 05, 2021 Roll Left & Right (QC): 4 Sit to Lying (QC): 4 Lying-Sitting on Side/Bed(QC): 4 Sit to Stand (QC): 4 Chair/Gyw-wa-Jowda Xfer(QC): 4 Toilet Transfer (QC): 4 Car Transfer (QC): 4 Does the Patient Walk: Yes Walk 10 feet (QC): 4 Walk 50ft with 2 Turns (QC): 4 Walk 150 ft (QC): 4 Walking 10ft on Uneven Surface: 4 1 Step (curb) (QC): 4 4 Steps (QC): 4 12 Steps (QC): 88 Picking up an Object (QC): 88 Wheel 50 feet with 2 turns (QC: 9 Wheel 150 feet: 9 PT Plan Problem List Problem List: Activity Tolerance, Functional Strength, Safety, Balance, Gait, Transfer, Bed Mobility, ROM Treatment/Plan Treatment Plan: Continue Plan of Care Treatment Plan: Bed Mobility, Education, Functional Activity Itzel, Functional Strength, Group Therapy, Gait, Safety, Therapeutic Exercise, Transfers Treatment Duration: Sep 05, 2021 Frequency: At least 5 of 7 days/Wk (IRF) Estimated Hrs Per Day: 1.5 hours per day Patient and/or Family Agrees t: Yes Safety Risks/Education Patient Education: Gait Training, Transfer Techniques, Steps, Correct Positioning, Safety Issues Teaching Recipient: Patient Teaching Methods: Demonstration, Discussion Response to Teaching: Reinforcement Needed Time/GCodes Time In: 1100 Time Out: 1200 Total Billed Treatment Time: 60 Total Billed Treatment 1 visit EX 15' FA 45' ANITRA MORALES PT Aug 20, 2021 11:49
[2021-08-20] MEDS: HYDROCORTISONE 2.5% CREAM (ANUSOL-HC) 30 GM TOP SCH ×2 (12:39→20:27)
--- NOTE | 2021-08-20 13:31 | Occupational Ther Daily Note ---
OT Current Status-Daily Note Subjective Pt alert, sitting in chair when therapy entered. Visitors in room. Pt agreed to therapy. No c/o pain reported. Mental Status/Objective Patient Orientation: Person, Place, Time, Situation Attachments: Drains, IV ADL-Treatment Therapy Code Descriptions/Definitions Functional [place] Measure: 0=Not Assessed/NA 4=Minimal Assistance 1=Total Assistance 5=Supervision or Setup 2=Maximal Assistance 6=Modified [place] 3=Moderate Assistance 7=Complete IndependenceSCALE: Activities may be completed with or without assistive devices. 3-Vdhwoymsks-umtnyvw completes the activity by him/herself with no assistance from a helper. 5-Set-up or Clean-up Assistance-helper sets up or cleans up; patient completes activity. [place] assists only prior to or following the activity. 4-Supervision or Touching Assistance-helper provides verbal cues and/or touching/steadying and/or contact guard assistance as patient completes activity. Assistance may be provided throughout the activity or intermittently. 3-Partial/Moderate Assistance-helper does LESS THAN HALF the effort. [place] lifts, holds or supports trunk or limbs, but provides less than half the effort. 2-Substantial/Maximal Assistance-helper does MORE THAN HALF the effort. [place] lifts or holds trunk or limbs and provides more than half the effort. 1-Koybvxaan-yxyyyd does ALL the effort. Patient does none of the effort to complete the activity. Or, the assistance of 2 or more helpers is required for the patient to complete the activity. If activity was not attempted, code reason: 7-Patient Refused. 9-Not Applicable-not attempted and the patient did not perform the activity before the current illness, exacerbation or injury. 10-Not Attempted due to Environmental Limitations-(lack of equipment, weather restraints, etc.). 88-Not Attempted due to Medical Conditions or Safety Concerns. Other Treatment Pt ambulated from room to gym using FWW independently. Once in gym, pt participated in 10 mins at 25 resistance of arm bike exercise to increase BUE strength for improved independence of daily task. Pt required x2 rest break during exercise due to fatigue and decrease B UE strength. Pt ambulated back to room using FWW independently and transferred to chair. After therapy, pt sitting in chair. All needs met and call light in reach. Education OT Patient Education: Energy conservation Teaching Recipient: Patient Teaching Methods: Discussion Response to Teaching: Verbalize Understanding, Return Demonstration OT Short Term Goals Short Term Goals Time Frame: Aug 29, 2021 Eatin Oral hygiene: 5 Toileting hygiene: 3 (min) Shower/bathe self: 3 (min) Upper body dressin Lower body dressin Putting on/taking off footwear: 3 OT [facility] Goals Dental Intern Goals Time Frame: Sep 05, 2021 Eating (QC): 6 (Met) Oral Hygiene (QC): 6 (Met) Toileting Hygiene (QC): 6 (Met) Shower/Bathe Self (QC): 4 (Met) Upper Body Dressing (QC): 5 (Met) Lower Body Dressing (QC): 4 (Met) On/Off Footwear (QC): 5 (Met) 1=Demonstrate adherence to instructed precautions during ADL tasks. 2=Patient will verbalize/demonstrate understanding of assistive devices/modifications for ADL. 3=Patient will improve strength/tolerance for activity to enable patient to perform ADL's. OT Education/Plan Problem List/Assessment Assessment: Impaired Self-Care Skills Discharge Recommendations Plan/Recommendations: Continue POC Treatment Plan/Plan of Care Patient would benefit from OT for education, treatment and training to promote independence in ADL's, mobility, safety and/or upper extremity function for ADL's. Plan of Care: ADL Retraining, Functional Mobility, Group Exercise/Act as Ind, Orthotic Fitting/Training, UE Funct Exercise/Act, W/C Management Training Treatment Duration: Sep 05, 2021 Frequency: At least 5 of 7 days/Wk (IRF) Estimated Hrs Per Day: 1.5 hours per day Agreement: Yes Rehab Potential: Fair Time/GCodes Start Time: 13:00 Stop Time: 13:30 Total Time Billed (hr/min): 30 Billed Treatment Time 1 visit- EX 2 (30 mins) MARTIN GASTELUM Aug 20, 2021 13:31
--- NOTE | 2021-08-20 14:08 | Physical Therapy Progress Note ---
Therapy Progress Note Patient has been throwing up this afternoon. Nurse is aware and in patient's room currently. Patient refuses therapy this afternoon. Patient is discharging tomorrow. ANITRA MORALES PT Aug 20, 2021 14:08
[2021-08-20 14:09] VITALS: BP 152/66
--- NOTE | 2021-08-20 14:17 | ST Cognitive Linguistic Eval ---
Speech Evaluation-General Medical Diagnosis Lumbar laminectomy Onset Date: Aug 13, 2021 Medical History Pertinent Medical History: Atrial Fib, CABG, HTN, [place] Reviewed History: Yes Social History Current Living Status: Spouse Speech PLF-Current Status Subjective Pt pleasant and cooperative for speech therapy evaluation. Language Eval: Auditory Comprehends Simple Yes/No Ques: Functional Indent/Objects Multiple [place]: Functional Ident/Pics in Multiple [place]: Functional Follows 1-Step Commands: Functional Follows Complex Directions: Functional Follows General Conversations: Functional Language Eval: Verbal Language Completes Spontaneous Greeting: Functional Produces Auto, Serial Info: Functional Imitates Simple Words/Phrases: Functional Word Finding: Functional Requests Basic Needs: Functional States Basic Personal Info: Functional Expresses Complex Ideas: Functional Objective Formal/Standardized Tests [facility] Mental Status Exam (UMS) completed. Results correct. Impression The pt presents with normal cognitive function according to the UMS exam. Pt does not require speech therapy services at this time. Speech Patient Assess Expression of Ideas/Wants: Expression (4) (speech that is clear and) Understanding Verbal Content: Understands (4) Brief Interview-Mental Status: Yes (*Continue to Repetition of) Repetition of Three Words: Three (3) Temporal Orientation: Year: Correct (3) Temporal Orientation: Month: Accurate within 5 days(2) Temporal Orientation: Day: Correct (1) Recall : Wear to say "Sock": Yes, no cue required (2) Recall : Color: Yes, no cue required (2) Recall : Bed: Yes,after cueing (1) Memory/Recall Ability: Current season, Location of own room, That he or she is in a hsp/hsp unit Speech-Plan Treatment Plan Speech Therapy Treatment Plan: Discontinue ST Treatment Duration: Aug 16, 2021 Frequency: Modified Program (IRF) Estimated Hrs Per Day: Other Rehab Potential: Fair Time Speech Therapy Time In: 13:30 Speech Therapy Time Out: 13:45 Billed Treatment Time 1, COGN TEST 15 mins MICH GAMEZ Aug 20, 2021 14:17
[2021-08-20] MEDS: FINASTERIDE (PROSCAR) 5 MG TAB PO SCH (20:25)
[2021-08-20] MEDS: doxAzosin 4 MG (CARDURA) TAB PO SCH (20:25)
[2021-08-20] MEDS: ROSUVASTATIN 10 MG (CRESTOR) TABLET PO SCH (20:25)
--- NOTE | 2021-08-20 20:47 | PM&R Progress Note ---
Subjective HPI/CC On Admission Date Seen by Provider: Aug 20, 2021 Time Seen by Provider: 10:30 Subjective/Events-last exam 08/20/2021: Patient really wants to discharge Very impulsive Patient moving around ad jorge luis. and that has not been approved because he appears to be a fall risk We will discharge to home with [facility] home health soon 08/19/2021: Patient doing well Wants home health at [facility] Elevated blood pressure noted started hydralazine 25 twice daily Bowels moved yesterday Advancing diet Incontinent of bowel and bladder at times No pain is reported 08/18/2021: Patient doing really well Patient still needing to work on areas in order to remain independent Pain is controlled 08/17/2021: Patient dramatically improved Bowel movement occurred No distention of abdomen Advancing diet Hep locking IV fluid Discontinue the catheter 08/16/2021: Patient settling in Still nauseated Dr. Tse will be consulted Abdominal x-ray reviewed Hyponatremia noted at 128 Hemoglobin 8.4 Review of Systems General: Fatigue Musculoskeletal: back pain Objective Exam Vital Signs Vital Signs Date Time Temp Pulse Resp B/P (MAP) Pulse Ox O2 Delivery O2 Flow Rate FiO2 08/20/21 20:49 36.3 74 20 161/77 (105) 96 Room Air 08/19/21 08:22 1.00 Capillary Refill : General Appearance: No Apparent Distress, WD/WN, Chronically ill, Obese, Other (pale) HEENT: PERRL/EOMI, Normal ENT Inspection, Pharynx Normal Neck: Full Range of Motion, Normal Inspection, Non Tender, Supple, Carotid Bruit Respiratory: Chest Non Tender, Lungs Clear, No Accessory Muscle Use, No Respiratory Distress, Decreased Breath Sounds Cardiovascular: Regular Rate, Rhythm, No Edema, No Gallop, No JVD, No Murmur, Normal Peripheral Pulses Gastrointestinal: Normal Bowel Sounds, No Organomegaly, No Pulsatile Mass, Non Tender, Soft Back: Normal Inspection, No CVA Tenderness, No Vertebral Tenderness Extremity: Normal Capillary Refill, Normal Inspection, Normal Range of Motion (limited lower extremities), Non Tender, No Calf Tenderness, No Pedal Edema Neurologic/Psychiatric: Alert, Oriented x3, No Motor/Sensory Deficits, securities attorney II- XII Norm as Tested, Abnormal Gait, Depressed Affect, Motor Weakness (lower legs) Skin: Normal Color, Warm/Dry Lymphatic: No Adenopathy Results/Procedures Lab Patient resulted labs reviewed. FIM Transfers Therapy Code Descriptions/Definitions Functional [place] Measure: 0=Not Assessed/NA 4=Minimal Assistance 1=Total Assistance 5=Supervision or Setup 2=Maximal Assistance 6=Modified [place] 3=Moderate Assistance 7=Complete IndependenceSCALE: Activities may be completed with or without assistive devices. 1-Oblhvuvyhs-nsidxhh completes the activity by him/herself with no assistance fr om a helper. 5-Set-up or Clean-up Assistance-helper sets up or cleans up; patient completes activity. [place] assists only prior to or following the activity. 4-Supervision or Touching Assistance-helper provides verbal cues and/or touching/steadying and/or contact guard assistance as patient completes activity. Assistance may be provided throughout the activity or intermittently. 3-Partial/Moderate Assistance-helper does LESS THAN HALF the effort. [place] lifts, holds or supports trunk or limbs, but provides less than half the effort. 2-Substantial/Maximal Assistance-helper does MORE THAN HALF the effort. [place] lifts or holds trunk or limbs and provides more than half the effort. 7-Vuudlspqp-drusdt does ALL the effort. Patient does none of the effort to complete the activity. Or, the assistance of 2 or more helpers is required for the patient to complete the activity. If activity was not attempted, code reason: 7-Patient Refused. 9-Not Applicable-not attempted and the patient did not perform the activity before the current illness, exacerbation or injury. 10-Not Attempted due to Environmental Limitations-(lack of equipment, weather restraints, etc.). 88-Not Attempted due to Medical Conditions or Safety Concerns. Roll Left to Right (QC): 6 Sit to Lying (QC): 3 Sit to Stand (QC): 4 Chair/Lrs-ho-Qezjh Xfer(QC): 4 Car Transfer (QC): 4 Gait Training Does the Patient Walk?: Yes Distance: 150'x2 Walk 10 feet (QC): 4 Walk 50 ft with 2 Turns(QC): 4 Walk 150 ft (QC): 4 Walking 10ft/uneven surface-QC: 4 Gait Persons Needed: 1 Gait Assistive Device: FWW Wheelchair Training Does the Pt Use a Wheelchair?: Yes Distance: 100'x2 Wheel 50 ft with 2 turns (QC): 9 Wheel 150 ft (QC): 9 Type of Wheelchair: Manual Stair Training Stair Training: Handrails/: 2 handrails #of Steps: 4 1 Step (curb) (QC): 4 4 Steps (QC): 4 12 Steps (QC): 88 Stairs: Pattern: Step to Balance Picking up an Object (QC): 88 ADL-Treatment Eating (QC): 6 (Per clincal judgment ) Oral Hygiene (QC): 6 (Pt completed oral hygiene independently while sitting in w/c at sink. ) Bathing Location: L Arm, R Arm, L Upper Leg, R Upper Leg, L Lower Leg (including foot), R Lower Leg (including foot), Chest, Abdomen, Buttocks, Perineal Area Shower/Bathe Self (QC): 6 (Pt was able to complete shower independently. He required shower bench, long handled sponge, and hand held shower.) Upper Body Dressing (QC): 6 (Pt able to don/doff UB dressing independently.) Lower Body Dressing (QC): 6 (Pt able to thread B LUE into briefs and LB dressing using figure four technique. Sit-stand to FWW to hike LB dressing indpendently. ) On/Off Footwear (QC): 6 (Pt able to don/doff footwear independently while si tting in w/c.) Toileting Hygiene (QC): 6 (Per clincal judgement. ) Toilet Transfer (QC): 6 (Per clincal judgment. ) Assessment/Plan Assessment and Plan Assess & Plan/Chief Complaint Assessment: Status post spinal stenosis surgery by Dr. 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 Ramos Severe nausea and vomiting postoperatively Mccormick cath in place Urinary retention Atrial fibrillation CAD Plan: Inpatient rehab protocol Supportive care Gentle IV fluid 08/16/2021: Supportive care Gentle IV fluid Pain control 08/17/2021: Supportive care DC cath Hep-Lock IV fluid 08/18/2021: Incontinence management Monitor closely 08/19/2021: Supportive care Aggressive rehab 08/20/2021: Monitor impulsiveness Fall risk (1) Spinal stenosis (2) Hepatocellular carcinoma (3) Encounter for monitoring immunomodulating therapy (4) Nausea and vomiting (5) Urinary retention WARREN FARAH DO Aug 20, 2021 20:47
[2021-08-20 20:49] VITALS: BP 161/77
[2021-08-21] MEDS: KCL 20 MEQ TAB (K-DUR) PO SCH (06:28)
[2021-08-21] MEDS: CATHETER FLUSH 10 ML SYR IV SCH ×3 (06:28→19:47)
[2021-08-21] MEDS: ACETAMINOPHEN 325 MG TABLET PO PRN ×2 (06:28→11:54)
[2021-08-21 08:16] VITALS: BP 125/60
--- NOTE | 2021-08-21 08:40 | PM&R Progress Note ---
Subjective HPI/CC On Admission Date Seen by Provider: Aug 21, 2021 Time Seen by Provider: 08:45 Subjective/Events-last exam 08/21/2021: No major events Discharge plan for tomorrow Pulled the drain today MiraLAX ordered Pain is well controlled 08/20/2021: Patient really wants to discharge Very impulsive Patient moving around ad jorge luis. and that has not been approved because he appears to be a fall risk We will discharge to home with [facility] home health soon 08/19/2021: Patient doing well Wants home health at [facility] Elevated blood pressure noted started hydralazine 25 twice daily Bowels moved yesterday Advancing diet Incontinent of bowel and bladder at times No pain is reported 08/18/2021: Patient doing really well Patient still needing to work on areas in order to remain independent Pain is controlled 08/17/2021: Patient dramatically improved Bowel movement occurred No distention of abdomen Advancing diet Hep locking IV fluid Discontinue the catheter 08/16/2021: Patient settling in Still nauseated Dr. Tse will be consulted Abdominal x-ray reviewed Hyponatremia noted at 128 Hemoglobin 8.4 Review of Systems General: Fatigue, Malaise Musculoskeletal: back pain Objective Exam Vital Signs Vital Signs Date Time Temp Pulse Resp B/P (MAP) Pulse Ox O2 Delivery O2 Flow Rate FiO2 08/21/21 20:13 36.7 70 20 128/69 (88) 97 Room Air 08/19/21 08:22 1.00 Capillary Refill : General Appearance: No Apparent Distress, WD/WN, Chronically ill, Obese, Other (pale) HEENT: PERRL/EOMI, Normal ENT Inspection, Pharynx Normal Neck: Full Range of Motion, Normal Inspection, Non Tender, Supple, Carotid Bruit Respiratory: Chest Non Tender, Lungs Clear, No Accessory Muscle Use, No Respiratory Distress, Decreased Breath Sounds Cardiovascular: Regular Rate, Rhythm, No Edema, No Gallop, No JVD, No Murmur, Normal Peripheral Pulses Gastrointestinal: Normal Bowel Sounds, No Organomegaly, No Pulsatile Mass, Non Tender, Soft Back: Normal Inspection, No CVA Tenderness, No Vertebral Tenderness Extremity: Normal Capillary Refill, Normal Inspection, Normal Range of Motion (limited lower extremities), Non Tender, No Calf Tenderness, No Pedal Edema Neurologic/Psychiatric: Alert, Oriented x3, No Motor/Sensory Deficits, 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 FIM Transfers Therapy Code Descriptions/Definitions Functional [place] Measure: 0=Not Assessed/NA 4=Minimal Assistance 1=Total Assistance 5=Supervision or Setup 2=Maximal Assistance 6=Modified [place] 3=Moderate Assistance 7=Complete IndependenceSCALE: Activities may be completed with or without assistive devices. 9-Psirghduoz-oqnwflu completes the activity by him/herself with no assistance f rom a helper. 5-Set-up or Clean-up Assistance-helper sets up or cleans up; patient completes activity. [place] assists only prior to or following the activity. 4-Supervision or Touching Assistance-helper provides verbal cues and/or touching/steadying and/or contact guard assistance as patient completes activity. Assistance may be provided throughout the activity or intermittently. 3-Partial/Moderate Assistance-helper does LESS THAN HALF the effort. [place] lifts, holds or supports trunk or limbs, but provides less than half the effort. 2-Substantial/Maximal Assistance-helper does MORE THAN HALF the effort. [place] lifts or holds trunk or limbs and provides more than half the effort. 3-Ayzwvzyav-oyawho does ALL the effort. Patient does none of the effort to complete the activity. Or, the assistance of 2 or more helpers is required for the patient to complete the activity. If activity was not attempted, code reason: 7-Patient Refused. 9-Not Applicable-not attempted and the patient did not perform the activity before the current illness, exacerbation or injury. 10-Not Attempted due to Environmental Limitations-(lack of equipment, weather restraints, etc.). 88-Not Attempted due to Medical Conditions or Safety Concerns. Roll Left to Right (QC): 6 Sit to Lying (QC): 3 Sit to Stand (QC): 4 Chair/Ptv-ph-Atdgu Xfer(QC): 4 Car Transfer (QC): 4 Gait Training Does the Patient Walk?: Yes Distance: 150'x2 Walk 10 feet (QC): 4 Walk 50 ft with 2 Turns(QC): 4 Walk 150 ft (QC): 4 Walking 10ft/uneven surface-QC: 4 Gait Persons Needed: 1 Gait Assistive Device: FWW Wheelchair Training Does the Pt Use a Wheelchair?: Yes Distance: 100'x2 Wheel 50 ft with 2 turns (QC): 9 Wheel 150 ft (QC): 9 Type of Wheelchair: Manual Stair Training Stair Training: Handrails/: 2 handrails #of Steps: 4 1 Step (curb) (QC): 4 4 Steps (QC): 4 12 Steps (QC): 88 Stairs: Pattern: Step to Balance Picking up an Object (QC): 88 ADL-Treatment Eating (QC): 6 (Per clincal judgment ) Oral Hygiene (QC): 6 (Pt completed oral hygiene independently while sitting in w/c at sink. ) Bathing Location: L Arm, R Arm, L Upper Leg, R Upper Leg, L Lower Leg (including foot), R Lower Leg (including foot), Chest, Abdomen, Buttocks, Perineal Area Shower/Bathe Self (QC): 6 (Pt was able to complete shower independently. He required shower bench, long handled sponge, and hand held shower.) Upper Body Dressing (QC): 6 (Pt able to don/doff UB dressing independently.) Lower Body Dressing (QC): 6 (Pt able to thread B LUE into briefs and LB dressing using figure four technique. Sit-stand to FWW to hike LB dressing indpendently. ) On/Off Footwear (QC): 6 (Pt able to don/doff footwear independently while s itting in w/c.) Toileting Hygiene (QC): 6 (Per clincal judgement. ) Toilet Transfer (QC): 6 (Per clincal judgment. ) Assessment/Plan Assessment and Plan Assess & Plan/Chief Complaint Assessment: Status post spinal stenosis surgery by Dr. 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 Ramos History of hepatitis C 40 years ago Severe nausea and vomiting postoperatively Mccormick cath in place Urinary retention Atrial fibrillation CAD Plan: Inpatient rehab protocol Supportive care Gentle IV fluid 08/16/2021: Supportive care Gentle IV fluid Pain control 08/17/2021: Supportive care DC cath Hep-Lock IV fluid 08/18/2021: Incontinence management Monitor closely 08/19/2021: Supportive care Aggressive rehab 08/20/2021: Monitor impulsiveness Fall risk 08/21/2021: Discharge plan tomorrow (1) Spinal stenosis (2) Hepatocellular carcinoma (3) Encounter for monitoring immunomodulating therapy (4) Nausea and vomiting (5) Urinary retention WARREN FARAH DO Aug 21, 2021 08:40
[2021-08-21] MEDS: AMIODARONE 200 MG (CORDARONE) TAB PO SCH (09:06)
[2021-08-21] MEDS: SENNA W/DOCUSATE (SENOKOT S) TABLET PO SCH ×2 (09:06→19:45)
[2021-08-21] MEDS: polyethylene glycoL POWDER 17 GM (MIRALAX) PACK PO SCH ×2 (09:06→19:44)
[2021-08-21] MEDS: LOSARTAN 50 MG (COZAAR) TAB PO SCH (09:06)
[2021-08-21] MEDS: FLUTICASONE NASAL SPRAY (FLONASE) 16 GM BTL NS SCH (09:06)
[2021-08-21] MEDS: amLODIPine 5 MG (NORVASC) TAB PO SCH (09:07)
[2021-08-21] MEDS: GABAPENTIN 300 MG (NEURONTIN) CAP PO SCH ×3 (09:07→19:45)
[2021-08-21] MEDS: ASPIRIN E.C. 81 MG (ECOTRIN) TAB PO SCH (09:07)
[2021-08-21] MEDS: hydrALAZINE (APRESOLINE) 25 MG TAB PO SCH ×2 (09:07→19:45)
[2021-08-21] MEDS: DOCUSATE SODIUM 100 MG (COLACE) CAP PO SCH ×2 (09:07→19:45)
[2021-08-21] MEDS: DICLOFENAC 1% GEL 100 GM (VOLTAREN) TUBE TP SCH ×4 (09:08→19:47)
[2021-08-21] MEDS: HYDROCORTISONE 2.5% CREAM (ANUSOL-HC) 30 GM TOP SCH ×2 (09:10→19:47)
--- NOTE | 2021-08-21 09:15 | Occupational Ther Daily Note ---
OT Current Status-Daily Note Subjective Pt alert, laying in bed when therapy entered. Pt agreed to therapy. No c/o pain reported. Mental Status/Objective Patient Orientation: Person, Place, Time, Situation ADL-Treatment Pt donned/doffed back brace after reminder. Pt sit-stand from EOB-FWW and a mbulated to bathroom. Pt completed oral hygiene and brushing hair independently while standing at sink with FWW independently. Therapy Code Descriptions/Definitions Functional [place] Measure: 0=Not Assessed/NA 4=Minimal Assistance 1=Total Assistance 5=Supervision or Setup 2=Maximal Assistance 6=Modified [place] 3=Moderate Assistance 7=Complete IndependenceSCALE: Activities may be completed with or without assistive devices. 1-Qqgxjhzkyr-xeiackq completes the activity by him/herself with no assistance from a helper. 5-Set-up or Clean-up Assistance-helper sets up or cleans up; patient completes activity. [place] assists only prior to or following the activity. 4-Supervision or Touching Assistance-helper provides verbal cues and/or touching/steadying and/or contact guard assistance as patient completes activity. Assistance may be provided throughout the activity or intermittently. 3-Partial/Moderate Assistance-helper does LESS THAN HALF the effort. [place] lifts, holds or supports trunk or limbs, but provides less than half the effort. 2-Substantial/Maximal Assistance-helper does MORE THAN HALF the effort. [place] lifts or holds trunk or limbs and provides more than half the effort. 8-Ytpptwudo-mxytjn does ALL the effort. Patient does none of the effort to complete the activity. Or, the assistance of 2 or more helpers is required for the patient to complete the activity. If activity was not attempted, code reason: 7-Patient Refused. 9-Not Applicable-not attempted and the patient did not perform the activity before the current illness, exacerbation or injury. 10-Not Attempted due to Environmental Limitations-(lack of equipment, weather restraints, etc.). 88-Not Attempted due to Medical Conditions or Safety Concerns. Other Treatment Pt ambulated to gym using FWW independently. Once in gym, skilled instruction provided of B UE weighted exercises for correct completion. Pt participated in x2 sets of 10 reps of 3 lb BUE exercises while sitting in chair to increase BUE strength for improved independence with daily task. Pt required resting break during task due to decreased strength and fatigue. Pt participated in FM task of reaching across midline to grasp clothespins and place them around container while seated in chair to improve UE ROM and FM skills for safe and functional completion of daily task. Pt participated in dynamic standing activity of hitting balloon x15 with BUE outside base of support while using FWW for improved standing tolerance and balance to increase independence with ADLs. Pt r equired resting break before heading back to room due fatigue and decreased standing tolerance. Pt ambulated back to room using FWW and transferred to EOB. Pt required min A to swing LB onto bed. After therapy, pt laying in bed. Call light in reach. All needs met. Education OT Patient Education: Exercise program Teaching Recipient: Patient Teaching Methods: Demonstration, Discussion Response to Teaching: Verbalize Understanding, Return Demonstration OT Short Term Goals Short Term Goals Time Frame: Aug 29, 2021 Eatin Oral hygiene: 5 Toileting hygiene: 3 (min) Shower/bathe self: 3 (min) Upper body dressin Lower body dressin Putting on/taking off footwear: 3 OT Bow Rehairer Goals Bow Rehairer Goals Time Frame: Sep 05, 2021 Eating (QC): 6 (Met) Oral Hygiene (QC): 6 (Met) Toileting Hygiene (QC): 6 (Met) Shower/Bathe Self (QC): 4 (Met) Upper Body Dressing (QC): 5 (Met) Lower Body Dressing (QC): 4 (Met) On/Off Footwear (QC): 5 (Met) 1=Demonstrate adherence to instructed precautions during ADL tasks. 2=Patient will verbalize/demonstrate understanding of assistive devices/modifications for ADL. 3=Patient will improve strength/tolerance for activity to enable patient to perform ADL's. OT Education/Plan Problem List/Assessment Assessment: Impaired Self-Care Skills Discharge Recommendations Plan/Recommendations: Continue POC Treatment Plan/Plan of Care Patient would benefit from OT for education, treatment and training to promote independence in ADL's, mobility, safety and/or upper extremity function for ADL's. Plan of Care: ADL Retraining, Functional Mobility, Group Exercise/Act as Ind, Orthotic Fitting/Training, UE Funct Exercise/Act, W/C Management Training Treatment Duration: Sep 05, 2021 Frequency: At least 5 of 7 days/Wk (IRF) Estimated Hrs Per Day: 1.5 hours per day Agreement: Yes Rehab Potential: Fair Time/GCodes Start Time: 08:00 Stop Time: 09:00 Total Time Billed (hr/min): 60 Billed Treatment Time 1 visit- ADL 1 (8 mins) EX 1 (16 mins) FA 2 (36 min) MARTIN GASTELUM Aug 21, 2021 09:15
--- NOTE | 2021-08-21 10:00 | Physical Therapy Daily Note ---
PT Daily Note-Current Subjective Pt in bed upon arrival and agrees to tx, pt has slight pain in lower back but doesn't rate out of 10. Mental Status Patient Orientation: Person, Place, Time, Situation Transfers SCALE: Activities may be completed with or without assistive devices. 9-Kdcnkajbjo-sjdeqhc completes the activity by him/herself with no assistance from a helper. 5-Set-up or Clean-up Assistance-helper sets up or cleans up; patient completes activity. [place] assists only prior to or following the activity. 4-Supervision or Touching Assistance-helper provides verbal cues and/or touching/steadying and/or contact guard assistance as patient completes activity. Assistance may be provided throughout the activity or intermittently. 3-Partial/Moderate Assistance-helper does LESS THAN HALF the effort. [place] lifts, holds or supports trunk or limbs, but provides less than half the effort. 2-Substantial/Maximal Assistance-helper does MORE THAN HALF the effort. [place] lifts or holds trunk or limbs and provides more than half the effort. 3-Lepwcwyii-jnjucl does ALL the effort. Patient does none of the effort to complete the activity. Or, the assistance of 2 or more helpers is required for the patient to complete the activity. If activity was not attempted, code reason: 7-Patient Refused. 9-Not Applicable-not attempted and the patient did not perform the activity before the current illness, exacerbation or injury. 10-Not Attempted due to Environmental Limitations-(lack of equipment, weather restraints, etc.). 88-Not Attempted due to Medical Conditions or Safety Concerns. Sit to Lying (QC): 3 Lying to Sitting/Side of Bed(Q: 4 Sit to Stand (QC): 4 Gait Training Does the Patient Walk?: Yes Distance: 300' x2 Walk 10 feet (QC): 5 Walk 50 ft with 2 Turns(QC): 5 Walk 150 ft (QC): 5 Gait Assistive Device: FWW Pt has steady gait with no deviations noted at this time. Exercises NuStep Minutes: 15 NuStep Workload: 5 Treatments Pt supine to sit CGA, using bed railing to pull up. Sit to stand and amb 300' on ARU to NuStep in therapy gym. Pt completes NuStep on WL of 5 for 15 minutes. Pt completes static standing balance training on AirEx, holding stance for 60 seconds unsupported from UE, requires CGA/Justo for steadiness. Pt completes 90 seconds w/ eyes closed on AirEx, unsupported from UE and Justo. Pt then amb another 300' back to room and returns to bed. Pt remains in bed with all needs met, call light in hand. Assessment Current Status: Good Progress Pt overall increasing strength, endurance, and balance. PT Short Term Goals Short Term Goals Time Frame: Aug 22, 2021 Roll Left & Right: 4 Sit to lyin Lying to sitting on side of be: 3 Sit to stand: 4 Chair/jwy-fz-zbwrt transfer: 4 Walk 10 feet: 4 Walk 50 feet with two turns: 4 PT Halfway Goals Resin Shaver Goals PT Halfway Goals Time Frame: Sep 05, 2021 Roll Left & Right (QC): 4 Sit to Lying (QC): 4 Lying-Sitting on Side/Bed(QC): 4 Sit to Stand (QC): 4 Chair/Szu-dq-Afrdc Xfer(QC): 4 Toilet Transfer (QC): 4 Car Transfer (QC): 4 Does the Patient Walk: Yes Walk 10 feet (QC): 4 Walk 50ft with 2 Turns (QC): 4 Walk 150 ft (QC): 4 Walking 10ft on Uneven Surface: 4 1 Step (curb) (QC): 4 4 Steps (QC): 4 12 Steps (QC): 88 Picking up an Object (QC): 88 Wheel 50 feet with 2 turns (QC: 9 Wheel 150 feet: 9 PT Plan Treatment/Plan Treatment Plan: Continue Plan of Care Treatment Plan: Bed Mobility, Education, Functional Activity Itzel, Functional Strength, Group Therapy, Gait, Safety, Therapeutic Exercise, Transfers Treatment Duration: Sep 05, 2021 Frequency: At least 5 of 7 days/Wk (IRF) Estimated Hrs Per Day: 1.5 hours per day Patient and/or Family Agrees t: Yes Time/GCodes Time In: 900 Time Out: 1000 Total Billed Treatment Time: 60 Total Billed Treatment 1, Ex, NM, GT x2 CORREA,WILY PRODUCT MARKETING CONSULTANT Aug 21, 2021 10:00
--- NOTE | 2021-08-21 12:54 | Physical Therapy Daily Note ---
PT Daily Note-Current Subjective Pt in recliner upon arrival and agrees to PT. Pt reports he is having low back pain and it is between a 5 or a 6. Pain Numeric Pain Scale: 6 Location Body Site: Back Mental Status Patient Orientation: Person, Place, Time, Situation Attachments: Other-See Comments (mask while out of room) Transfers SCALE: Activities may be completed with or without assistive devices. 3-Jagogmfufr-jchtqvt completes the activity by him/herself with no assistance from a helper. 5-Set-up or Clean-up Assistance-helper sets up or cleans up; patient completes activity. [place] assists only prior to or following the activity. 4-Supervision or Touching Assistance-helper provides verbal cues and/or touching/steadying and/or contact guard assistance as patient completes activity. Assistance may be provided throughout the activity or intermittently. 3-Partial/Moderate Assistance-helper does LESS THAN HALF the effort. [place] lif ts, holds or supports trunk or limbs, but provides less than half the effort. 2-Substantial/Maximal Assistance-helper does MORE THAN HALF the effort. [place] lifts or holds trunk or limbs and provides more than half the effort. 1-Zgkuhgtau-sabqkn does ALL the effort. Patient does none of the effort to complete the activity. Or, the assistance of 2 or more helpers is required for the patient to complete the activity. If activity was not attempted, code reason: 7-Patient Refused. 9-Not Applicable-not attempted and the patient did not perform the activity before the current illness, exacerbation or injury. 10-Not Attempted due to Environmental Limitations-(lack of equipment, weather restraints, etc.). 88-Not Attempted due to Medical Conditions or Safety Concerns. Sit to Stand (QC): 5 Gait Training Does the Patient Walk?: Yes Distance: 100' x 2 Walk 10 feet (QC): 5 Walk 50 ft with 2 Turns(QC): 5 Gait Assistive Device: FWW Exercises Standin way Ex=Flex, Abd, Ext, Mini squats Standing Reps: 10 Treatments Pt in recliner upon arrival and performs sit to stand TF. Then amb from room 100' to therapy gym and requires brief rest break before performing standing exs. Pt required CGA while performing standing exs for stabilization and safety. Performs standing exs in // bars then amb from therapy gym 100' back to pt room. Pt TF back to recliner and call light in hand and all needs met. Assessment Current Status: Good Progress Pt requires brief rest breaks between ambulation and standing d/t slightly diminished endurance. PT Short Term Goals Short Term Goals Time Frame: Aug 22, 2021 Roll Left & Right: 4 Sit to lyin Lying to sitting on side of be: 3 Sit to stand: 4 Chair/tet-ir-fdxqq transfer: 4 Walk 10 feet: 4 Walk 50 feet with two turns: 4 PT Associate Manager Affiliate Marketing Goals Associate Manager Affiliate Marketing Goals PT Associate Manager Aff[employer]ate Marketing Goals Time Frame: Sep 05, 2021 Roll Left & Right (QC): 4 Sit to Lying (QC): 4 Lying-Sitting on Side/Bed(QC): 4 Sit to Stand (QC): 4 Chair/Tpx-ny-Zytor Xfer(QC): 4 Toilet Transfer (QC): 4 Car Transfer (QC): 4 Does the Patient Walk: Yes Walk 10 feet (QC): 4 Walk 50ft with 2 Turns (QC): 4 Walk 150 ft (QC): 4 Walking 10ft on Uneven Surface: 4 1 Step (curb) (QC): 4 4 Steps (QC): 4 12 Steps (QC): 88 Picking up an Object (QC): 88 Wheel 50 feet with 2 turns (QC: 9 Wheel 150 feet: 9 PT Plan Treatment/Plan Treatment Plan: Continue Plan of Care Treatment Plan: Bed Mobility, Education, Functional Activity Itzel, Functional Strength, Group Therapy, Gait, Safety, Therapeutic Exercise, Transfers Treatment Duration: Sep 05, 2021 Frequency: At least 5 of 7 days/Wk (IRF) Estimated Hrs Per Day: 1.5 hours per day Patient and/or Family Agrees t: Yes Time/GCodes Time In: 1130 Time Out: 1200 Total Billed Treatment Time: 30 Total Billed Treatment 1, GT, EX JONATHAN SEQUEIRA CORE SHAPER TOP Aug 21, 2021 12:54
--- NOTE | 2021-08-21 14:15 | Occupational Ther Daily Note ---
OT Current Status-Daily Note Subjective Pt laying in bed when therapy entered. Pt agreed to therapy. No c/o pain reported. Mental Status/Objective Patient Orientation: Person, Place, Time, Situation Attachments: IV ADL-Treatment Pt was able to don/doff back brace. Pt transferred from EOB to FWW and ambulated to toilet independently. Pt completed toilet transfer independently. Pt used grab bars to sit-stand from toilet and hiked LB dressing. Pt ambulated to gym using FWW independently. Therapy Code Descriptions/Definitions Functional [place] Measure: 0=Not Assessed/NA 4=Minimal Assistance 1=Total Assistance 5=Supervision or Setup 2=Maximal Assistance 6=Modified [place] 3=Moderate Assistance 7=Complete IndependenceSCALE: Activities may be completed with or without assistive devices. 7-Fyirlpnfrz-jzhvtpv completes the activity by him/herself with no assistance from a helper. 5-Set-up or Clean-up Assistance-helper sets up or cleans up; patient completes activity. [place] assists only prior to or following the activity. 4-Supervision or Touching Assistance-helper provides verbal cues and/or touching/steadying and/or contact guard assistance as patient completes activi ty. Assistance may be provided throughout the activity or intermittently. 3-Partial/Moderate Assistance-helper does LESS THAN HALF the effort. [place] lifts, holds or supports trunk or limbs, but provides less than half the effort. 2-Substantial/Maximal Assistance-helper does MORE THAN HALF the effort. [place] lifts or holds trunk or limbs and provides more than half the effort. 7-Jrpxjibcz-vzgcog does ALL the effort. Patient does none of the effort to complete the activity. Or, the assistance of 2 or more helpers is required for the patient to complete the activity. If activity was not attempted, code reason: 7-Patient Refused. 9-Not Applicable-not attempted and the patient did not perform the activity before the current illness, exacerbation or injury. 10-Not Attempted due to Environmental Limitations-(lack of equipment, weather restraints, etc.). 88-Not Attempted due to Medical Conditions or Safety Concerns. Other Treatment Pt participated in ROM activity of grasping rings and transferring them across arc while standing and sitting to increase dynamic standing balance and B UE ROM for improved independence in self care task. Pt was able to tolerate x2 of transferring rings across arc while standing before requesting to sit due to fatigue. Pt ambulated back to room using FWW independently. Pt transferred to EOB and required min A to swing LE onto bed. After therapy, pt laying in bed. Call light in reach and all needs met. Education OT Patient Education: Energy conservation Teaching Recipient: Patient Teaching Methods: Discussion Response to Teaching: Verbalize Understanding, Return Demonstration OT Short Term Goals Short Term Goals Time Frame: Aug 29, 2021 Eatin Oral hygiene: 5 Toileting hygiene: 3 (min) Shower/bathe self: 3 (min) Upper body dressin Lower body dressin Putting on/taking off footwear: 3 OT [employer] Coating Machine Setter Goals Group Home Goals Time Frame: Sep 05, 2021 Eating (QC): 6 (Met) Oral Hygiene (QC): 6 (Met) Toileting Hygiene (QC): 6 (Met) Shower/Bathe Self (QC): 4 (Met) Upper Body Dressing (QC): 5 (Met) Lower Body Dressing (QC): 4 (Met) On/Off Footwear (QC): 5 (Met) 1=Demonstrate adherence to instructed precautions during ADL tasks. 2=Patient will verbalize/demonstrate understanding of assistive devices/modifications for ADL. 3=Patient will improve strength/tolerance for activity to enable patient to perform ADL's. OT Education/Plan Problem List/Assessment Assessment: Impaired Self-Care Skills Discharge Recommendations Plan/Recommendations: Continue POC Treatment Plan/Plan of Care Patient would benefit from OT for education, treatment and training to promote independence in ADL's, mobility, safety and/or upper extremity function for ADL's. Plan of Care: ADL Retraining, Functional Mobility, Group Exercise/Act as Ind, Orthotic Fitting/Training, UE Funct Exercise/Act, W/C Management Training Treatment Duration: Sep 05, 2021 Frequency: At least 5 of 7 days/Wk (IRF) Estimated Hrs Per Day: 1.5 hours per day Agreement: Yes Rehab Potential: Fair Time/GCodes Start Time: 13:00 Stop Time: 13:30 Total Time Billed (hr/min): 30 Billed Treatment Time 1 visit- EX 2 (30min) MARTIN GASTELUM Aug 21, 2021 14:15
[2021-08-21] MEDS: ROSUVASTATIN 10 MG (CRESTOR) TABLET PO SCH (19:45)
[2021-08-21] MEDS: FINASTERIDE (PROSCAR) 5 MG TAB PO SCH (19:45)
[2021-08-21] MEDS: doxAzosin 4 MG (CARDURA) TAB PO SCH (19:45)
[2021-08-21 20:13] VITALS: BP 128/69
[2021-08-22] MEDS ORDERED: HYDR-3923 PO (05:34)
[2021-08-22] MEDS ORDERED: ROSU10TA28 PO (05:34)
[2021-08-22] MEDS ORDERED: HYDR30CR69 TOP (05:34)
[2021-08-22] MEDS ORDERED: POTA20TA8 PO (05:34)
[2021-08-22] MEDS ORDERED: OXYC15TA56 PO (05:34)
--- NOTE | 2021-08-22 05:36 | D/C HH Face to Face Order ---
D/C Face to Face Orders Reconcile Patient Problems Problems Reviewed?: Yes Instructions for Patient [facility] Patient Instructions/FollowUp: PCP [address] Hoang as scheduled Physician to follow Patient: PCP Discharge Diet for Home: No Restrictions Patient Problems: Lumbar spine surgery s/p ileus Patient Data-Allergies,Ht & Wt Patient Allergies: Coded Allergies: fenofibrate (Verified Allergy, Unknown, 08/15/21) Home Health Need/Face to Face Date of Face to Face: Aug 22, 2021 Clinical Findings: Generalized weakness and fatigue, Instability, Muscle weakness, Unsteady gait I have seen Pt wkuy-nq-qqgl: Yes Discharged To: Home Diagnosis/Conditions: spine surgery Patient is Homebound due to: Terry fall risk due to instabilty, Muscle weakness Homebound Status Due to the above stated illness, injury or surgical procedure (medical condition or diagnosis) and associated clinical findings, the patient is homebound because of his/her inability to leave home except with aid of a supportive device and/or person AND leaving the home requires a considerable and taxing effort or is medically contraindicated. Pt req the following assistanc: Walker Home Health Nursing Orders Home Health Services Order: Nursing Services, Cancer Center Director-Evaluate & Treat, Physical Therapy-Evaluate & Treat Certify Stmt I certify that this patient is under my care and that I, a nurse practitioner or a physician; a data analysis assistant working with me, had a face to face encounter that - meets the physician face to face encounter requirements with this patient as dated. WARREN FARAH DO Aug 22, 2021 05:36
--- NOTE | 2021-08-22 05:36 | Discharge Summary ---
Diagnosis/Chief Complaint Date of Admission Aug 15, 2021 at 14:30 Date of Discharge Discharge Date: Aug 22, 2021 Discharge Diagnosis Assessment: Status post spinal stenosis surgery by Dr. 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 Ramos History of hepatitis C 40 years ago Severe nausea and vomiting postoperatively Mccormick cath in place Urinary retention Atrial fibrillation CAD Plan: Inpatient rehab protocol Supportive care Gentle IV fluid 08/16/2021: Supportive care Gentle IV fluid Pain control 08/17/2021: Supportive care DC cath Hep-Lock IV fluid 08/18/2021: Incontinence management Monitor closely 08/19/2021: Supportive care Aggressive rehab 08/20/2021: Monitor impulsiveness Fall risk 08/21/2021: Discharge plan tomorrow (1) Spinal stenosis (2) Hepatocellular carcinoma (3) Encounter for monitoring immunomodulating therapy (4) Nausea and vomiting (5) Urinary retention Discharge Summary Discharge Physical Examination Allergies: Coded Allergies: fenofibrate (Verified Allergy, Unknown, 08/15/21) Vitals & I&Os Vital Signs Date Time Temp Pulse Resp B/P (MAP) Pulse Ox O2 Delivery O2 Flow Rate FiO2 08/22/21 10:00 36.7 76 18 124/58 97 Room Air 08/19/21 08:22 1.00 General Appearance: Alert, Oriented X3, Cooperative Respiratory: Clear to Auscultation Cardiovascular: Regular Rate Neuro: Strength at 5/5 X4 Ext Psych/Mental Status: Mental Status NL Hospital Course Was the Problem List Reviewed?: Yes Hospital course: Patient had an uneventful short hospital course in inpatient rehab after moved from [facility] following extensive lumbar spine surgery but had very slow recovery with complications of postop ileus and urinary retention requiring Mccormick catheter. Dr. Tse was consulted patient ultimately required Reglan IV and all images confirmed ileus. That eventually resolved bowels returned back to normal pain was well controlled urinary retention resolved and he was voiding normally. Overall he was doing very well and was able to be discharged in improved condition. Labs (last 24 hrs) Laboratory Tests 08/16/21 05:40: White Blood Count 4.8, Red Blood Count 2.78L, Hemoglobin 8.4L, Hematocrit 25L, Mean Corpuscular Volume 90, Mean Corpuscular Hemoglobin 30, Mean Corpuscular Hemoglobin Concent 34, Red Cell Distribution Width 13.5, Platelet Count 94L, Mean Platelet Volume 8.6L, Immature Granulocyte % (Auto) 1, Neutrophils (%) (Auto) 75, Lymphocytes (%) (Auto) 9L, Monocytes (%) (Auto) 15H, Eosinophils (%) (Auto) 0, Basophils (%) (Auto) 0, Neutrophils # (Auto) 3.7, Lymphocytes # (Auto) 0.4L, Monocytes # (Auto) 0.7, Eosinophils # (Auto) 0.0, Basophils # (Auto) 0.0, Immature Granulocyte # (Auto) 0.0, Percent Immature Platelet Fraction 1.4, Sodium Level 128L, Potassium Level 4.0, Chloride Level 98, Carbon Dioxide Level 23, Anion Gap 7, Blood Urea Nitrogen 15, Creatinine 0.64, Estimat Glomerular Filtration Rate 120, BUN/Creatinine Ratio 23, Glucose Level 109H, Calcium Level 7.8L, Corrected Calcium 8.4L, Total Bilirubin 1.3H, Aspartate Amino Transf (AST/SGOT) 30, Alanine Aminotransferase (ALT/SGPT) 21, Alkaline Phosphatase 43, Total Protein 5.4L, Albumin 3.2 08/19/21 05:21: White Blood Count 4.6, Red Blood Count 2.90L, Hemoglobin 8.7L, Hematocrit 26L, Mean Corpuscular Volume 90, Mean Corpuscular Hemoglobin 30, Mean Corpuscular Hemoglobin Concent 34, Red Cell Distribution Width 13.3, Platelet Count 147, Mean Platelet Volume 9.1, Immature Granulocyte % (Auto) 4, Neutrophils (%) (Auto) 64, Lymphocytes (%) (Auto) 17, Monocytes (%) (Auto) 12, Eosinophils (%) (Auto) 4, Basophils (%) (Auto) 0, Neutrophils # (Auto) 3.0, Lymphocytes # (Auto) 0.8L, Monocytes # (Auto) 0.6, Eosinophils # (Auto) 0.2, Basophils # (Auto) 0.0, Immature Granulocyte # (Auto) 0.2H 08/19/21 05:25: Sodium Level 133L, Potassium Level 3.5L, Chloride Level 98, Carbon Dioxide Level 24, Anion Gap 11, Blood Urea Nitrogen 9, Creatinine 0.61, Estimat Glomerular Filtration Rate 127, BUN/Creatinine Ratio 15, Glucose Level 95, Calcium Level 8.5, Corrected Calcium 8.8, Total Bilirubin 0.9, Aspartate Amino Transf (AST/SGOT) 27, Alanine Aminotransferase (ALT/SGPT) 21, Alkaline Phosphatase 50, Total Protein 6.1L, Albumin 3.6 Pending Labs Laboratory Tests 08/16/21 05:40: White Blood Count 4.8, Red Blood Count 2.78, Hemoglobin 8.4, Hematocrit 25, Mean Corpuscular Volume 90, Mean Corpuscular Hemoglobin 30, Mean Corpuscular He moglobin Concent 34, Red Cell Distribution Width 13.5, Platelet Count 94, Mean Platelet Volume 8.6, Immature Granulocyte % (Auto) 1, Neutrophils (%) (Auto) 75, Lymphocytes (%) (Auto) 9, Monocytes (%) (Auto) 15, Eosinophils (%) (Auto) 0, Basophils (%) (Auto) 0, Neutrophils # (Auto) 3.7, Lymphocytes # (Auto) 0.4, Monocytes # (Auto) 0.7, Eosinophils # (Auto) 0.0, Basophils # (Auto) 0.0, Immature Granulocyte # (Auto) 0.0, Percent Immature Platelet Fraction 1.4, Sodium Level 128, Potassium Level 4.0, Chloride Level 98, Carbon Dioxide Level 23, Anion Gap 7, Blood Urea Nitrogen 15, Creatinine 0.64, Estimat Glomerular Filtration Rate 120, BUN/Creatinine Ratio 23, Glucose Level 109, Calcium Level 7.8, Corrected Calcium 8.4, Total Bilirubin 1.3, Aspartate Amino Transf (AST/SGOT) 30, Alanine Aminotransferase (ALT/SGPT) 21, Alkaline Phosphatase 43, Total Protein 5.4, Albumin 3.2 08/19/21 05:21: White Blood Count 4.6, Red Blood Count 2.90, Hemoglobin 8.7, Hematocrit 26, Mean Corpuscular Volume 90, Mean Corpuscular Hemoglobin 30, Mean Corpuscular Hemoglobin Concent 34, Red Cell Distribution Width 13.3, Platelet Count 147, Mean Platelet Volume 9.1, Immature Granulocyte % (Auto) 4, Neutrophils (%) (Auto) 64, Lymphocytes (%) (Auto) 17, Monocytes (%) (Auto) 12, Eosinophils (%) (Auto) 4, Basophils (%) (Auto) 0, Neutrophils # (Auto) 3.0, Lymphocytes # (Auto) 0.8, Monocytes # (Auto) 0.6, Eosinophils # (Auto) 0.2, Basophils # (Auto) 0.0, Immature Granulocyte # (Auto) 0.2 08/19/21 05:25: Sodium Level 133, Potassium Level 3.5, Chloride Level 98, Carbon Dioxide Level 24, Anion Gap 11, Blood Urea Nitrogen 9, Creatinine 0.61, Estimat Glomerular Filtration Rate 127, BUN/Creatinine Ratio 15, Glucose Level 95, Calcium Level 8.5, Corrected Calcium 8.8, Total Bilirubin 0.9, Aspartate Amino Transf (AST/SGOT) 27, Alanine Aminotransferase (ALT/SGPT) 21, Alkaline Phosphatase 50, Total Protein 6.1, Albumin 3.6 Discharge Home Medications: Active Scripts Active Proctozone-Hc (Hydrocortisone) 30 Gm Cream.appl 0 Gm TOP BID Klor-Con M20 (Potassium Chloride) 20 Meq Tab.er.prt 20 Meq PO DAILY@0700 Hydralazine HCl 25 Mg Tablet 25 Mg PO BID Rosuvastatin Calcium 10 Mg Tablet 10 Mg PO HS Roxicodone (Oxycodone HCl) 15 Mg Tablet 15 Mg PO Q6H PRN Reported Vitamin D3 (Cholecalciferol (Vitamin D3)) 25 Mcg Capsule 25 Mcg PO DAILY Vitamin C (Ascorbic Acid) 1,000 Mg Tablet 1,000 Mg PO DAILY Trazodone HCl 50 Mg Tablet 50 Mg PO HS PRN Spironolactone 25 Mg Tablet 25 Mg PO DAILY PRN Pantoprazole Sodium 20 Mg Tablet.dr 20 Mg PO DAILY PRN Multivitamin 1 Each Tablet 1 Each PO DAILY Losartan Potassium 50 Mg Tablet 50 Mg PO DAILY Neurontin (Gabapentin) 300 Mg Capsule 300 Mg PO TID Furosemide 40 Mg Tablet 40 Mg PO DAILY PRN Flonase Allergy Relief (Fluticasone Propionate) 9.9 Ml [place].susp 2 [place] NSEACH DAILY Finasteride 5 Mg Tablet 5 Mg PO HS Ferrous Sulfate 324 Mg Tablet.dr 324 Mg PO DAILY Doxazosin Mesylate 8 Mg Tablet 8 Mg PO HS Voltaren Arthritis Pain (Diclofenac Sodium) 20 Gm Gel..gram. 1 Applic TP QID Aspirin EC (Aspirin) 81 Mg Tablet.dr 81 Mg PO DAILY Amlodipine Besylate 5 Mg Tablet 5 Mg PO DAILY Amiodarone HCl 200 Mg Tablet 200 Mg PO DAILY Miralax (Polyethylene Glycol 3350) 17 Gm Powd.pack 17 Gm PO Q12H Ondansetron Odt (Ondansetron) 4 Mg Tab.rapdis 4 Mg PO Q6H PRN Tylenol (Acetaminophen) 325 Mg Capsule 650 Mg PO Q6H PRN Instructions to patient/family Please see electronic discharge instructions given to patient. Diagnosis/Problems Diagnosis/Problems (1) Spinal stenosis (2) Hepatocellular carcinoma (3) Encounter for monitoring immunomodulating therapy (4) Nausea and vomiting (5) Urinary retention WARREN FARAH DO Aug 22, 2021 05:36
[2021-08-22] MEDS: CATHETER FLUSH 10 ML SYR IV SCH (06:44)
[2021-08-22] MEDS: KCL 20 MEQ TAB (K-DUR) PO SCH ×2 (06:44→07:40)
[2021-08-22 07:37] VITALS: BP 124/58
[2021-08-22] MEDS: AMIODARONE 200 MG (CORDARONE) TAB PO SCH (07:40)
[2021-08-22] MEDS: ASPIRIN E.C. 81 MG (ECOTRIN) TAB PO SCH (07:40)
[2021-08-22] MEDS: GABAPENTIN 300 MG (NEURONTIN) CAP PO SCH (07:40)
[2021-08-22] MEDS: amLODIPine 5 MG (NORVASC) TAB PO SCH (07:40)
[2021-08-22] MEDS: hydrALAZINE (APRESOLINE) 25 MG TAB PO SCH (07:40)
[2021-08-22] MEDS: LOSARTAN 50 MG (COZAAR) TAB PO SCH (07:40)
[2021-08-22] MEDS: ACETAMINOPHEN 325 MG TABLET PO PRN (07:41)
[2021-08-22] MEDS: FLUTICASONE NASAL SPRAY (FLONASE) 16 GM BTL NS SCH (07:43)
[2021-08-22] MEDS: DICLOFENAC 1% GEL 100 GM (VOLTAREN) TUBE TP SCH (07:43)
[2021-08-22] MEDS: HYDROCORTISONE 2.5% CREAM (ANUSOL-HC) 30 GM TOP SCH (07:44)
[2021-08-22] MEDS: SENNA W/DOCUSATE (SENOKOT S) TABLET PO SCH (08:51)
[2021-08-22] MEDS: polyethylene glycoL POWDER 17 GM (MIRALAX) PACK PO SCH (08:51)
[2021-08-22] MEDS: DOCUSATE SODIUM 100 MG (COLACE) CAP PO SCH (08:51)
[2021-08-22 10:00] VITALS: BP 124/58
--- NOTE | 2021-08-22 15:31 | Therapy Team Discharge Summary ---
Therapy Discharge Summary Discharge Recommendations Date of Discharge Aug 22, 2021 at 10:11 Therapy D/C Recommendations: Home w/ Family Support Occupational Therapy Pt direct admit from [facility]. S/P L4-S1, TLIF, PSF with L5-S1 Yusuf laminectomy, and L4-5 decompression. On evaluation, pt was min-mod a for oral hygiene, bathing, upper body dressing, max a for toileting and lower body dressing, and dependent for footwear. While on rehab, OT focused on improving balance, strength, compensatory strategies, adherence to spinal precautions, functional transfers, endurance, and pain management. Pt made good progress and met all of his goals while he was here. Pt is now mod I for all adls and functional transfers with good adherence to spinal precautions. Pt d/c from this facility and is now discharged from OT. Impaired Self-Care Skills PT Mcc Goals Physical Education Specialist Goals PT Physical Education Specialist Goals Time Frame: Sep 05, 2021 Roll Left to Right (QC): 4 Sit to Lying (QC): 4 Lying-Sitting on Side/Bed(QC): 4 Sit to Stand (QC): 4 Chair/Hjk-to-Kxtyi Xfer(QC): 4 Car Transfer (QC): 4 Does the Patient Walk: Yes Walk 10 feet (QC): 4 Walk 10ft-Uneven Surface(QC): 4 Walk 50ft with 2 Turns (QC): 4 Walk 150 ft (QC): 4 Wheel 50 feet with 2 turns (QC: 9 1 Step (curb) (QC): 4 4 Steps (QC): 4 12 Steps (QC): 88 Picking up an Object (QC): 88 OT Physical Education Specialist Goals Mcc Goals Time Frame: Sep 05, 2021 Eating (QC): 6 (Met) Oral Hygiene (QC): 6 (Met) Shower/Bathe Self (QC): 4 (Met) Upper Body Dressing (QC): 5 (Met) Lower Body Dressing (QC): 4 (Met) On/Off Footwear (QC): 5 (Met) Toileting Hygiene (QC): 6 (Met) Toilet/Commode Transfer (QC): 4 1=Demonstrate adherence to instructed precautions during ADL tasks. 2=Patient will verbalize/demonstrate understanding of assistive devices/modifications for ADL. 3=Patient will improve strength/tolerance for activity to enable patient to perform ADL's. Ines Valdivia OT Aug 22, 2021 15:31
--- NOTE | 2021-08-23 07:39 | Therapy Team Discharge Summary ---
Therapy Discharge Summary Discharge Recommendations Date of Discharge Aug 22, 2021 at 10:11 Therapy D/C Recommendations: Home w/ Family Support Physical Therapy Patient came to rehab following a lumbar laminectomy. Upon evaluation patient performed bed mobility with mod assist, supine <-> sit dependent (assist of 2), sit <-> stand mod assist, transfers min assist, ambulated 10' with a rolling walker with min assist, and propelled a manual WC 100' with min assist. Patient has been performing bed mobility and transfer training, balance and endurance training, functional strengthening, stair training, gait training, and education. Patient has made good progress and has met all of his fpc goals except for supine <-> sit. Now, patient performs rolling with independence, supine <-> sit min assist, sit <-> stand and transfers SBA, car transfer SBA, ambulates 150' with a rolling walker with SBA (including 50' with at least 2 turns of 90 degrees but needs CGA for 10' over an uneven surface), and can go up and down 4 steps using 2 handrails with CGA. Patient has been discharged from this facility and will be discharged from PT at this time. Occupational Therapy Impaired Self-Care Skills PT Usp Goals Hardware Design Engineer Goals PT Usp Goals Time Frame: Sep 05, 2021 Roll Left to Right (QC): 4 Sit to Lying (QC): 4 Lying-Sitting on Side/Bed(QC): 4 Sit to Stand (QC): 4 Chair/Tvm-hh-Zjlme Xfer(QC): 4 Car Transfer (QC): 4 Does the Patient Walk: Yes Walk 10 feet (QC): 4 Walk 10ft-Uneven Surface(QC): 4 Walk 50ft with 2 Turns (QC): 4 Walk 150 ft (QC): 4 Wheel 50 feet with 2 turns (QC: 9 1 Step (curb) (QC): 4 4 Steps (QC): 4 12 Steps (QC): 88 Picking up an Object (QC): 88 OT Hardware Design Engineer Goals Usp Goals Time Frame: Sep 05, 2021 Eating (QC): 6 (Met) Oral Hygiene (QC): 6 (Met) Shower/Bathe Self (QC): 4 (Met) Upper Body Dressing (QC): 5 (Met) Lower Body Dressing (QC): 4 (Met) On/Off Footwear (QC): 5 (Met) Toileting Hygiene (QC): 6 (Met) Toilet/Commode Transfer (QC): 4 1=Demonstrate adherence to instructed precautions during ADL tasks. 2=Patient will verbalize/demonstrate understanding of assistive devices/modifications for ADL. 3=Patient will improve strength/tolerance for activity to enable patient to perform ADL's. ANITRA MORALES PT Aug 23, 2021 07:39
== END 2021-08-22 10:11 | disposition home health service (06) | DRG 560 ==
PROVIDERS: ADMIT Internal Medicine; ATTEND Internal Medicine
DX: Z47.89 Encounter for other orthopedic aftercare (principal); C22.0 Liver cell carcinoma; K56.7 Ileus, unspecified; E87.1 Hypo-osmolality and hyponatremia; R53.1 Weakness; Z98.1 Arthrodesis status; R33.9 Retention of urine, unspecified; I48.0 Paroxysmal atrial fibrillation; I25.10 Atherosclerotic heart disease of native coronary artery without angina pectoris; I10 Essential (primary) hypertension; E78.5 Hyperlipidemia, unspecified; K21.9 Gastro-esophageal reflux disease without esophagitis; R15.9 Full incontinence of feces; R32 Unspecified urinary incontinence; I25.2 Old myocardial infarction; Z95.1 Presence of aortocoronary bypass graft; Z79.82 Long term (current) use of aspirin; Z87.891 Personal history of nicotine dependence; Z95.5 Presence of coronary angioplasty implant and graft; Z88.8 Allergy status to other drugs, medicaments and biological substances; Z23 Encounter for immunization
CPT/HCPCS: 36415; 74018; 74022; 80053; 85025; 93005; 94664; 94760